=== PATIENT | female | born 1940 | race Caucasian/White ===

== ENCOUNTER → 2017-07-23 | Outpatient (CLI) | payer MEDICARE ==
[~2017-07-23] MED LIST: REGADENOSON 0.4 MG/5 ML SYRINGE IV ONE
--- NOTE | 2017-07-23 11:05 | ECHOF ---
Referral Reason:R94.35 EKG [id number] Chest [id number] Hypertension MEASUREMENTS -------- HEIGHT: 167.6 cm WEIGHT: 68.0 kg BP: IVSd: 1.0 cm (0.6 - 1.1) LVIDd: 2.6 cm (3.9 - 5.3) LVPWd: 1.3 cm (0.6 - 1.1) IVSs: 1.5 cm LVIDs: 1.3 cm LVPWs: 1.7 cm LAESV Index (A-L): 23.57 ml/m Ao Diam: 2.9 cm (2.0 - 3.7) AV Cusp: 1.6 cm (1.5 - 2.6) LA Diam: 2.5 cm (2.7 - 3.8) MV EXCURSION: 13.666 mm (> 18.000) MV EF SLOPE: 67 mm/s (70 - 150) EPSS: 0.3 cm MV E Patrick: 0.83 m/s MV DecT: 127 ms MV A Patrick: 1.06 m/s MV E/A Ratio: 0.78 RAP: 5.00 mmHg RVSP: 20.73 mmHg FINDINGS -------- Sinus rhythm. This was a technically good study. The left ventricular size is normal. There is borderline concentric left ventricular hypertrophy. Overall left ventricular systolic function is normal with, an EF between 55 - 60 %. The right ventricle is normal in size and function. The left atrium is normal in size. The right atrium is normal in size. Aortic valve is trileaflet and is mildly thickened. The mitral valve leaflets are mildly thickened. Mild mitral regurgitation is present. Mild tricuspid regurgitation present. The right ventricular systolic pressure, as measured by Doppl er, is 20.73mmHg. Pulmonic valve appears structurally normal. The aortic root, ascending aorta and aortic arch are normal. The pericardium is normal. CONCLUSIONS -------- 1. Sinus rhythm. 2. This was a technically good study. 3. The left ventricular size is normal. 4. There is borderline concentric left ventricular hypertrophy. 5. Overall left ventricular systolic function is normal with, an EF between 55 - 60 %. 6. The right ventricle is normal in size and function. 7. The left atrium is normal in size. 8. The right atrium is normal in size. 9. Aortic valve is trileaflet and is mildly thickened. 10. The mitral valve leaflets are mildly thickened. 11. Mild mitral regurgitation is present. 12. Mild tricuspid regurgitation present. 13. The right ventricular systolic pressure, as measured by Doppler, is 20.73mmHg. 14. Pulmonic valve appears structurally normal. 15. The aortic root, ascending aorta and aortic arch are normal. 16. The pericardium is normal. METAL ENGINEERING PROCESS WORKER: Vernell Lind RDCS
--- NOTE | 2017-07-23 12:08 | NM ---
EXAMINATION TYPE: NM stress lexiscan cardiolite DATE OF EXAM: 07/23/2017 COMPARISON: NONE HISTORY: Syncope fatigue weakness TECHNIQUE: After the intravenous administration of 9.5 mCi Tc 99m Sestamibi - Cardiolite resting SPE CT images acquired 45 minutes post injection. The patient received 0.4mg Lexiscan, 23.8 mCi Tc 99m Sestamibi - Stress images obtained [address] injection FINDINGS: No fixed or reversible perfusion defects are evident. Gated wall motion is unremarkable. Ej ection fraction 72% is normal. IMPRESSION: 1. No stress-induced ischemic changes
--- NOTE | 2017-07-23 12:14 | EST ---
EXERCISE STRESS DATE OF SERVICE: 07/23/2017 AGE: 77 SEX: Female HT: 5'6" WT: 150 pounds PROTOCOL: Lexiscan Cardiolite STAGE: DURATION OF EXERCISE: HEART RATE REST: 78 BLOOD PRESSURE REST: 138/88 MAXIMUM HEART RATE ACHIEVED: 103 MAXIMUM BLOOD PRESSURE: 141/83 85% MPHR: 123 100% MPHR: 145 METS: INDICATIONS: History of stroke. CLINICAL INFORMATION: This a Lexiscan Cardiolite stress test, the ECG portion report. Nuclear portion will be reported separately by Radiology. Baseline heart rate 78 beats per minute. Baseline blood pressure 138/88 mmHg. The patient received Lexiscan infusion per protocol. No chest pain noted. A 12-lead ECG at baseline was normal and there were no ST-segment abnormalities noted. Heart rate and blood pressure remained stable during the test. MMODL / IJN: [id number] /
== END | disposition home or self-care (01) ==
LOC: RADNMMAIN 07:52
PROVIDERS: ATTEND Family Medicine
DX: I08.3 Combined rheumatic disorders of mitral, aortic and tricuspid valves (principal); R55 Syncope and collapse; Z88.2 Allergy status to sulfonamides
CPT/HCPCS: 93017; 93306; 78452; A9500; J2785

== ENCOUNTER 2023-04-27 15:00 | Inpatient (IN) | payer MEDICARE ==
[2023-04-27] MEDS ORDERED: SODIUM CHLORIDE 0.9% 1,000 ML IV STA (15:23)
--- NOTE | 2023-04-27 15:25 | ED ---
General Adult HPI - General Chief complaint: Shortness of Breath Stated complaint: COVID+,Dehydration,General Weakness Time Seen by Provider: 04/27/23 15:03 Source: patient, EMS, RN notes reviewed Mode of arrival: EMS Limitations: no limitations - History of Present Illness Initial comments: Patient is a pleasant 82-year-old female sent to the emergency department with concerns for general weakness. Patient states she tested positive at home 1 week ago for covid 19 infection. Patient has been sick for a couple days prior to that. Patient has generalized weakness and fatigue. Patient does have cough. No significant dyspnea. Patient has decreased oral intake and decreased appetite. Patient has fatigue and general weakness. Patient does have history of lung cancer. Patient just finished a round of chemotherapy and is pending pet scan for further evaluation. - Related Data Home Medications Medication Instructions Recorded Confirmed ALPRAZolam [Xanax] 0.5 mg PO BID PRN 04/27/23 04/27/23 Acetaminophen Tab [Tylenol Tab] 750 mg PO Q4H PRN MDD 10 TABLETS 04/27/23 04/27/23 Albuterol Sulfate [Albuterol 1 puff PO RT-Q4H PRN 04/27/23 04/27/23 Sulfate Hfa] Ascorbic Acid [Vitamin C] 500 mg PO HS 04/27/23 04/27/23 Aspirin EC [Ecotrin Low Dose] 81 mg PO DAILY 04/27/23 04/27/23 Benzonatate [Tessalon Perle] 200 mg PO TID PRN 04/27/23 04/27/23 Calcium Carbonate [Calcium] 600 mg PO HS 04/27/23 04/27/23 Cholecalciferol [Vitamin D3 (25 25 mcg PO HS 04/27/23 04/27/23 Mcg = 1000 Iu)] Fluticasone Nasal [place] [Flonase 1 spray EA NOSTRIL HS 04/27/23 04/27/23 Nasal [place]] L.acidoph,Paracasei, B.lactis 2 cap PO DAILY 04/27/23 04/27/23 [Probiotic] Levothyroxine Sodium [Synthroid] 75 mcg PO SUMOWETHFR 04/27/23 04/27/23 Levothyroxine Sodium [Synthroid] 88 mcg PO TUSA 04/27/23 04/27/23 Loratadine [Claritin] 10 mg PO DAILY 04/27/23 04/27/23 Megestrol Acetate 625 mg PO DAILY 04/27/23 04/27/23 Omeprazole [PriLOSEC] 20 mg PO DAILY 04/27/23 04/27/23 Prochlorperazine [Compazine] 10 mg PO Q6H PRN 04/27/23 04/27/23 Rivaroxaban [Xarelto] 20 mg PO DAILY 04/27/23 04/27/23 Sertraline [Zoloft] 50 mg PO DAILY 04/27/23 04/27/23 Simvastatin [Zocor] 20 mg PO HS 04/27/23 04/27/23 traMADol HCl [Ultram] 50 - 100 mg PO Q6H PRN 04/27/23 04/27/23 Allergies Allergy/AdvReac Type Severity Reaction Status Date / Time sulfamethoxazole Allergy Rash/Hives Verified 04/27/23 17:56 [From Bactrim] trimethoprim [From Bactrim] Allergy Rash/Hives Verified 04/27/23 17:56 Review of Systems ROS Statement: Those systems with pertinent positive or pertinent negative responses have been documented in the HPI. ROS Other: All systems not noted in ROS Statement are negative. Constitutional: Denies: fever Eyes: Denies: eye pain ENT: Denies: ear pain Respiratory: Reports: as per HPI, cough Endocrine: Reports: fatigue Past Medical History Additional Past Medical History / Comment(s): Lung CA, History of Any Multi-Drug Resistant Organisms: None Reported Past Surgical History: No Surgical Hx Reported Past Psychological History: No Psychological Hx Reported Smoking Status: Former smoker Past Alcohol Use History: None Reported Past Drug Use History: None Reported General Exam Limitations: no limitations General appearance: alert, in no apparent distress Head exam: Present: normocephalic Eye exam: Present: normal appearance Neck exam: Present: normal inspection Respiratory exam: Present: normal lung sounds bilaterally Cardiovascular Exam: Present: regular rate, normal rhythm GI/Abdominal exam: Present: soft. Absent: tenderness Extremities exam: Present: normal inspection. Absent: pedal edema, calf tenderness Neurological exam: Present: alert. Absent: motor sensory deficit Psychiatric exam: Present: flat affect Skin exam: Present: normal color Course Vital Signs 04/27/23 04/27/23 04/27/23 15:05 15:10 15:22 Temperature 98.4 F Pulse Rate 98 Respiratory 18 22 Rate Blood Pressure 113/75 O2 Sat by Pulse 93 L 91 L Oximetry 04/27/23 04/27/23 04/27/23 16:38 18:04 21:00 Temperature 99.2 F Pulse Rate 112 H 106 H 105 H Respiratory 18 18 22 Rate Blood Pressure 126/80 110/73 128/78 O2 Sat by Pulse 96 96 96 Oximetry - Reevaluation(s) Reevaluation #1: 04/27/23 19:27 Chemistry still not resulted. We did call lab and they stated possibly another hour. EKG Findings - EKG Results: EKG: interpreted by ERMD, sinus rhythm, normal axis, normal QRS, normal ST/T EKG shows: tachycardia Medical Decision Making - Medical Decision Making Was pt. sent in by a medical professional or institution (, PA, VIRTUAL OFFICE ASSISTANT, urgent care, hospital, or long term...) When possible be specific @ -No Did you speak to anyone other than the patient for history (EMS, parent, family, police, friend...)? What history was obtained from this source @ -Family arrives and confirms history of lung cancer and pending peT scan tomorrow. Did you review nursing and triage notes (agree or disagree)? Why? @ -I reviewed and agree with nursing and triage notes Were old charts reviewed (outside hosp., previous admission, EMS record, old EKG, old radiological studies, urgent care reports/EKG's, long term records)? Report findings @ -No old charts were reviewed Differential Diagnosis (chest pain, altered mental status, abdominal pain women, abdominal pain men, vaginal bleeding, weakness, fever, dyspnea, syncope, headache, dizziness, GI bleed, back pain, seizure, CVA, palpatations, mental health, musculoskeletal)? @ -Differential Dyspnea: Coronary syndrome, arrhythmia, tamponade, asthma, COPD, pulmonary embolism, pneumonia, pneumothorax, pulmonary effusion, anaphylaxis, diabetic ketoacidosis, flailed chest, pulmonary contusion, diaphragmatic rupture, anemia, neuromuscu lar, this is not meant to be an all-inclusive list. EKG interpreted by me (3pts min.). @ -As above X-rays interpreted by me (1pt min.). @ -None done CT interpreted by me (1pt min.). @ -None done U/S interpreted by me (1pt. min.). @ -None done What testing was considered but not performed or refused? (CT, X-rays, U/S, labs)? Why? @ -None What meds were considered but not given or refused? Why? @ -None Did you discuss the management of the patient with other professionals (professionals i.e. , PA, VIRTUAL OFFICE ASSISTANT, lab, RT, psych nurse, geriatric social work professor, respiratory care assistant, teacher, disbursing officer, case work aide)? Give summary @ -Case was discussed with practitioner Peggy Olson who will admit covering hospital call Was smoking cessation discussed for >3mins.? @ -No Was critical care preformed (if so, how long)? @ -32 minutes critical care time Were there social determinants of health that impacted care today? How? (Homelessness, low income, unemployed, alcoholism, drug addiction, transportation, low edu. Level, literacy, decrease access to med. care, residential, rehab)? @ -No Was there de-escalation of care discussed even if they declined (Discuss DNR or withdrawal of care, Hospice)? DNR status @ -No What co-morbidities impacted this encounter? (DM, HTN, Smoking, COPD, CAD, C ancer, CVA, ARF, Chemo, Hep., AIDS, mental health diagnosis, sleep apnea, morbid obesity)? @ -None Was patient admitted / discharged? Hospital course, mention meds given and route, prescriptions, significant lab abnormalities, going to OR and other pertinent info. @ -Patient evaluated. Patient and family updated. Patient will be admitted with pulmonary and oncology consults . There is concern for pneumonia despite COVID-19 is patient does have elevated white blood cell count and Pro calcitonin. IV antibiotics have been ordered. Blood culture and lactic acid have been ordered previously. Undiagnosed new problem with uncertain prognosis? @ -No Drug Therapy requiring intensive monitoring for toxicity (Heparin, Nitro, Insulin, Cardizem)? @ -No Were any procedures done? @ -No Diagnosis/symptom? @ -Pneumonia, weakness, COVID-19, sepsis Acute, or Chronic, or Acute on Chronic? @ -Acute, acute, acute, acute Uncomplicated (without systemic symptoms) or Complicated (systemic symptoms)? @ -default Side effects of treatment? @ -No Exacerbation, Progression, or Severe Exacerbation? @ -No Poses a threat to life or bodily function? How? (Chest pain, USA, NC, pneumonia, PE, COPD, DKA, ARF, appy, cholecystitis, CVA, Diverticulitis, Homicidal, Suicidal, threat to staff... and all critical care pts) @ -No - Lab Data Result diagrams: 04/27/23 15:25 04/27/23 15:25 Lab Results 04/27/23 04/27/23 04/27/23 Range/Units 15:25 15:25 15:25 WBC 25.9 H (3.8-10.6) k/uL RBC 3.17 L (3.80-5.40) m/uL Hgb 10.8 L (11.4-16.0) gm/dL Hct 32.5 L (34.0-46.0) % MCV 102.5 H (80.0-100.0) fL MCH 34.1 (25.0-35.0) pg MCHC 33.3 (31.0-37.0) g/dL RDW 16.6 H (11.5-15.5) % Plt Count 452 H (150-450) k/uL MPV 7.3 Neutrophils % 89 % Lymphocytes % 7 % Monocytes % 3 % Eosinophils % 1 % Basophils % 0 % Neutrophils # 23.1 H (1.3-7.7) k/uL Lymphocytes # 1.7 (1.0-4.8) k/uL Monocytes # 0.7 (0-1.0) k/uL Eosinophils # 0.2 (0-0.7) k/uL Basophils # 0.1 (0-0.2) k/uL Anisocytosis Slight Macrocytosis Moderate PT 13.6 H (10.0-12.5) sec INR 1.3 H (<1.2) APTT 32.0 H (22.0-30.0) sec Sodium 131 L (135-145) mmol/L Potassium 4.1 (3.5-5.5) mmol/L Chloride 96 (96-109) mmol/L Carbon Dioxide 19.7 L (21.6-31.8) mmol/L Anion Gap 15.30 H (4.00-12.00) mmol/L BUN 14.7 (9.0-27.0) mg/dL Creatinine 0.6 (0.6-1.5) mg/dL Est GFR (CKD-EPI) 91 (>=60) Glucose 109 (70-110) mg/dL Plasma Lactic Acid Kevin (0.7-2.0) mmol/L Calcium 8.4 L (8.7-10.3) mg/dL Magnesium 1.8 (1.5-2.4) mg/dL Ferritin 771.0 H (10.0-291.0) ng/mL Total Bilirubin 0.3 (0.3-1.2) mg/dL AST 70 H (13-35) U/L ALT 165 H (8-44) U/L Alkaline Phosphatase 191 H (41-126) U/L Lactate Dehydrogenase 257 H (120-246) U/L C-Reactive Protein 21.60 H (0.00-0.80) mg/dL Total Protein 5.8 L (6.2-8.2) g/dL Albumin 3.2 L (3.8-4.9) g/dL Procalcitonin (0.02-0.09) ng/mL Urine Color Urine Appearance (Clear) Urine pH (5.0-8.0) Ur Specific [place] (1.001-1.035) Urine Protein (Negative) Urine Glucose (UA) (Negative) Urine Ketones (Negative) Urine Blood (Negative) Urine Nitrite (Negative) Urine Bilirubin (Negative) Urine Urobilinogen (<2.0) mg/dL Ur Leukocyte Esterase (Negative) Influenza Type A (PCR) (Not Detectd) Influenza Type B (PCR) (Not Detectd) RSV (PCR) (Not Detectd) SARS-CoV-2 (PCR) (Not Detectd) 04/27/23 04/27/23 04/27/23 Range/Units 15:25 15:25 15:25 WBC (3.8-10.6) k/uL RBC (3.80-5.40) m/uL Hgb (11.4-16.0) gm/dL Hct (34.0-46.0) % MCV (80.0-100.0) fL MCH (25.0-35.0) pg MCHC (31.0-37.0) g/dL RDW (11.5-15.5) % Plt Count (150-450) k/uL MPV Neutrophils % % Lymphocytes % % Monocytes % % Eosinophils % % Basophils % % Neutrophils # (1.3-7.7) k/uL Lymphocytes # (1.0-4.8) k/uL Monocytes # (0-1.0) k/uL Eosinophils # (0-0.7) k/uL Basophils # (0-0.2) k/uL Anisocytosis Macrocytosis PT (10.0-12.5) sec INR (<1.2) APTT (22.0-30.0) sec Sodium (135-145) mmol/L Potassium (3.5-5.5) mmol/L Chloride (96-109) mmol/L Carbon Dioxide (21.6-31.8) mmol/L Anion Gap (4.00-12.00) mmol/L BUN (9.0-27.0) mg/dL Creatinine (0.6-1.5) mg/dL Est GFR (CKD-EPI) (>=60) Glucose (70-110) mg/dL Plasma Lactic Acid Kevin 1.2 (0.7-2.0) mmol/L Calcium (8.7-10.3) mg/dL Magnesium (1.5-2.4) mg/dL Ferritin (10.0-291.0) ng/mL Total Bilirubin (0.3-1.2) mg/dL AST (13-35) U/L ALT (8-44) U/L Alkaline Phosphatase (41-126) U/L Lactate Dehydrogenase (120-246) U/L C-Reactive Protein (0.00-0.80) mg/dL Total Protein (6.2-8.2) g/dL Albumin (3.8-4.9) g/dL Procalcitonin 5.58 H (0.02-0.09) ng/mL Urine Color Urine Appearance (Clear) Urine pH (5.0-8.0) Ur Specific [place] (1.001-1.035) Urine Protein (Negative) Urine Glucose (UA) (Negative) Urine Ketones (Negative) Urine Blood (Negative) Urine Nitrite (Negative) Urine Bilirubin (Negative) Urine Urobilinogen (<2.0) mg/dL Ur Leukocyte Esterase (Negative) Influenza Type A (PCR) Not Detected (Not Detectd) Influenza Type B (PCR) Not Detected (Not Detectd) RSV (PCR) Not Detected (Not Detectd) SARS-CoV-2 (PCR) Detected A (Not Detectd) 04/27/23 Range/Units 15:25 WBC (3.8-10.6) k/uL RBC (3.80-5.40) m/uL Hgb (11.4-16.0) gm/dL Hct (34.0-46.0) % MCV (80.0-100.0) fL MCH (25.0-35.0) pg MCHC (31.0-37.0) g/dL RDW (11.5-15.5) % Plt Count (150-450) k/uL MPV Neutrophils % % Lymphocytes % % Monocytes % % Eosinophils % % Basophils % % Neutrophils # (1.3-7.7) k/uL Lymphocytes # (1.0-4.8) k/uL Monocytes # (0-1.0) k/uL Eosinophils # (0-0.7) k/uL Basophils # (0-0.2) k/uL Anisocytosis Macrocytosis PT (10.0-12.5) sec INR (<1.2) APTT (22.0-30.0) sec Sodium (135-145) mmol/L Potassium (3.5-5.5) mmol/L Chloride (96-109) mmol/L Carbon Dioxide (21.6-31.8) mmol/L Anion Gap (4.00-12.00) mmol/L BUN (9.0-27.0) mg/dL Creatinine (0.6-1.5) mg/dL Est GFR (CKD-EPI) (>=60) Glucose (70-110) mg/dL Plasma Lactic Acid Kevin (0.7-2.0) mmol/L Calcium (8.7-10.3) mg/dL Magnesium (1.5-2.4) mg/dL Ferritin (10.0-291.0) ng/mL Total Bilirubin (0.3-1.2) mg/dL AST (13-35) U/L ALT (8-44) U/L Alkaline Phosphatase (41-126) U/L Lactate Dehydrogenase (120-246) U/L C-Reactive Protein (0.00-0.80) mg/dL Total Protein (6.2-8.2) g/dL Albumin (3.8-4.9) g/dL Procalcitonin (0.02-0.09) ng/mL Urine Color Light Yellow Urine Appearance Clear (Clear) Urine pH 6.0 (5.0-8.0) Ur Specific [place] 1.021 (1.001-1.035) Urine Protein Trace H (Negative) Urine Glucose (UA) Negative (Negative) Urine Ketones Negative (Negative) Urine Blood Negative (Negative) Urine Nitrite Negative (Negative) Urine Bilirubin Negative (Negative) Urine Urobilinogen <2.0 (<2.0) mg/dL Ur Leukocyte Esterase Negative (Negative) Influenza Type A (PCR) (Not Detectd) Influenza Type B (PCR) (Not Detectd) RSV (PCR) (Not Detectd) SARS-CoV-2 (PCR) (Not Detectd) Critical Care Time Critical Care Time: Yes Total Critical Care Time: 32 Disposition Clinical Impression: Pneumonia, Sepsis, Lung cancer, COVID-19 Disposition: ADMITTED IP TO THIS HOSP Is patient prescribed a controlled substance at d/c from ED?: No Referrals: Sophia Law DO [Primary Care Provider] - 1-2 days Time of Disposition: 22:04
--- NOTE | 2023-04-27 15:45 | XR ---
EXAMINATION TYPE: XR chest 1V portable DATE OF EXAM: 04/27/2023 COMPARISON: None INDICATION: Covid TECHNIQUE: Single frontal view of the chest is obtained. FINDINGS: The heart size is normal. The pulmonary vasculature is normal. There is opacification through the lateral right lung. Correlate for a large pleural fluid collection . Consolidation appears to be at the right lower lobe. IMPRESSION: 1. Suggestion of a large pleural fluid collection with a right lower lobe consolidation. Follow-up re commended.
[2023-04-27 15:47] LABS: Anisocytosis Slight; Basophils # (A) 0.1 k/uL (0-0.2); Basophils % (A) 0 %; Eosinophils # (A) 0.2 k/uL (0-0.7); Eosinophils % (A) 1 %; HCT 32.5 % (34.0-46.0); HGB 10.8 gm/dL (11.4-16.0); Lymphocytes # (A) 1.7 k/uL (1.0-4.8); Lymphocytes % (A) 7 %; MCH 34.1 pg (25.0-35.0); MCHC 33.3 g/dL (31.0-37.0); MCV 102.5 fL (80.0-100.0); Macrocytosis Moderate; Mean Platelet Volume 7.3; Monocytes # (A) 0.7 k/uL (0-1.0); Monocytes % (A) 3 %; Neutrophils # (A) 23.1 k/uL (1.3-7.7); Neutrophils % (A) 89 %; Platelet Count 452 k/uL (150-450); RBC 3.17 m/uL (3.80-5.40); RDW 16.6 % (11.5-15.5); WBC 25.9 k/uL (3.8-10.6)
[2023-04-27 15:57] LABS: INR 1.3 (<1.2); Prothrombin Time 13.6 sec (10.0-12.5)
[2023-04-27 17:10] LABS: Appearance,Urine Clear (Clear); Bilirubin,Urine Negative (Negative); Blood,Urine Negative (Negative); Color,Urine Light Yellow; Glucose,Urine (UA) Negative (Negative); Ketones,Urine Negative (Negative); Leukocyte Esterase,Urine Negative (Negative); Nitrite,Urine Negative (Negative); Protein,Urine Trace (Negative); Specific Gravity,Urine 1.021 (1.001-1.035); Urobilinogen,Urine <2.0 mg/dL (<2.0)
[2023-04-27 20:34] LABS: ALT 165 U/L (8-44); AST 70 U/L (13-35); Albumin 3.2 g/dL (3.8-4.9); Alkaline Phosphatase 191 U/L (41-126); Blood Urea Nitrogen 14.7 mg/dL (9.0-27.0); Calcium 8.4 mg/dL (8.7-10.3); Carbon Dioxide 19.7 mmol/L (21.6-31.8); Chloride 96 mmol/L (96-109); Glucose 109 mg/dL (70-110); LDH 257 U/L (120-246); Magnesium 1.8 mg/dL (1.5-2.4); Potassium 4.1 mmol/L (3.5-5.5); Sodium 131 mmol/L (135-145); Total Bilirubin 0.3 mg/dL (0.3-1.2); Total Protein 5.8 g/dL (6.2-8.2)
[2023-04-27] MEDS: traMADol 50 MG TAB PO PRN (21:25)
[2023-04-27] MEDS ORDERED: PNEUMONIA PROTOCOL UTILIZED 1 EACH MISC PO PRN (22:04)
[2023-04-27] MEDS ORDERED: AZITHROMYCIN 500 MG in SODIUM CHLORIDE 0.9% 250 ML IVPB STA (22:04)
[2023-04-27] MEDS ORDERED: RX INFO: IV CONTRAST WAS GIVEN 1 EACH MISC MISCELLANE PRN (22:26)
[2023-04-27] MEDS: SODIUM CHLORIDE 0.9% 1,000 ML IV SCH (22:53)
--- NOTE | 2023-04-28 00:07 | CT ---
EXAM: CT Chest With Intravenous Contrast CLINICAL HISTORY: ITS.REASON CT Reason: history of lung cancer, pneumonia TECHNIQUE: Axial computed tomography images of the chest with intravenous contrast. CTDI is 5.3 mGy and DLP is 232.7 mGy-cm. This CT exam was performed using one or more of the following dose reduction techniques: automated exposure control, adjustment of the mA and/or kV according to patient size, and/or use of iterative reconstruction technique. COMPARISON: No relevant prior studies available. FINDINGS: Lungs: Consolidation and mucous plugging throughout the right upper and middle lobes. Mucous plugging and partial collapse of the right lower lobe. Only a small amount of the right lower lobe is aerated. Partial collapse of the left lower lobe. Pleural space: Small right pleural effusion. Heart: Unremarkable. Mediastinum: Hiatal hernia. Bones/joints: No acute findings. Soft tissues: Unremarkable. Vasculature: Unremarkable. Lymph nodes: Paratracheal and subcarinal adenopathy. IMPRESSION: 1. Consolidation and mucous plugging throughout the right upper and middle lobes. This could all represent malignancy, infection, or a combination of the two. 2. Mucous plugging and partial collapse of the right lower lobe. Only a small amount of the right lower lobe is aerated. 3. Small right pleural effusion. 4. Partial collapse of the left lower lobe. 5. Paratracheal and subcarinal adenopathy. 6. Hiatal hernia.
--- NOTE | 2023-04-28 06:55 | P.CNPUL ---
History of Present Illness Consult date: 04/28/23 Requesting physician: Mau Aguilar Reason for consult: pneumonia Chief complaint: Shortness of breath and cough History of present illness: I am seeing this patient in new consultation today 04/28/2023 after she presented yesterday to the emergency room with acute shortness of breath. She did test positive for COVID-19. Apparently, her had been positive for COVID-19 earlier in the week. Her PCP is Dr. Sophia Law out of [place], [place]. Patient is an 82-year-old female with past medical history significant for lung cancer, patient states she is undergoing systemic treatment with chemotherapy. She is unsure of who here oncologist is. She states her last round of chemotherapy was last week. She does not follow at this facility. She is a very poor historian, and there are no records to review. I'm uncertain if this is the patient's first COVID-19 infection or if she's been previously vaccinated. Patient is currently sitting up in bed, on 5 L/m nasal cannula. She does not normally use home O2. She is very fatigued. She is tachypneic breathing in the 30s to 40s. Patient reports ongoing shortness of breath for the last couple weeks. She's had an associated congested nonproductive cough. Admits to subjective fevers. Denies any hemoptysis. I did order a chest CT with contrast which showed volume loss of the right lung with collapse of right upper and middle lobes. This could be mucous plugging and consolidation as reported by radiologist or the patient's known pulmonary malignancy. There is also partial collapse of the left lower lobe. There is paratracheal and subcarinal adenopathy. CBC on arrival: WBC count 25.9, hemoglobin 10.8, hematocrit 32.5, platelets 452. BMP on arrival: Sodium 131, potassium 4.1, chloride 96, serum bicarb 19, BUN 14, creatinine 0.6, glucose 109. LFTs mildly elevated. UA not concerning for UTI. Procalcitonin elevated at 5.58. Obviously concern for superimposed bacterial infection. Patient is empirically covered on antib iotics. Currently is afebrile. Vitals are stable at this time. Review of Systems REVIEW OF SYSTEMS: CONSTITUTIONAL: Denies any recent significant weight loss or weight gain. Admits subjective fevers at home. EYES: Denies change in vision. EARS, NOSE, MOUTH, THROAT: Denies headaches, denies sore throat. CARDIOVASCULAR: Denies chest pain, palpitations or syncopal episodes. RESPIRATORY: See HPI. Also admits substernal chest pain only with coughing and deep breathing. GASTROINTESTINAL: Denies change in appetite, abdominal pain, nausea and vomitin g, or diarrhea GENITOURINARY: Denies hematuria, denies infections. MUSKULOSKELETAL: Denies pain, denies swelling. INTEGUMENTARY: Denies rash, denies eczema. NEUROLOGICAL: Denies recent memory loss, no recent seizure activity. PSYCHIATRIC: Denies anxiety, denies depression. HEMATOLOGIC/LYMPHATIC: Denies anemia, denies enlarged lymph node Past Medical History Past Medical History: CVA/TIA, GERD/Reflux, Pneumonia, Thyroid Disorder Additional Past Medical History / Comment(s): Lung CA, History of Any Multi-Drug Resistant Organisms: None Reported Past Surgical History: No Surgical Hx Reported Additional Past Surgical History / Comment(s): pt poor historian Past Psychological History: No Psychological Hx Reported Smoking Status: Former smoker Past Alcohol Use History: None Reported Past Drug Use History: None Reported Medications and Allergies Home Medications Medication Instructions Recorded Confirmed Type ALPRAZolam [Xanax] 0.5 mg PO BID PRN 04/27/23 04/27/23 History Acetaminophen Tab [Tylenol Tab] 750 mg PO Q4H PRN MDD 10 TABLETS 04/27/23 04/27/23 History Albuterol Sulfate [Albuterol 1 puff PO RT-Q4H PRN 04/27/23 04/27/23 History Sulfate Hfa] Ascorbic Acid [Vitamin C] 500 mg PO 04/27/23 04/27/23 History Aspirin EC [Ecotrin Low Dose] 81 mg PO DAILY 04/27/23 04/27/23 History Benzonatate [Tessalon Perle] 200 mg PO TID PRN 04/27/23 04/27/23 History Calcium Carbonate [Calcium] 600 mg PO 04/27/23 04/27/23 History Cholecalciferol [Vitamin D3 (25 25 mcg PO HS 04/27/23 04/27/23 History Mcg = 1000 Iu)] Fluticasone Nasal [place] [Flonase 1 spray EA NOSTRIL 04/27/23 04/27/23 History Nasal [place]] L.acidoph,Paracasei, B.lactis 2 cap PO DAILY 04/27/23 04/27/23 History [Probiotic] Levothyroxine Sodium [Synthroid] 75 mcg PO SUMOWETHFR 04/27/23 04/27/23 History Levothyroxine Sodium [Synthroid] 88 mcg PO TUSA 04/27/23 04/27/23 History Loratadine [Claritin] 10 mg PO DAILY 04/27/23 04/27/23 History Megestrol Acetate 625 mg PO DAILY 04/27/23 04/27/23 History Omeprazole [PriLOSEC] 20 mg PO DAILY 04/27/23 04/27/23 History Prochlorperazine [Compazine] 10 mg PO Q6H PRN 04/27/23 04/27/23 History Rivaroxaban [Xarelto] 20 mg PO DAILY 04/27/23 04/27/23 History Sertraline [Zoloft] 50 mg PO DAILY 04/27/23 04/27/23 History Simvastatin [Zocor] 20 mg PO HS 04/27/23 04/27/23 History traMADol HCl [Ultram] 50 - 100 mg PO Q6H PRN 04/27/23 04/27/23 History Allergies Allergy/AdvReac Type Severity Reaction Status Date / Time sulfamethoxazole Allergy Rash/Hives Verified 04/27/23 17:56 [From Bactrim] trimethoprim [From Bactrim] Allergy Rash/Hives Verified 04/27/23 17:56 Physical Exam Vitals: Vital Signs Temp Pulse Pulse Resp BP BP Pulse Ox 04/28/23 00:00 98.6 F 108 H 36 H 138/68 92 L 04/27/23 21:00 105 H 22 128/78 96 04/27/23 18:04 99.2 F 106 H 18 110/73 96 04/27/23 16:38 112 H 18 126/80 96 04/27/23 15:22 22 04/27/23 15:10 91 L 04/27/23 15:05 98.4 F 98 18 113/75 93 L Intake and Output 04/27/23 04/27/23 04/28/23 14:59 22:59 06:59 Other: Weight 61.235 kg 61.235 kg GENERAL EXAM: Alert, 82-year-old white female , very fatigued, and some mild respiratory distress.. HEAD: Normocephalic and atraumatic EYES: Normal reaction of pupils, equal size. NOSE: Clear with pink turbinates. THROAT: No erythema or exudates. NECK: No masses, no JVD. CHEST: No chest wall deformity. LUNGS: Equal air entry with diminished bibasilar lung sounds and scattered crackles. No wheezes or rhonchi. On 5 L/m nasal cannula. She is tachypneic. There is conversational dyspnea and the patient speaks in phrases. No accessory muscle use. CVS: S1 and S2 normal with no audible murmur, regular rhythm. No extra heart sounds ABDOMEN: No hepatosplenomegaly, active bowel sounds, no guarding or rigidity. SPINE: No scoliosis or deformity SKIN: No rashes CENTRAL NERVOUS SYSTEM: No focal deficits, tone is normal in all 4 extremities. EXTREMITIES: There is no peripheral edema, clubbing, or cyanosis. Peripheral pulses are intact. Results - Laboratory Findings CBC and BMP: 04/27/23 15:25 04/27/23 15:25 PT/INR, D-dimer PT 13.6 sec (10.0-12.5) H 04/27/23 15:25 INR 1.3 (<1.2) H 04/27/23 15:25 Abnormal lab findings: Abnormal Labs 04/27/23 04/27/23 04/27/23 15:25 15:25 15:25 WBC 25.9 H RBC 3.17 L Hgb 10.8 L Hct 32.5 L MCV 102.5 H RDW 16.6 H Plt Count 452 H Neutrophils # 23.1 H PT 13.6 H INR 1.3 H APTT 32.0 H Sodium 131 L Carbon Dioxide 19.7 L Anion Gap 15.30 H Calcium 8.4 L Ferritin 771.0 H AST 70 H ALT 165 H Alkaline Phosphatase 191 H Lactate Dehydrogenase 257 H C-Reactive Protein 21.60 H Total Protein 5.8 L Albumin 3.2 L Procalcitonin Urine Protein SARS-CoV-2 (PCR) 04/27/23 04/27/23 04/27/23 15:25 15:25 15:25 WBC RBC Hgb Hct MCV RDW Plt Count Neutrophils # PT INR APTT Sodium Carbon Dioxide Anion Gap Calcium Ferritin AST ALT Alkaline Phosphatase Lactate Dehydrogenase C-Reactive Protein Total Protein Albumin Procalcitonin 5.58 H Urine Protein Trace H SARS-CoV-2 (PCR) Detected A - Diagnostic Findings Chest x-ray: image reviewed CT scan - chest: image reviewed Assessment and Plan Assessment: Acute hypoxemic respiratory failure, currently on 5 L/m nasal cannula, likely multifactorial, secondary to acute COVID-19 infection/pneumonia, possible superimposed bacterial pneumonia, and primary lung cancer. Chest CT with contrast which showed volume loss of the right lung with collapse of right upper and middle lobes. There is minimal aeration of the right lower lobe. This could be mucous plugging and consolidation as reported by radiologist or the patient's known pulmonary malignancy. There is also partial collapse of the left lower lobe. There is paratracheal and subcarinal adenopathy. Leukocytosis, secondary to above Metabolic anion gap acidosis, likely related to COVID 19 pneumonia and sepsis Acute metabolic encephalopathy, secondary to above hypothyroidism History of hyperlipidemia Remote history of tobacco dependence Plan: Patient's medications, labs, imaging reviewed. Continue supplemental oxygen Continue bronchodilators Start the patient on IVP Decadron Continue empiric antibiotics. Procalcitonin level was elevated at 5.58. Blood cultures are pending. Medical oncology has been added to the case. Overall prognosis is guarded related to above-mentioned comorbidities We'll continue to follow and further recommendations are forthcoming. I have personally seen and examined the patient, performed the documentation and the assessment and plan as written. Number of minutes spent on the visit:20 Time with Patient: Greater than 30
--- NOTE | 2023-04-28 09:07 | XR ---
EXAMINATION TYPE: XR chest 1V portable DATE OF EXAM: 04/28/2023 COMPARISON: 04/27/2023 INDICATION: Pneumonia TECHNIQUE: Single frontal view of the chest is obtained. FINDINGS: The heart size is normal. The pulmonary vasculature is normal. Right lung is opacified. Some right lower lobe air bronchograms may be present. IMPRESSION: 1. Stable right lung opacification. Atelectasis, pneumonia, pleural effusions are within the differen tial. Follow-up is recommended.
[2023-04-28] MEDS: AZITHROMYCIN 500 MG TAB PO SCH (09:45)
[2023-04-28] MEDS: DEXAMETHASONE SOD PHOSPHATE 10 MG/ML 1 ML VIAL IVP SCH (09:45)
[2023-04-28] MEDS: SODIUM CHLORIDE 0.9% 1,000 ML IV SCH ×2 (09:46→20:16)
[2023-04-28] MEDS: ALBUTEROL HFA INHALER INHALATION PRN ×3 (09:50→17:22)
[2023-04-28] MEDS: traMADol 50 MG TAB PO PRN (09:58)
[2023-04-28 11:29] LABS: Anisocytosis Slight; Basophils % (A) 0 %; Eosinophils # (A) 0.1 k/uL (0-0.7); Eosinophils % (A) 1 %; HCT 30.7 % (34.0-46.0); HGB 9.9 gm/dL (11.4-16.0); Hypochromasia Slight; Lymphocytes # (A) 1.4 k/uL (1.0-4.8); Lymphocytes % (A) 6 %; MCH 33.9 pg (25.0-35.0); MCHC 32.2 g/dL (31.0-37.0); MCV 105.3 fL (80.0-100.0); Macrocytosis Moderate; Mean Platelet Volume 7.5; Monocytes # (A) 0.5 k/uL (0-1.0); Monocytes % (A) 2 %; Neutrophils % (A) 91 %; Platelet Count 456 k/uL (150-450); RBC 2.92 m/uL (3.80-5.40); RDW 16.6 % (11.5-15.5); WBC 22.1 k/uL (3.8-10.6)
[2023-04-28 11:45] LABS: African American GFR (CKD) >90 (>60 ml/min/1.73 sqM); Anion Gap 11 mmol/L; Blood Urea Nitrogen 11 mg/dL (7-17); Calcium 7.7 mg/dL (8.4-10.2); Carbon Dioxide 17 mmol/L (22-30); Chloride 102 mmol/L (98-107); Glucose 108 mg/dL (74-99); Non-African American GFR(CKD) >90 (>60 ml/min/1.73 sqM); Potassium 4.1 mmol/L (3.5-5.1); Sodium 130 mmol/L (137-145)
--- NOTE | 2023-04-28 14:23 | P.HPIM ---
History of Present Illness H&P Date: 04/28/23 History of present illness; patient is a 82-year-old lady with past medical sign ificant for lung cancer brought to the ER for generalized weakness. Patient stated that she has not been feeling herself in the last few days. Patient has been complaining of generalized weakness and fatigue. Patient did test positive for COVID-19 one week back. Patient has been complaining of cough and shortness of breath. Cough is productive. Denies any chest pain or palpitation. There is orthopnea or pnd. No complete of fever or chills at home. Patient has been complaining of decreased appetite. Because of the symptoms, patient came to the ER Initial lab work done in the ER showed WBC 25.9, hemoglobin 10.8, platelet count 452, sodium 131, potassium 4.1, BUN 14.7, creatinine 0.6, AST 70, ALT 165, CRP 21.6 UA negative for infection Influenza A not detected Influenza B not detected RSV not detected COVID-19 detected Chest x-ray done in the ER showed large pleural fluid election with right lower lobe consolidation CT chest done showed consolidation and mucous plugging throughout the right upper and middle lobes. Mucous plugging and collapse of the right lower lobe Patient admitted to internal medicine service REVIEW OF SYSTEMS: CONSTITUTIONAL: As mentioned above HEENT: No recent visual problems or hearing problems. Denied any sore throat. CARDIOVASCULAR: No chest pain, orthopnea, PND, no palpitations, no syncope. PULMONARY: As mentioned above GASTROINTESTINAL: No diarrhea, no nausea, no vomiting, no abdominal pain. NEUROLOGICAL: As mentioned above HEMATOLOGICAL: Denies any bleeding or petechiae. GENITOURINARY: Denies any burning micturition, frequency, or urgency. MUSCULOSKELETAL/RHEUMATOLOGICAL: Denies any joint pain, swelling, or any muscle pain. ENDOCRINE: Denies any polyuria or polydipsia. The rest of the 14-point review of systems is negative. PHYSICAL EXAMINATION: GENERAL: The patient is alert and oriented x3, chronically ill-looking HEENT: Pupils are round and equally reacting to light. EOMI. No scleral icterus. No conjunctival pallor. Normocephalic, atraumatic. No pharyngeal erythema. No thyromegaly. CARDIOVASCULAR: S1 and S2 present. No murmurs, rubs, or gallops. PULMONARY: Diminished breath sounds at the bases bilaterally., No crackles audible ABDOMEN: Soft, nontender, nondistended, normoactive bowel sounds. No palpable o rganomegaly. MUSCULOSKELETAL: No joint swelling or deformity. EXTREMITIES: No cyanosis, clubbing, or pedal edema. NEUROLOGICAL: Gross neurological examination did not reveal any focal deficits. SKIN: No rashes. Assessment and plan Acute hypoxemic respiratory failure COVID-19 pneumonia superimposed bacterial pneumonia History of lung cancer Leukocytosis Acute metabolic encephalopathy hypothyroidism History of hyperlipidemia Monitor vital signs Monitor CBC Monitor CMP Continue telemetry monitoring Follow-up on blood cultures Continue Rocephin and azithromycin Continue IV Solu-Medrol Pulmonology following ID consulted Labs and medication were reviewed.. Continue same treatment. Continue with symptomatic treatment. Resume home medication. Monitor labs and vitals. DVT and GI prophylaxis. Further recommendations as per clinical course of the patient Dictation was produced using [email or web address] dictation software. please excuse any grammatical, word or spelling errors. Past Medical History Past Medical History: CVA/TIA, GERD/Reflux, Pneumonia, Thyroid Disorder Additional Past Medical History / Comment(s): Lung CA, History of Any Multi-Drug Resistant Organisms: None Reported Past Surgical History: No Surgical Hx Reported Additional Past Surgical History / Comment(s): pt poor historian Past Psychological History: No Psychological Hx Reported Smoking Status: Former smoker Past Alcohol Use History: None Reported Past Drug Use History: None Reported Medications and Allergies Home Medications Medication Instructions Recorded Confirmed Type ALPRAZolam [Xanax] 0.5 mg PO BID PRN 04/27/23 04/27/23 History Acetaminophen Tab [Tylenol Tab] 750 mg PO Q4H PRN MDD 10 TABLETS 04/27/23 04/27/23 History Albuterol Sulfate [Albuterol 1 puff PO RT-Q4H PRN 04/27/23 04/27/23 History Sulfate Hfa] Ascorbic Acid [Vitamin C] 500 mg PO HS 04/27/23 04/27/23 History Aspirin EC [Ecotrin Low Dose] 81 mg PO DAILY 04/27/23 04/27/23 History Benzonatate [Tessalon Perle] 200 mg PO TID PRN 04/27/23 04/27/23 History Calcium Carbonate [Calcium] 600 mg PO HS 04/27/23 04/27/23 History Cholecalciferol [Vitamin D3 (25 25 mcg PO HS 04/27/23 04/27/23 History Mcg = 1000 Iu)] Fluticasone Nasal [place] [Flonase 1 spray EA NOSTRIL HS 04/27/23 04/27/23 History Nasal [place]] L.acidoph,Paracasei, B.lactis 2 cap PO DAILY 04/27/23 04/27/23 History [Probiotic] Levothyroxine Sodium [Synthroid] 75 mcg PO SUMOWETHFR 04/27/23 04/27/23 History Levothyroxine Sodium [Synthroid] 88 mcg PO TUSA 04/27/23 04/27/23 History Loratadine [Claritin] 10 mg PO DAILY 04/27/23 04/27/23 History Megestrol Acetate 625 mg PO DAILY 04/27/23 04/27/23 History Omeprazole [PriLOSEC] 20 mg PO DAILY 04/27/23 04/27/23 History Prochlorperazine [Compazine] 10 mg PO Q6H PRN 04/27/23 04/27/23 History Rivaroxaban [Xarelto] 20 mg PO DAILY 04/27/23 04/27/23 History Sertraline [Zoloft] 50 mg PO DAILY 04/27/23 04/27/23 History Simvastatin [Zocor] 20 mg PO HS 04/27/23 04/27/23 History traMADol HCl [Ultram] 50 - 100 mg PO Q6H PRN 04/27/23 04/27/23 History Allergies Allergy/AdvReac Type Severity Reaction Status Date / Time sulfamethoxazole Allergy Rash/Hives Verified 04/27/23 17:56 [From Bactrim] trimethoprim [From Bactrim] Allergy Rash/Hives Verified 04/27/23 17:56 Physical Exam Vitals: Vital Signs Temp Pulse Pulse Resp BP BP Pulse Ox 04/28/23 10:00 96 23 04/28/23 09:54 90 L 04/28/23 08:20 90 L 04/28/23 08:00 98.8 F 96 23 114/88 93 L 04/28/23 04:00 32 H 04/28/23 00:30 46 H 04/28/23 00:00 98.6 F 108 H 36 H 138/68 92 L 04/27/23 21:00 105 H 22 128/78 96 04/27/23 18:04 99.2 F 106 H 18 110/73 96 04/27/23 16:38 112 H 18 126/80 96 04/27/23 15:22 22 04/27/23 15:10 91 L 04/27/23 15:05 98.4 F 98 18 113/75 93 L Intake and Output 04/27/23 04/28/23 04/28/23 22:59 06:59 14:59 Other: Voiding Method External Catheter Weight 61.235 kg 61.235 kg Results CBC & Chem 7: 04/28/23 11:06 04/28/23 11:06 Labs: Abnormal Lab Results - Last 24 Hours (Table) 04/27/23 04/27/23 04/27/23 Range/Units 15:25 15:25 15:25 WBC 25.9 H (3.8-10.6) k/uL RBC 3.17 L (3.80-5.40) m/uL Hgb 10.8 L (11.4-16.0) gm/dL Hct 32.5 L (34.0-46.0) % MCV 102.5 H (80.0-100.0) fL RDW 16.6 H (11.5-15.5) % Plt Count 452 H (150-450) k/uL Neutrophils # 23.1 H (1.3-7.7) k/uL PT 13.6 H (10.0-12.5) sec INR 1.3 H (<1.2) APTT 32.0 H (22.0-30.0) sec Sodium 131 L (135-145) mmol/L Carbon Dioxide 19.7 L (21.6-31.8) mmol/L Anion Gap 15.30 H (4.00-12.00) mmol/L Calcium 8.4 L (8.7-10.3) mg/dL Ferritin 771.0 H (10.0-291.0) ng/mL AST 70 H (13-35) U/L ALT 165 H (8-44) U/L Alkaline Phosphatase 191 H (41-126) U/L Lactate Dehydrogenase 257 H (120-246) U/L C-Reactive Protein 21.60 H (0.00-0.80) mg/dL Total Protein 5.8 L (6.2-8.2) g/dL Albumin 3.2 L (3.8-4.9) g/dL Procalcitonin (0.02-0.09) ng/mL Urine Protein (Negative) SARS-CoV-2 (PCR) (Not Detectd) 04/27/23 04/27/23 04/27/23 Range/Units 15:25 15:25 15:25 WBC (3.8-10.6) k/uL RBC (3.80-5.40) m/uL Hgb (11.4-16.0) gm/dL Hct (34.0-46.0) % MCV (80.0-100.0) fL RDW (11.5-15.5) % Plt Count (150-450) k/uL Neutrophils # (1.3-7.7) k/uL PT (10.0-12.5) sec INR (<1.2) APTT (22.0-30.0) sec Sodium (135-145) mmol/L Carbon Dioxide (21.6-31.8) mmol/L Anion Gap (4.00-12.00) mmol/L Calcium (8.7-10.3) mg/dL Ferritin (10.0-291.0) ng/mL AST (13-35) U/L ALT (8-44) U/L Alkaline Phosphatase (41-126) U/L Lactate Dehydrogenase (120-246) U/L C-Reactive Protein (0.00-0.80) mg/dL Total Protein (6.2-8.2) g/dL Albumin (3.8-4.9) g/dL Procalcitonin 5.58 H (0.02-0.09) ng/mL Urine Protein Trace H (Negative) SARS-CoV-2 (PCR) Detected A (Not Detectd)
--- NOTE | 2023-04-28 15:15 | P.CONS ---
History of Present Illness - Reason for Consult Consult date: 04/28/23 oncological care Requesting physician: Mau Aguilar - Chief Complaint SOB - History of Present Illness Patient is an 82-year-old female with a significant history of CVA and lung cancer. Patient follows with Dr. Mckeon out of [place] for her oncological care. She reports she has completed 4 cycles of chemotherapy, receiving last cycle approximately 2 weeks ago. She is unaware of what regimen she is on. She was scheduled for PET/CT today outpatient but missed due to hospitalization. Patient presented to the emergency room with complaints of progressing shortness of breath. Chest x-ray revealed large pleural effusion collection with a right lower lobe consolidation. CT chest revealed consolidation and mucous plugging throughout the right upper and middle lobes. Mucous plugging and partial collapse of the right lower lobe. Small right pleural effusion. Partial collapse of the left lower lobe. Paratracheal and subcarinal adenopathy. Patient tested positive for COVID. Abx started. Pulmonology following with plan for possible bronch. CBC revealed, WBC 25.9, hemoglobin 10.8, platelets 452,000. Bilirubin 0.3, elevated LFTs. LDH elevated at 257. Pro-calcitonin 5.58. Patient afebrile, 93% SPO2 on 6 L nasal cannula Review of Systems 10 point ROS is negative except as stated in the HPI Past Medical History Past Medical History: CVA/TIA, GERD/Reflux, Pneumonia, Thyroid Disorder Additional Past Medical History / Comment(s): Lung CA, History of Any Multi-Drug Resistant Organisms: None Reported Past Surgical History: No Surgical Hx Reported Additional Past Surgical History / Comment(s): pt poor historian Past Psychological History: No Psychological Hx Reported Smoking Status: Former smoker Past Alcohol Use History: None Reported Past Drug Use History: None Reported Medications and Allergies Home Medications Medication Instructions Recorded Confirmed Type ALPRAZolam [Xanax] 0.5 mg PO BID PRN 04/27/23 04/27/23 History Acetaminophen Tab [Tylenol Tab] 750 mg PO Q4H PRN MDD 10 TABLETS 04/27/23 04/27/23 History Albuterol Sulfate [Albuterol 1 puff PO RT-Q4H PRN 04/27/23 04/27/23 History Sulfate Hfa] Ascorbic Acid [Vitamin C] 500 mg PO HS 04/27/23 04/27/23 History Aspirin EC [Ecotrin Low Dose] 81 mg PO DAILY 04/27/23 04/27/23 History Benzonatate [Tessalon Perle] 200 mg PO TID PRN 04/27/23 04/27/23 History Calcium Carbonate [Calcium] 600 mg PO HS 04/27/23 04/27/23 History Cholecalciferol [Vitamin D3 (25 25 mcg PO HS 04/27/23 04/27/23 History Mcg = 1000 Iu)] Fluticasone Nasal Fletcher [Flonase 1 spray EA NOSTRIL HS 04/27/23 04/27/23 History Nasal Fletcher] L.acidoph,Paracasei, B.lactis 2 cap PO DAILY 04/27/23 04/27/23 History [Probiotic] Levothyroxine Sodium [Synthroid] 75 mcg PO SUMOWETHFR 04/27/23 04/27/23 History Levothyroxine Sodium [Synthroid] 88 mcg PO TUSA 04/27/23 04/27/23 History Loratadine [Claritin] 10 mg PO DAILY 04/27/23 04/27/23 History Megestrol Acetate 625 mg PO DAILY 04/27/23 04/27/23 History Omeprazole [PriLOSEC] 20 mg PO DAILY 04/27/23 04/27/23 History Prochlorperazine [Compazine] 10 mg PO Q6H PRN 04/27/23 04/27/23 History Rivaroxaban [Xarelto] 20 mg PO DAILY 04/27/23 04/27/23 History Sertraline [Zoloft] 50 mg PO DAILY 04/27/23 04/27/23 History Simvastatin [Zocor] 20 mg PO 04/27/23 04/27/23 History traMADol HCl [Ultram] 50 - 100 mg PO Q6H PRN 04/27/23 04/27/23 History Allergies Allergy/AdvReac Type Severity Reaction Status Date / Time sulfamethoxazole Allergy Rash/Hives Verified 04/27/23 17:56 [From Bactrim] trimethoprim [From Bactrim] Allergy Rash/Hives Verified 04/27/23 17:56 Physical Exam Vitals: Vital Signs Temp Pulse Pulse Resp BP BP Pulse Ox 04/28/23 08:20 90 L 04/28/23 08:00 98.8 F 96 23 114/88 93 L 04/28/23 04:00 32 H 04/28/23 00:30 46 H 04/28/23 00:00 98.6 F 108 H 36 H 138/68 92 L 04/27/23 21:00 105 H 22 128/78 96 04/27/23 18:04 99.2 F 106 H 18 110/73 96 04/27/23 16:38 112 H 18 126/80 96 04/27/23 15:22 22 04/27/23 15:10 91 L 04/27/23 15:05 98.4 F 98 18 113/75 93 L Intake and Output 04/27/23 04/28/23 04/28/23 22:59 06:59 14:59 Other: Weight 61.235 kg 61.235 kg - Constitutional General appearance: average body habitus, no acute distress - EENT Eyes: anicteric sclerae, EOMI ENT: hearing grossly normal - Respiratory Respiratory: right: rales, rhonchi - Cardiovascular Rhythm: regular Heart sounds: normal: S1, S2 - Gastrointestinal General gastrointestinal: soft, no tenderness - Integumentary Integumentary: no cyanotic - Musculoskeletal palpable and tender mass noted on left lateral trunk along 6th-7th rib Musculoskeletal: generalized weakness - Psychiatric Psychiatric: A&O x's 3 Results CBC & Chem 7: 04/28/23 11:06 04/28/23 11:06 Labs: Abnormal Lab Results - Last 24 Hours (Table) 04/27/23 04/27/23 04/27/23 Range/Units 15:25 15:25 15:25 WBC 25.9 H (3.8-10.6) k/uL RBC 3.17 L (3.80-5.40) m/uL Hgb 10.8 L (11.4-16.0) gm/dL Hct 32.5 L (34.0-46.0) % MCV 102.5 H (80.0-100.0) fL RDW 16.6 H (11.5-15.5) % Plt Count 452 H (150-450) k/uL Neutrophils # 23.1 H (1.3-7.7) k/uL PT 13.6 H (10.0-12.5) sec INR 1.3 H (<1.2) APTT 32.0 H (22.0-30.0) sec Sodium 131 L (135-145) mmol/L Carbon Dioxide 19.7 L (21.6-31.8) mmol/L Anion Gap 15.30 H (4.00-12.00) mmol/L Calcium 8.4 L (8.7-10.3) mg/dL Ferritin 771.0 H (10.0-291.0) ng/mL AST 70 H (13-35) U/L ALT 165 H (8-44) U/L Alkaline Phosphatase 191 H (41-126) U/L Lactate Dehydrogenase 257 H (120-246) U/L C-Reactive Protein 21.60 H (0.00-0.80) mg/dL Total Protein 5.8 L (6.2-8.2) g/dL Albumin 3.2 L (3.8-4.9) g/dL Procalcitonin (0.02-0.09) ng/mL Urine Protein (Negative) SARS-CoV-2 (PCR) (Not Detectd) 04/27/23 04/27/23 04/27/23 Range/Units 15:25 15:25 15:25 WBC (3.8-10.6) k/uL RBC (3.80-5.40) m/uL Hgb (11.4-16.0) gm/dL Hct (34.0-46.0) % MCV (80.0-100.0) fL RDW (11.5-15.5) % Plt Count (150-450) k/uL Neutrophils # (1.3-7.7) k/uL PT (10.0-12.5) sec INR (<1.2) APTT (22.0-30.0) sec Sodium (135-145) mmol/L Carbon Dioxide (21.6-31.8) mmol/L Anion Gap (4.00-12.00) mmol/L Calcium (8.7-10.3) mg/dL Ferritin (10.0-291.0) ng/mL AST (13-35) U/L ALT (8-44) U/L Alkaline Phosphatase (41-126) U/L Lactate Dehydrogenase (120-246) U/L C-Reactive Protein (0.00-0.80) mg/dL Total Protein (6.2-8.2) g/dL Albumin (3.8-4.9) g/dL Procalcitonin 5.58 H (0.02-0.09) ng/mL Urine Protein Trace H (Negative) SARS-CoV-2 (PCR) Detected A (Not Detectd) Abdominal x-ray: report reviewed CT scan - chest: report reviewed Assessment and Plan (1) COVID-19 Current Visit: Yes Status: Acute Priority: High Code(s): U07.1 - COVID-19 SNOMED Code(s): 167851477 (2) Lung cancer Current Visit: Yes Status: Acute Priority: High Code(s): C34.90 - MALIGNANT NEOPLASM OF UNSP PART OF UNSP BRONCHUS OR LUNG SNOMED Code(s): 939435520 (3) Pneumonia Current Visit: Yes Status: Acute Priority: High Code(s): J18.9 - PNEUMONIA, UNSPECIFIED ORGANISM SNOMED Code(s): 214878117 Plan: COVID 19/Pneumonia: -Presented with progressing SOB. Tested positive for COVID -Chest x-ray revealed large pleural effusion collection with a right lower lobe consolidation. CT chest revealed consolidation and mucous plugging throughout the right upper and middle lobes. Mucous plugging and partial collapse of the right lower lobe. Small right pleural effusion. Partial collapse of the left lower lobe. Paratracheal and subcarinal adenopathy. Abx started for suspected pneumonia. -Pulmonology following. Agree with plan for possible bronch -Defer management to pulm and IM team Lung caner: -Significant history of lung cancer. Patient follows with Dr. Mckeon out of [place] for her oncological care. She reports she has completed 4 cycles of chemotherapy, receiving last cycle approximately 2 weeks ago. She is unaware of what regimen she is on. She was scheduled for PET/CT today outpatient but missed due to hospitalization. -Will request records from Dr. Mckeon's office -Continue to monitor CBC, as counts could drop due to recent chemo attests: I have seen and examined pt, performed H&P, developed impression and plan of care. Discussed with dictator. Agree with documentation, dictated as a scribe.
[2023-04-28] MEDS: LEVOTHYROXINE 75 MCG TAB PO SCH (16:31)
[2023-04-28] MEDS: ALPRAZolam 0.5 MG TAB PO PRN (17:17)
[2023-04-28] MEDS: guaiFENesin SYRUP 100MG/5ML 200 MG/10 ML CUP PO PRN (17:17)
[2023-04-28] MEDS: ATORVASTATIN 10 MG TAB PO SCH (20:11)
[2023-04-28] MEDS: ASCORBIC ACID 500 MG TAB PO SCH (20:11)
[2023-04-29] MEDS: ACETAMINOPHEN TAB 500 MG TAB PO PRN ×2 (03:35→19:53)
[2023-04-29] MEDS: ALPRAZolam 0.5 MG TAB PO PRN ×2 (05:10→14:48)
[2023-04-29] MEDS: SODIUM CHLORIDE 0.9% 1,000 ML IV SCH ×2 (05:32→15:43)
[2023-04-29] MEDS: LEVOTHYROXINE 75 MCG TAB PO SCH (05:33)
[2023-04-29] MEDS: ASPIRIN 81 MG PO SCH (09:00)
[2023-04-29] MEDS: LORATADINE 10 MG TAB PO SCH (09:00)
[2023-04-29] MEDS: SERTRALINE 50 MG TAB PO SCH (09:00)
[2023-04-29] MEDS: RIVAROXABAN 20 MG TAB PO SCH (09:01)
[2023-04-29] MEDS: MEGESTROL 400 MG/10 ML CUP PO SCH (09:01)
[2023-04-29] MEDS: AZITHROMYCIN 500 MG TAB PO SCH (09:01)
[2023-04-29] MEDS: DEXAMETHASONE SOD PHOSPHATE 10 MG/ML 1 ML VIAL IVP SCH (09:02)
[2023-04-29 10:28] LABS: Anisocytosis Slight; Basophils # (A) 0.1 k/uL (0-0.2); Basophils % (A) 0 %; Eosinophils # (A) 0.1 k/uL (0-0.7); Eosinophils % (A) 0 %; HCT 30.9 % (34.0-46.0); HGB 9.9 gm/dL (11.4-16.0); Hypochromasia Slight; Lymphocytes # (A) 2.5 k/uL (1.0-4.8); Lymphocytes % (A) 10 %; MCH 33.7 pg (25.0-35.0); MCHC 31.9 g/dL (31.0-37.0); MCV 105.4 fL (80.0-100.0); Macrocytosis Moderate; Mean Platelet Volume 7.7; Monocytes # (A) 0.8 k/uL (0-1.0); Monocytes % (A) 3 %; Neutrophils # (A) 22.5 k/uL (1.3-7.7); Neutrophils % (A) 86 %; Platelet Count 620 k/uL (150-450); RBC 2.93 m/uL (3.80-5.40); RDW 16.6 % (11.5-15.5); WBC 26.1 k/uL (3.8-10.6)
[2023-04-29 11:01] LABS: Potassium 3.9 mmol/L (3.5-5.1)
[2023-04-29 11:02] LABS: African American GFR (CKD) >90 (>60 ml/min/1.73 sqM); Anion Gap 10 mmol/L; Blood Urea Nitrogen 10 mg/dL (7-17); Calcium 7.6 mg/dL (8.4-10.2); Carbon Dioxide 18 mmol/L (22-30); Chloride 103 mmol/L (98-107); Glucose 138 mg/dL (74-99); Non-African American GFR(CKD) >90 (>60 ml/min/1.73 sqM); Sodium 131 mmol/L (137-145)
--- NOTE | 2023-04-29 14:12 | P.PN ---
Subjective Progress Note Date: 04/29/23 I am seeing this patient in new consultation today 04/28/2023 after she presented yesterday to the emergency room with acute shortness of breath. She did test positive for COVID-19. Apparently, her had been positive for COVID-19 earlier in the week. Her PCP is Dr. Sophia Law out of [place], [place]. Patient is an 82-year-old female with past medical history significant for lung cancer, patient states she is undergoing systemic treatment with chemotherapy. She is unsure of who here oncologist is. She states her last round of chemotherapy was last week. She does not follow at this facility. She is a very poor historian, and there are no records to review. I'm uncertain if this is the patient's first COVID-19 infection or if she's been previously vaccinated. Patient is currently sitting up in bed, on 5 L/m nasal cannula. She does not normally use home O2. She is very fatigued. She is tachypneic breathing in the 30s to 40s. Patient reports ongoing shortness of breath for the last couple weeks. She's had an associated congested nonproductive cough. Admits to subjective fevers. Denies any hemoptysis. I did order a chest CT with contrast which showed volume loss of the right lung with collapse of right upper and middle lobes. This could be mucous plugging and consolidation as reported by radiologist or the patient's known pulmonary malignancy. There is also partial collapse of the left lower lobe. There is paratracheal and subcarinal adenopathy. CBC on arrival: WBC count 25.9, hemoglobin 10.8, hematocrit 32.5, platelets 452. BMP on arrival: Sodium 131, potassium 4.1, chloride 96, serum bicarb 19, BUN 14, creatinine 0.6, glucose 109. LFTs mildly elevated. UA not concerning for UTI. Procalcitonin elevated at 5.58. Obviously concern for superimposed bacterial infection. Patient is empirically covered on antibiotics. Currently is afebrile. Vitals are stable at this time. The patient is seen today 04/29/2023 in follow-up on the regular medical floor. She is currently sitting up in a chair at the bedside. Awake and alert in no acute distress. She is breathing easier today compared to yesterday. She is still on 6 L high flow nasal cannula. She has normal saline at 100. Chest x- ray shows near complete opacification of the right lung. Her family is at the bedside. She did receive chemotherapy 4 treatments. She is scheduled for an outpatient PET scan. The plan is for initiation of immunotherapy. She had her biopsy and testing done at [facility]. She follows with Dr. Mckeon in [place] for her oncology needs. White count 26.1. Hemoglobin 9.9. Platelets 620. Sodium 131. Potassium 3.9. Bicarb 18. BUN 10. Creatinine 0.48. She remains on bronchodilators, Decadron. Antibiotics in form of ceftriaxone. Anticoagulated with Xarelto. Objective - Vital Signs Vital signs: Vital Signs Temp 99.1 F 04/29/23 07:19 Pulse 94 04/29/23 07:19 Resp 18 04/29/23 09:00 BP 109/70 04/29/23 07:19 Pulse Ox 94 L 04/29/23 07:19 FiO2 Intake & Output 04/28/23 04/29/23 04/29/23 18:59 06:59 18:59 Output Total 300 Balance -300 Output: Urine 300 Other: Voiding Method External Catheter External Catheter External Catheter # Voids 2 # Bowel Movements 1 - Exam GENERAL EXAM: Alert, 82-year-old female , currently up in a chair, on 6 L high flow nasal cannula, some mild respiratory distress. HEAD: Normocephalic and atraumatic EYES: Normal reaction of pupils, equal size. NOSE: Clear with pink turbinates. THROAT: No erythema or exudates. NECK: No masses, no JVD. CHEST: No chest wall deformity. LUNGS: Equal air entry with diminished bibasilar lung sounds and scattered crackles. No wheezes or rhonchi. No accessory muscle use. CVS: S1 and S2 normal with no audible murmur, regular rhythm. No extra heart sounds ABDOMEN: No hepatosplenomegaly, active bowel sounds, no guarding or rigidity. SPINE: No scoliosis or deformity SKIN: No rashes CENTRAL NERVOUS SYSTEM: No focal deficits, tone is normal in all 4 extremities. EXTREMITIES: There is no peripheral edema, clubbing, or cyanosis. Peripheral pulses are intact. - Labs CBC & Chem 7: 04/29/23 10:11 04/29/23 10:11 Labs: Abnormal Lab Results - Last 24 Hours (Table) 04/29/23 04/29/23 Range/Units 10:11 10:11 WBC 26.1 H (3.8-10.6) k/uL RBC 2.93 L (3.80-5.40) m/uL Hgb 9.9 L (11.4-16.0) gm/dL Hct 30.9 L (34.0-46.0) % MCV 105.4 H (80.0-100.0) fL RDW 16.6 H (11.5-15.5) % Plt Count 620 H (150-450) k/uL Neutrophils # 22.5 H (1.3-7.7) k/uL Sodium 131 L (137-145) mmol/L Carbon Dioxide 18 L (22-30) mmol/L Creatinine 0.48 L (0.52-1.04) mg/dL Glucose 138 H (74-99) mg/dL Calcium 7.6 L (8.4-10.2) mg/dL Microbiology - Last 24 Hours (Table) 04/27/23 20:53 Blood Culture - Preliminary Blood 04/27/23 20:47 Blood Culture - Preliminary Blood Assessment and Plan Assessment: Acute hypoxemic respiratory failure, currently on 5 L/m nasal cannula, likely multifactorial, secondary to acute COVID-19 infection/pneumonia, possible superimposed bacterial pneumonia, and primary lung cancer. Chest CT with contrast which showed volume loss of the right lung with collapse of right upper and middle lobes. There is minimal aeration of the right lower lobe. This could be mucous plugging and consolidation as reported by radiologist or the patient's known pulmonary malignancy. There is also partial collapse of the left lower lobe. There is paratracheal and subcarinal adenopathy. Leukocytosis, secondary to above History of lung cancer diagnosed at [facility], followed with Dr. Mckeon in [place], received chemotherapy, plan is for outpatient PET scan and possible immunotherapy Metabolic anion gap acidosis, likely related to COVID 19 pneumonia and sepsis Acute metabolic encephalopathy, secondary to above Hypothyroidism History of hyperlipidemia Remote history of tobacco dependence Plan: The patient was seen and evaluated Chest x-ray, labs and medications reviewed Currently on 6 L high flow nasal cannula Titrate down the FiO2 as tolerated Continue bronchodilators, Decadron May require home oxygen Plan is for subacute rehab possibly in [place] I have personally seen and examined the patient, performed the documentation and the assessment and plan as written. Number of minutes spent on the visit: 10.
--- NOTE | 2023-04-29 15:24 | P.PN ---
Subjective Progress Note Date: 04/29/23 Principal diagnosis: reason for follow-up is COVID-19 and pneumonia Patient is a 82-year-old female with a past medical history significant for lung cancer CVA TIA reflux pneumonia patient was brought into the hospital for evaluation generalized weakness apparently the patient did tested positive at home about a week ago for COVID-19 infection and the patient has been getting sick over the last few days, CT of the chest with consolidation and mucous plugging throughout the right upper and middle lobe concerning for possible pneumonia. On today's evaluation that is 04/29/2023 patient did have a low-grade fever of 99.1 degrees for hide this morning the patient is afebrile since then patient mention breathing more comfortably currently on 6 L nasal cannula oxygen denies any chest pain no worsening cough or sputum production no abdominal pain and no diarrhea. Patient did have white count of 26.1, creatinine 0.43, procalcitonin is 5.58 blood cultures so far negative sputum not collected Objective - Vital Signs Vital signs: Vital Signs Temp 97.8 F 04/29/23 13:57 Pulse 93 04/29/23 13:57 Resp 18 04/29/23 13:57 BP 101/66 04/29/23 13:57 Pulse Ox 96 04/29/23 13:57 FiO2 Intake & Output 04/28/23 04/29/23 04/29/23 18:59 06:59 18:59 Output Total 300 Balance -300 Output: Urine 300 Other: Voiding Method External Catheter External Catheter External Catheter # Voids 2 # Bowel Movements 1 - Exam GENERAL DESCRIPTION: An elderly female lying in bed in no distress RESPIRATORY SYSTEM: Unlabored breathing , decreased breath sounds at bases HEART: S1 S2 regular rate and rhythm , ABDOMEN: Soft , no tenderness EXTREMITIES: No edema feet - Labs CBC & Chem 7: 04/29/23 10:11 04/29/23 10:11 Labs: Abnormal Lab Results - Last 24 Hours (Table) 04/29/23 04/29/23 Range/Units 10:11 10:11 WBC 26.1 H (3.8-10.6) k/uL RBC 2.93 L (3.80-5.40) m/uL Hgb 9.9 L (11.4-16.0) gm/dL Hct 30.9 L (34.0-46.0) % MCV 105.4 H (80.0-100.0) fL RDW 16.6 H (11.5-15.5) % Plt Count 620 H (150-450) k/uL Neutrophils # 22.5 H (1.3-7.7) k/uL Sodium 131 L (137-145) mmol/L Carbon Dioxide 18 L (22-30) mmol/L Creatinine 0.48 L (0.52-1.04) mg/dL Glucose 138 H (74-99) mg/dL Calcium 7.6 L (8.4-10.2) mg/dL Microbiology - Last 24 Hours (Table) 04/27/23 20:53 Blood Culture - Preliminary Blood 04/27/23 20:47 Blood Culture - Preliminary Blood Assessment and Plan (1) Allergy to sulfa drugs Current Visit: Yes Status: Acute Code(s): Z88.2 - ALLERGY STATUS TO SULFONAMIDES SNOMED Code(s): 65644340 (2) COVID-19 Current Visit: Yes Status: Acute Priority: High Code(s): U07.1 - COVID-19 SNOMED Code(s): 118825046 (3) Pneumonia Current Visit: Yes Status: Acute Priority: High Code(s): J18.9 - PNEUMONIA, UNSPECIFIED ORGANISM SNOMED Code(s): 011719068 Plan: 1patient presented to the hospital with increasing weakness and this patient tested positive for COVID-19 about a week ago now presenting to the hospital with increasing weakness cough patient did have elevated white count and CT of the chest that shows consolidation and mucous plugging throughout the right upper and lower lobe concerning for secondary bacterial pneumonia 2patient did have elevated CRP and a procalcitonin, sputum pending collection 3patient to continue the patient on Rocephin and Zithromax while waiting for the culture to finalize Dictation was produced using [employer] dictation software. please excuse any grammatical, word or spelling errors. Time with Patient: Less than 30
--- NOTE | 2023-04-29 15:25 | P.CONS ---
History of Present Illness - Reason for Consult Consult date: 04/28/23 COVID, pneumonia, elevated WBC Requesting physician: Peggy Arshad - Chief Complaint Generalized weakness x few days - History of Present Illness Patient is a 82-year-old female with a past medical history significant for lung cancer CVA TIA reflux pneumonia patient was brought into the hospital for evaluation generalized weakness apparently the patient did t ested positive at home about a week ago for COVID-19 infection and the patient has been getting sick over the last few days patient has been complaining of mostly generalized weakness and fatigue no energy patient did have a cough which is mild in intensity with occasional clear sputum no hemoptysis no pleuritic chest pain no significant shortness of breath did have decreased oral intake and decreased appetite patient denies having any nausea or vomiting no abdominal pain or any diarrhea with the symptoms the patient was evaluated on presentation to the hospital the patient was afebrile and no fever has been recorded subsequently patient was noted to be hypoxic with O2 sats of 93% on room air patient did have a white count of 25.9 creatinine 0.6 enzymes are elevated she did have a CRP of 21.6 a procalcitonin of 5.58 urine was negative tested positive for COVID patient did have a chest x-ray large pleural effusion collection with right lower lobe consolidation CT of the chest consolidation and mucous plugging throughout the right upper and middle lobes this could represent malignancy infection or both patient was started on Rocephin and Zithromax in addition to the dexamethasone infectious disease was consulted for further management of antibiotic therapy Review of Systems Positive point and negatives has been mentioned in the HPI, complete review of systems was performed and all other systems are negative Past Medical History Past Medical History: CVA/TIA, GERD/Reflux, Pneumonia, Thyroid Disorder Additional Past Medical History / Comment(s): Lung CA, History of Any Multi-Drug Resistant Organisms: None Reported Past Surgical History: No Surgical Hx Reported Additional Past Surgical History / Comment(s): pt poor historian Past Psychological History: No Psychological Hx Reported Smoking Status: Former smoker Past Alcohol Use History: None Reported Past Drug Use History: None Reported Medications and Allergies Home Medications Medication Instructions Recorded Confirmed Type Acetaminophen Tab [Tylenol] 750 mg PO Q4H PRN MDD 10 TABLETS 04/27/23 04/27/23 History Albuterol Sulfate [Albuterol 1 puff PO RT-Q4H PRN 04/27/23 04/27/23 History Sulfate Hfa] Ascorbic Acid [Vitamin C] 500 mg PO HS 04/27/23 04/27/23 History Aspirin EC [Ecotrin Low Dose] 81 mg PO DAILY 04/27/23 04/27/23 History Benzonatate [Tessalon Perle] 200 mg PO TID PRN 04/27/23 04/27/23 History Calcium Carbonate [Calcium] 600 mg PO HS 04/27/23 04/27/23 History Cholecalciferol [Vitamin D3 (25 25 mcg PO HS 04/27/23 04/27/23 History Mcg = 1000 Iu)] Fluticasone Nasal Usk [Flonase 1 spray EA NOSTRIL HS 04/27/23 04/27/23 History Nasal Usk] L.acidoph,Paracasei, B.lactis 2 cap PO DAILY 04/27/23 04/27/23 History [Probiotic] Levothyroxine Sodium [Synthroid] 75 mcg PO SUMOWETHFR 04/27/23 04/27/23 History Levothyroxine Sodium [Synthroid] 88 mcg PO TUSA 04/27/23 04/27/23 History Loratadine [Claritin] 10 mg PO DAILY 04/27/23 04/27/23 History Megestrol Acetate 625 mg PO DAILY 04/27/23 04/27/23 History Omeprazole [PriLOSEC] 20 mg PO DAILY 04/27/23 04/27/23 History Prochlorperazine [Compazine] 10 mg PO Q6H PRN 04/27/23 04/27/23 History Rivaroxaban [Xarelto] 20 mg PO DAILY 04/27/23 04/27/23 History Sertraline [Zoloft] 50 mg PO DAILY 04/27/23 04/27/23 History Simvastatin [Zocor] 20 mg PO HS 04/27/23 04/27/23 History ALPRAZolam [Xanax] 0.5 mg PO BID PRN 3 Days #6 tab 05/06/23 Rx Amoxic-Pot Clav 875-125Mg 1 each PO Q12HR 7 Days #14 tab 05/06/23 Rx [Augmentin 875-125] guaiFENesin SYRUP 100MG/5ML 200 mg PO Q6HR PRN 5 Days #200 ml 05/06/23 Rx [Robitussin] traMADol HCl [Ultram] 50 mg PO Q6H PRN 3 Days #12 tab 05/06/23 Rx Allergies Allergy/AdvReac Type Severity Reaction Status Date / Time sulfamethoxazole Allergy Rash/Hives Verified 04/27/23 17:56 [From Bactrim] trimethoprim [From Bactrim] Allergy Rash/Hives Verified 04/27/23 17:56 Physical Exam Vitals: Vital Signs Temp Pulse Pulse Resp BP BP Pulse Ox 04/28/23 10:00 96 23 04/28/23 09:54 90 L 04/28/23 08:20 90 L 04/28/23 08:00 98.8 F 96 23 114/88 93 L 04/28/23 04:00 32 H 04/28/23 00:30 46 H 04/28/23 00:00 98.6 F 108 H 36 H 138/68 92 L 04/27/23 21:00 105 H 22 128/78 96 04/27/23 18:04 99.2 F 106 H 18 110/73 96 04/27/23 16:38 112 H 18 126/80 96 04/27/23 15:22 22 04/27/23 15:10 91 L 04/27/23 15:05 98.4 F 98 18 113/75 93 L Intake and Output 04/27/23 04/28/23 04/28/23 22:59 06:59 14:59 Other: Voiding Method External Catheter Weight 61.235 kg 61.235 kg GENERAL DESCRIPTION: Elderly female lying in bed, no distress. No tachypnea or accessory muscle of respiration use. HEENT: Shows Pallor , no scleral icterus. Oral mucous membrane is dry. NECK: Trachea central, no thyromegaly. LUNGS: Unlabored breathing. C coarse breath sounds bilaterally no wheeze or crackle. HEART: S1, S2, regular rate and rhythm. No loud murmur ABDOMEN: Soft, no tenderness , guarding or rigidity, no organomegaly EXTREMITIES: No edema of feet. SKIN: No rash, no masses palpable. NEUROLOGICAL: The patient is awake, alert, oriented x3, mood and affect normal. Results CBC & Chem 7: 05/05/23 04:23 05/05/23 04:23 Labs: Abnormal Lab Results - Last 24 Hours (Table) 04/27/23 04/27/23 04/27/23 Range/Units 15:25 15:25 15:25 WBC 25.9 H (3.8-10.6) k/uL RBC 3.17 L (3.80-5.40) m/uL Hgb 10.8 L (11.4-16.0) gm/dL Hct 32.5 L (34.0-46.0) % MCV 102.5 H (80.0-100.0) fL RDW 16.6 H (11.5-15.5) % Plt Count 452 H (150-450) k/uL Neutrophils # 23.1 H (1.3-7.7) k/uL PT 13.6 H (10.0-12.5) sec INR 1.3 H (<1.2) APTT 32.0 H (22.0-30.0) sec Sodium 131 L (135-145) mmol/L Carbon Dioxide 19.7 L (21.6-31.8) mmol/L Anion Gap 15.30 H (4.00-12.00) mmol/L Calcium 8.4 L (8.7-10.3) mg/dL Ferritin 771.0 H (10.0-291.0) ng/mL AST 70 H (13-35) U/L ALT 165 H (8-44) U/L Alkaline Phosphatase 191 H (41-126) U/L Lactate Dehydrogenase 257 H (120-246) U/L C-Reactive Protein 21.60 H (0.00-0.80) mg/dL Total Protein 5.8 L (6.2-8.2) g/dL Albumin 3.2 L (3.8-4.9) g/dL Procalcitonin (0.02-0.09) ng/mL Urine Protein (Negative) SARS-CoV-2 (PCR) (Not Detectd) 04/27/23 04/27/23 04/27/23 Range/Units 15:25 15:25 15:25 WBC (3.8-10.6) k/uL RBC (3.80-5.40) m/uL Hgb (11.4-16.0) gm/dL Hct (34.0-46.0) % MCV (80.0-100.0) fL RDW (11.5-15.5) % Plt Count (150-450) k/uL Neutrophils # (1.3-7.7) k/uL PT (10.0-12.5) sec INR (<1.2) APTT (22.0-30.0) sec Sodium (135-145) mmol/L Carbon Dioxide (21.6-31.8) mmol/L Anion Gap (4.00-12.00) mmol/L Calcium (8.7-10.3) mg/dL Ferritin (10.0-291.0) ng/mL AST (13-35) U/L ALT (8-44) U/L Alkaline Phosphatase (41-126) U/L Lactate Dehydrogenase (120-246) U/L C-Reactive Protein (0.00-0.80) mg/dL Total Protein (6.2-8.2) g/dL Albumin (3.8-4.9) g/dL Procalcitonin 5.58 H (0.02-0.09) ng/mL Urine Protein Trace H (Negative) SARS-CoV-2 (PCR) Detected A (Not Detectd) Assessment and Plan (1) Leukocytosis Status: Acute Code(s): D72.829 - ELEVATED WHITE BLOOD CELL COUNT, UNSPECIFIED SNOMED Code(s): 609458475 (2) Allergy to sulfa drugs Status: Acute Code(s): Z88.2 - ALLERGY STATUS TO SULFONAMIDES SNOMED Code(s): 25625449 (3) COVID-19 Status: Acute Priority: High Code(s): U07.1 - COVID-19 SNOMED Code(s): 863839748 (4) Pneumonia Status: Acute Priority: High Code(s): J18.9 - PNEUMONIA, UNSPECIFIED ORGANISM SNOMED Code(s): 348185919 Plan: 1patient presented to the hospital with increasing weakness and this patient tested positive for COVID-19 about a week ago now presenting to the hospital with increasing weakness cough patient did have elevated white count and CT of the chest that shows consolidation and mucous plugging throughout the right upper and lower lobe concerning for secondary bacterial pneumonia 2we will try to obtain sputum for Gram stain and culture check a CRP and a procalcitonin 3continue the patient on Rocephin and Zithromax We will follow on clinical condition and cultures to further adjust medication if needed Thank you for this consultation we will follow the patient along with you Time with Patient: Greater than 30
[2023-04-29] MEDS: traMADol 50 MG TAB PO PRN (15:37)
[2023-04-29] MEDS: ALBUTEROL HFA INHALER INHALATION PRN ×2 (16:28→19:40)
[2023-04-29] MEDS: ASCORBIC ACID 500 MG TAB PO SCH (19:53)
[2023-04-29] MEDS: ATORVASTATIN 10 MG TAB PO SCH (19:54)
[2023-04-30] MEDS: SODIUM CHLORIDE 0.9% 1,000 ML IV SCH ×2 (00:55→18:27)
[2023-04-30] MEDS: guaiFENesin SYRUP 100MG/5ML 200 MG/10 ML CUP PO PRN (01:00)
[2023-04-30] MEDS: ALPRAZolam 0.5 MG TAB PO PRN ×2 (01:02→08:20)
--- NOTE | 2023-04-30 05:26 | P.PN ---
Subjective Progress Note Date: 04/29/23 History of present illness; patient is a 82-year-old lady with past medical significant for lung cancer brought to the ER for generalized weakness. Patient stated that she has not been feeling herself in the last few days. Patient has been complaining of generalized weakness and fatigue. Patient did test positive for COVID-19 one week back. Patient has been complaining of cough and shortness of breath. Cough is productive. Denies any chest pain or palpitation. There is orthopnea or pnd. No complete of fever or chills at home. Patient has been complaining of decreased appetite. Because of the symptoms, patient came to the ER Initial lab work done in the ER showed WBC 25.9, hemoglobin 10.8, platelet count 452, sodium 131, potassium 4.1, BUN 14.7, creatinine 0.6, AST 70, ALT 165, CRP 21.6 UA negative for infection Influenza A not detected Influenza B not detected RSV not detected COVID-19 detected Chest x-ray done in the ER showed large pleural fluid election with right lower lobe consolidation CT chest done showed consolidation and mucous plugging throughout the right upper and middle lobes. Mucous plugging and collapse of the right lower lobe Patient admitted to internal medicine service 04/29/2023 Patient is seen in follow up today being followed by pulmonary and infectious disease. Patient with recent covid 19 and concerns for pneumonia and with significant hx of lung Ca. Patient is afebrile and continued on 6L and recommend weaning FI02 as tolerated. Patient with overall weakness and being evaluated by PT/OT with possible ecf being planned. Patient needs encouragement with meals and increased activity as tolerated. IV abx in the form of ceftriaxone and zithromax to continue. Review of systems: Constitutional: No reports of fatigue, fever, or chills Cardiovascular: No reports of chest pain or palpitations Respiratory: No reports of worsening shortness of breath , reports cough GI: No reports of nausea, vomiting, or diarrhea : No reports of dysuria or retention Neurovascular: reports of generalaized weakness All medications have been reviewed PHYSICAL EXAMINATION: GENERAL: The patient is alert and oriented x3, chronically ill-looking, thin bu ilt HEENT: Pupils are round and equally reacting to light. EOMI. No scleral icterus. No conjunctival pallor. Normocephalic, atraumatic. No pharyngeal erythema. No thyromegaly. CARDIOVASCULAR: S1 and S2 present. No murmurs, rubs, or gallops. PULMONARY: Diminished breath sounds at the bases bilaterally., No crackles audible ABDOMEN: Soft, nontender, nondistended, normoactive bowel sounds. No palpable organomegaly. MUSCULOSKELETAL: No joint swelling or deformity. EXTREMITIES: No cyanosis, clubbing, or pedal edema. NEUROLOGICAL: Gross neurological examination did not reveal any focal deficits. diffusely weak SKIN: No rashes. Assessment: Acute hypoxemic respiratory failure, multifactorial due to covid 19, bacterial pneumonia, as well as Lung Ca COVID-19 pneumonia superimposed bacterial pneumonia History of lung cancer Leukocytosis Acute metabolic encephalopathy hypothyroidism History of hyperlipidemia moderate protein calorie malnutrition with a bmi of 19.4 Plan: Continue IV abx with ID and pulmonary following. Patient is also continued on dexamethasone wean FI02 as tolerated, currently on 6L via NC Encourage oral intake and increased activity as tolerated PT to evaluate and will likely need ecf as patient is significantly weak Oncology consulted as patient was scheduled for outpatient PET and immunotherapy Overall prognosis is guarded The impression and plan of care has been dictated by Peggy Arshad, Nurse Practitioner as directed. MD Kaylee I have performed a history and examination and MDM of this patient, discussed the same with the dictator, and agree with the dictator's assessment and plan as written ,documented as a scribe. Based on total visit time, I have performed more than 50% of the visit. Objective - Vital Signs Vital signs: Vital Signs Temp 99.1 F 04/29/23 07:19 Pulse 94 04/29/23 07:19 Resp 18 04/29/23 07:19 BP 109/70 04/29/23 07:19 Pulse Ox 94 L 04/29/23 07:19 FiO2 Intake & Output 04/28/23 04/29/23 04/29/23 18:59 06:59 18:59 Output Total 300 Balance -300 Output: Urine 300 Other: Voiding Method External Catheter External Catheter # Voids 2 # Bowel Movements 1 - Labs CBC & Chem 7: 04/29/23 10:11 04/29/23 10:11 Labs: Abnormal Lab Results - Last 24 Hours (Table) 04/28/23 04/28/23 Range/Units 11:06 11:06 WBC 22.1 H (3.8-10.6) k/uL RBC 2.92 L (3.80-5.40) m/uL Hgb 9.9 L (11.4-16.0) gm/dL Hct 30.7 L (34.0-46.0) % MCV 105.3 H (80.0-100.0) fL RDW 16.6 H (11.5-15.5) % Plt Count 456 H (150-450) k/uL Neutrophils # 20.0 H (1.3-7.7) k/uL Sodium 130 L (137-145) mmol/L Carbon Dioxide 17 L (22-30) mmol/L Creatinine 0.43 L (0.52-1.04) mg/dL Glucose 108 H (74-99) mg/dL Calcium 7.7 L (8.4-10.2) mg/dL Microbiology - Last 24 Hours (Table) 04/27/23 20:53 Blood Culture - Preliminary Blood 04/27/23 20:47 Blood Culture - Preliminary Blood
[2023-04-30] MEDS: LEVOTHYROXINE 75 MCG TAB PO SCH (06:02)
[2023-04-30] MEDS: MEGESTROL 400 MG/10 ML CUP PO SCH (08:20)
[2023-04-30] MEDS: RIVAROXABAN 20 MG TAB PO SCH (08:21)
[2023-04-30] MEDS: LORATADINE 10 MG TAB PO SCH (08:21)
[2023-04-30] MEDS: DEXAMETHASONE SOD PHOSPHATE 10 MG/ML 1 ML VIAL IVP SCH (08:21)
[2023-04-30] MEDS: SERTRALINE 50 MG TAB PO SCH (08:21)
[2023-04-30] MEDS: ASPIRIN 81 MG PO SCH (08:21)
[2023-04-30] MEDS: polyethylene glycoL 3350 17 GM POWD.PACK PO SCH (08:26)
[2023-04-30] MEDS: ALBUTEROL HFA INHALER INHALATION PRN ×3 (09:24→16:45)
[2023-04-30 11:09] LABS: HCT 28.8 % (37.2-46.3); HGB 9.2 g/dL (12.0-15.0); MCH 33.1 pg (27.0-32.0); MCHC 31.9 g/dL (32.0-37.0); MCV 103.6 FL (80.0-97.0); Mean Platelet Volume 9.2 FL (9.5-12.2); NRBC Per 100 WBC 0 X 10*3/uL (0.00-0.01); Platelet Count 584 X 10*3/uL (140-440); RBC 2.78 X 10*6/uL (4.10-5.20); WBC 26.71 X 10*3/uL (4.50-10.00)
[2023-04-30 11:53] LABS: Basophils # (A) 0.09 X 10*3/uL (0.00-0.10); Basophils % (A) 0.3 %; Eosinophils # (A) 0.04 X 10*3/uL (0.04-0.35); Eosinophils % (A) 0.1 %; Lymphocytes # (A) 4.02 X 10*3/uL (0.90-5.00); Lymphocytes % (A) 15.1 %; Monocytes # (A) 1.02 X 10*3/uL (0.20-1.00); Monocytes % (A) 3.8 %; Neutrophils # (A) 20.67 X 10*3/uL (1.80-7.70); Neutrophils % (A) 77.4 %; RBC Morphology Normal (Normal)
[2023-04-30 12:52] LABS: Blood Urea Nitrogen 9.7 mg/dL (9.0-27.0); Calcium 7.8 mg/dL (8.7-10.3); Carbon Dioxide 15.8 mmol/L (21.6-31.8); Chloride 102 mmol/L (96-109); Glucose 100 mg/dL (70-110); Potassium 4.7 mmol/L (3.5-5.5); Sodium 131 mmol/L (135-145)
--- NOTE | 2023-04-30 13:45 | P.PN ---
Subjective Progress Note Date: 04/30/23 I am seeing this patient in new consultation today 04/28/2023 after she presented yesterday to the emergency room with acute shortness of breath. She did test positive for COVID-19. Apparently, her had been positive for COVID-19 earlier in the week. Her PCP is Dr. Sophia Law out of [place], [place]. Patient is an 82-year-old female with past medical history significant for lung cancer, patient states she is undergoing systemic treatment with chemotherapy. She is unsure of who here oncologist is. She states her last round of chemotherapy was last week. She does not follow at this facility. She is a very poor historian, and there are no records to review. I'm uncertain if this is the patient's first COVID-19 infection or if she's been previously vaccinated. Patient is currently sitting up in bed, on 5 L/m nasal cannula. She does not normally use home O2. She is very fatigued. She is tachypneic breathing in the 30s to 40s. Patient reports ongoing shortness of breath for the last couple weeks. She's had an associated congested nonproductive cough. Admits to subjective fevers. Denies any hemoptysis. I did order a chest CT with contrast which showed volume loss of the right lung with collapse of right upper and middle lobes. This could be mucous plugging and consolidation as reported by radiologist or the patient's known pulmonary malignancy. There is also partial collapse of the left lower lobe. There is paratracheal and subcarinal adenopathy. CBC on arrival: WBC count 25.9, hemoglobin 10.8, hematocrit 32.5, platelets 452. BMP on arrival: Sodium 131, potassium 4.1, chloride 96, serum bicarb 19, BUN 14, creatinine 0.6, glucose 109. LFTs mildly elevated. UA not concerning for UTI. Procalcitonin elevated at 5.58. Obviously concern for superimposed bacterial infection. Patient is empirically covered on antibiotics. Currently is afebrile. Vitals are stable at this time. The patient is seen today 04/29/2023 in follow-up on the regular medical floor. She is currently sitting up in a chair at the bedside. Awake and alert in no acute distress. She is breathing easier today compared to yesterday. She is still on 6 L high flow nasal cannula. She has normal saline at 100. Chest x- ray shows near complete opacification of the right lung. Her family is at the bedside. She did receive chemotherapy 4 treatments. She is scheduled for an outpatient PET scan. The plan is for initiation of immunotherapy. She had her biopsy and testing done at [facility]. She follows with Dr. Mckeon in [place] for her oncology needs. White count 26.1. Hemoglobin 9.9. Platelets 620. Sodium 131. Potassium 3.9. Bicarb 18. BUN 10. Creatinine 0.48. She remains on bronchodilators, Decadron. Antibiotics in form of ceftriaxone. Anticoagulated with Xarelto. The patient is seen today 04/30/2023 in follow-up on the regular medical floor. She is currently sitting up in a chair. Awake and alert in no acute distress. She is requiring 6 L high flow nasal cannula to maintain O2 saturations in the 90s. She has normal saline at 100 ML's per hour. She is continued on ceftriaxone. Her pro-calcitonin was 5.58. Blood culture reveals no growth. White count 26.7. Hemogram 9.2. Platelets 584. Sodium 131. Potassium 4.7. Bicarb 16. BUN 10. Creatinine 0.5. Glucose 100. She remains on vitamin supplements and Decadron. Anticoagulated with Xarelto. Objective - Vital Signs Vital signs: Vital Signs Temp 97.9 F 04/30/23 07:13 Pulse 94 04/30/23 07:13 Resp 19 04/30/23 07:13 BP 150/97 04/30/23 07:13 Pulse Ox 96 04/30/23 07:13 FiO2 Intake & Output 04/29/23 04/30/23 04/30/23 18:59 06:59 18:59 Output Total 1200 Balance -1200 Output: Urine 1200 Other: Voiding Method External Catheter External Catheter External Catheter - Exam GENERAL EXAM: Alert, pleasant 82-year-old female, up in a chair, on 6 L nasal cannula, no acute respiratory distress. HEAD: Normocephalic and atraumatic EYES: Normal reaction of pupils, equal size. NOSE: Clear with pink turbinates. THROAT: No erythema or exudates. NECK: No masses, no JVD. CHEST: No chest wall deformity. LUNGS: Equal air entry with diminished bibasilar lung sounds and scattered crackles. No wheezes or rhonchi. No accessory muscle use. CVS: S1 and S2 normal with no audible murmur, regular rhythm. No extra heart sounds ABDOMEN: No hepatosplenomegaly, active bowel sounds, no guarding or rigidity. SPINE: No scoliosis or deformity SKIN: No rashes CENTRAL NERVOUS SYSTEM: No focal deficits, tone is normal in all 4 extremities. EXTREMITIES: There is no peripheral edema, clubbing, or cyanosis. Peripheral pulses are intact. - Labs CBC & Chem 7: 04/30/23 06:28 04/30/23 06:28 Labs: Abnormal Lab Results - Last 24 Hours (Table) 04/30/23 04/30/23 Range/Units 06:28 06:28 WBC 26.71 H (4.50-10.00) X 10*3/uL RBC 2.78 L (4.10-5.20) X 10*6/uL Hgb 9.2 L (12.0-15.0) g/dL Hct 28.8 L (37.2-46.3) % MCV 103.6 H (80.0-97.0) FL MCH 33.1 H (27.0-32.0) pg MCHC 31.9 L (32.0-37.0) g/dL RDW 17.0 H (11.5-14.5) % Plt Count 584 H (140-440) X 10*3/uL MPV 9.2 L (9.5-12.2) FL Immature Gran # 0.87 H (0.00-0.04) X 10*3/uL Neutrophils # 20.67 H (1.80-7.70) X 10*3/uL Monocytes # 1.02 H (0.20-1.00) X 10*3/uL Sodium 131 L (135-145) mmol/L Carbon Dioxide 15.8 L (21.6-31.8) mmol/L Anion Gap 13.20 H (4.00-12.00) mmol/L Creatinine 0.5 L (0.6-1.5) mg/dL Calcium 7.8 L (8.7-10.3) mg/dL Microbiology - Last 24 Hours (Table) 04/27/23 20:53 Blood Culture - Preliminary Blood 04/27/23 20:47 Blood Culture - Preliminary Blood Assessment and Plan Assessment: Acute hypoxemic respiratory failure, currently on 6 L/m nasal cannula, likely multifactorial, secondary to acute COVID-19 infection/pneumonia, possible superimposed bacterial pneumonia, and primary lung cancer. Chest CT with contrast which showed volume loss of the right lung with collapse of right upper and middle lobes. There is minimal aeration of the right lower lobe. This could be mucous plugging and consolidation as reported by radiologist or the patient's known pulmonary malignancy. There is also partial collapse of the left lower lobe. There is paratracheal and subcarinal adenopathy. Leukocytosis, secondary to above History of lung cancer diagnosed at [facility] [place], followed with Dr. Mckeon in [place], received chemotherapy, plan is for outpatient PET scan and possible immunotherapy COVID 19 infection and possible pneumonia Acute metabolic encephalopathy, secondary to above Hypothyroidism History of hyperlipidemia Remote history of tobacco dependence Plan: The patient was seen and evaluated Labs and medications reviewed Currently on 6 L nasal cannula Titrate down the FiO2 as tolerated Continue bronchodilators, Decadron Xarelto for anticoagulation Vitamin supplements May require home oxygen Plan is for subacute rehab post discharge I have personally seen and examined the patient, performed the documentation and the assessment and plan as written. Number of minutes spent on the visit: 10.
--- NOTE | 2023-04-30 15:06 | P.PN ---
Subjective Progress Note Date: 04/30/23 Principal diagnosis: reason for follow-up is COVID-19 and pneumonia Patient is a 82-year-old female with a past medical history significant for lung cancer CVA TIA reflux pneumonia patient was brought into the hospital for evaluation generalized weakness apparently the patient did tested positive at home about a week ago for COVID-19 infection and the patient has been getting sick over the last few days, CT of the chest with consolidation and mucous plugging throughout the right upper and middle lobe concerning for possible pneumonia. On today's evaluation that is 04/30/2023 patient is afebrile this morning, the patient breathing more comfortably currently on 6 L nasal cannula oxygen, the patient denies any chest pain no worsening cough or sputum production no abdominal pain and no diarrhea. Patient did have white count of 26.71, creatinine is 0.5, procalcitonin is 5.58 blood cultures so far negative sputum not collected Objective - Vital Signs Vital signs: Vital Signs Temp 97.9 F 04/30/23 07:13 Pulse 94 04/30/23 07:13 Resp 19 04/30/23 07:13 BP 150/97 04/30/23 07:13 Pulse Ox 96 04/30/23 07:13 FiO2 Intake & Output 04/29/23 04/30/23 04/30/23 18:59 06:59 18:59 Output Total 1200 Balance -1200 Output: Urine 1200 Other: Voiding Method External Catheter External Catheter External Catheter - Exam GENERAL DESCRIPTION: An elderly female lying in bed in no distress RESPIRATORY SYSTEM: Unlabored breathing , decreased breath sounds at bases HEART: S1 S2 regular rate and rhythm , ABDOMEN: Soft , no tenderness EXTREMITIES: No edema feet - Labs CBC & Chem 7: 04/30/23 06:28 04/30/23 06:28 Labs: Abnormal Lab Results - Last 24 Hours (Table) 04/30/23 04/30/23 Range/Units 06:28 06:28 WBC 26.71 H (4.50-10.00) X 10*3/uL RBC 2.78 L (4.10-5.20) X 10*6/uL Hgb 9.2 L (12.0-15.0) g/dL Hct 28.8 L (37.2-46.3) % MCV 103.6 H (80.0-97.0) FL MCH 33.1 H (27.0-32.0) pg MCHC 31.9 L (32.0-37.0) g/dL RDW 17.0 H (11.5-14.5) % Plt Count 584 H (140-440) X 10*3/uL MPV 9.2 L (9.5-12.2) FL Immature Gran # 0.87 H (0.00-0.04) X 10*3/uL Neutrophils # 20.67 H (1.80-7.70) X 10*3/uL Monocytes # 1.02 H (0.20-1.00) X 10*3/uL Sodium 131 L (135-145) mmol/L Carbon Dioxide 15.8 L (21.6-31.8) mmol/L Anion Gap 13.20 H (4.00-12.00) mmol/L Creatinine 0.5 L (0.6-1.5) mg/dL Calcium 7.8 L (8.7-10.3) mg/dL Microbiology - Last 24 Hours (Table) 04/27/23 20:53 Blood Culture - Preliminary Blood 04/27/23 20:47 Blood Culture - Preliminary Blood Assessment and Plan (1) Leukocytosis Current Visit: Yes Status: Acute Code(s): D72.829 - ELEVATED WHITE BLOOD CELL COUNT, UNSPECIFIED SNOMED Code(s): 945850009 (2) Allergy to sulfa drugs Current Visit: Yes Status: Acute Code(s): Z88.2 - ALLERGY STATUS TO SULFONAMIDES SNOMED Code(s): 73829060 (3) COVID-19 Current Visit: Yes Status: Acute Priority: High Code(s): U07.1 - COVID-19 SNOMED Code(s): 182060177 (4) Pneumonia Current Visit: Yes Status: Acute Priority: High Code(s): J18.9 - PNEUMONIA, UNSPECIFIED ORGANISM SNOMED Code(s): 361056623 Plan: 1patient presented to the hospital with increasing weakness and this patient tested positive for COVID-19 about a week ago now presenting to the hospital with increasing weakness cough patient did have elevated white count and CT of the chest that shows consolidation and mucous plugging throughout the right upper and lower lobe concerning for secondary bacterial pneumonia 2patient did have elevated CRP and a procalcitonin, nursing staff has been advised to obtain a sputum for culture 3white count still elevated possible steroid related we will continue with Rocephin and Zithromax and adjust antibiotic further on the basis of clinical response and culture Thank you for this consultation we will follow the patient along with you Time with Patient: Less than 30
[2023-04-30] MEDS: ASCORBIC ACID 500 MG TAB PO SCH (19:44)
[2023-04-30] MEDS: ATORVASTATIN 10 MG TAB PO SCH (19:44)
[2023-04-30] MEDS: ACETAMINOPHEN TAB 500 MG TAB PO PRN (22:55)
[2023-05-01] MEDS: LEVOTHYROXINE 75 MCG TAB PO SCH (06:37)
[2023-05-01] MEDS: guaiFENesin SYRUP 100MG/5ML 200 MG/10 ML CUP PO PRN ×2 (06:37→18:00)
[2023-05-01] MEDS: ACETAMINOPHEN TAB 500 MG TAB PO PRN ×3 (06:41→18:28)
[2023-05-01] MEDS: LEVOTHYROXINE 88 MCG TAB PO SCH (06:47)
--- NOTE | 2023-05-01 06:51 | P.PN ---
Subjective Progress Note Date: 04/30/23 History of present illness; patient is a 82-year-old lady with past medical significant for lung cancer brought to the ER for generalized weakness. Patient stated that she has not been feeling herself in the last few days. Patient has been complaining of generalized weakness and fatigue. Patient did test positive for COVID-19 one week back. Patient has been complaining of cough and shortness of breath. Cough is productive. Denies any chest pain or palpitation. There is orthopnea or pnd. No complete of fever or chills at home. Patient has been complaining of decreased appetite. Because of the symptoms, patient came to the ER Initial lab work done in the ER showed WBC 25.9, hemoglobin 10.8, platelet count 452, sodium 131, potassium 4.1, BUN 14.7, creatinine 0.6, AST 70, ALT 165, CRP 21.6 UA negative for infection Influenza A not detected Influenza B not detected RSV not detected COVID-19 detected Chest x-ray done in the ER showed large pleural fluid election with right lower lobe consolidation CT chest done showed consolidation and mucous plugging throughout the right upper and middle lobes. Mucous plugging and collapse of the right lower lobe Patient admitted to internal medicine service 04/29/2023 Patient is seen in follow up today being followed by pulmonary and infectious disease. Patient with recent covid 19 and concerns for pneumonia and with significant hx of lung Ca. Patient is afebrile and continued on 6L and recommend weaning FI02 as tolerated. Patient with overall weakness and being evaluated by PT/OT with possible ecf being planned. Patient needs encouragement with meals and increased activity as tolerated. IV abx in the form of ceftriaxone and zithromax to continue. 04/30/2023 Patient is seen in follow-up this morning continues to be extremely weak maintained on 6 L reporting shortness of breath. Patient is extremely frail and thin built and appears elderly and ill-appearing. Patient is somewhat eating and needs encouragement. Patient also continued on IV antibiotics with infectious disease following as well as pulmonary. Patient is currently afebrile with no reported chest pain or palpitations. Review of systems: Constitutional: No reports of fatigue, fever, or chills Cardiovascular: No reports of chest pain or palpitations Respiratory: No reports of worsening shortness of breath , reports cough GI: No reports of nausea, vomiting, or diarrhea : No reports of dysuria or retention Neurovascular: reports of generalaized weakness All medications have been reviewed PHYSICAL EXAMINATION: GENERAL: The patient is alert and oriented x3, chronically ill-looking, thin built HEENT: Pupils are round and equally reacting to light. EOMI. No scleral icterus. No conjunctival pallor. Normocephalic, atraumatic. No pharyngeal erythema. No thyromegaly. CARDIOVASCULAR: S1 and S2 present. No murmurs, rubs, or gallops. PULMONARY: Diminished breath sounds at the bases bilaterally., No crackles audible ABDOMEN: Soft, nontender, nondistended, normoactive bowel sounds. No palpable organomegaly. MUSCULOSKELETAL: No joint swelling or deformity. EXTREMITIES: No cyanosis, clubbing, or pedal edema. NEUROLOGICAL: Gross neurological examination did not reveal any focal deficits. diffusely weak SKIN: No rashes. Assessment: Acute hypoxemic respiratory failure, multifactorial due to covid 19, bacterial pneumonia, possibly gram-negative, as well as Lung Ca COVID-19 pneumonia superimposed bacterial pneumonia, likely gram-negative History of lung cancer Leukocytosis Acute metabolic encephalopathy hypothyroidism History of hyperlipidemia moderate protein calorie malnutrition with a bmi of 19.4 GI prophylaxis DVT prophylaxis Plan: Continue IV abx with ID and pulmonary following. Patient is also continued on dexamethasone wean FI02 as tolerated, currently on 6L via NC Encourage oral intake and increased activity as tolerated PT to evaluate and will likely need ecf as patient is significantly weak, possible [place] with case management following Oncology consulted as patient was scheduled for outpatient PET and immunotherapy Overall prognosis is guarded The impression and plan of care has been dictated by Peggy Arshad, Nurse Practitioner as directed. MD Kaylee I have performed a history and examination and MDM of this patient, discussed the same with the dictator, and agree with the dictator's assessment and plan as written ,documented as a scribe. Based on total visit time, I have performed more than 50% of the visit. Objective - Vital Signs Vital signs: Vital Signs Temp 97.9 F 04/30/23 07:13 Pulse 94 04/30/23 07:13 Resp 19 04/30/23 07:13 BP 150/97 04/30/23 07:13 Pulse Ox 96 04/30/23 07:13 FiO2 Intake & Output 01/03/1204/30/23 04/30/23 18:59 06:59 18:59 Output Total 1200 Balance -1200 Output: Urine 1200 Other: Voiding Method External Catheter External Catheter External Catheter - Labs CBC & Chem 7: 04/30/23 06:28 04/30/23 06:28 Labs: Abnormal Lab Results - Last 24 Hours (Table) 04/30/23 Range/Units 06:28 WBC 26.71 H (4.50-10.00) X 10*3/uL RBC 2.78 L (4.10-5.20) X 10*6/uL Hgb 9.2 L (12.0-15.0) g/dL Hct 28.8 L (37.2-46.3) % MCV 103.6 H (80.0-97.0) FL MCH 33.1 H (27.0-32.0) pg MCHC 31.9 L (32.0-37.0) g/dL RDW 17.0 H (11.5-14.5) % Plt Count 584 H (140-440) X 10*3/uL MPV 9.2 L (9.5-12.2) FL Immature Gran # 0.87 H (0.00-0.04) X 10*3/uL Neutrophils # 20.67 H (1.80-7.70) X 10*3/uL Monocytes # 1.02 H (0.20-1.00) X 10*3/uL Microbiology - Last 24 Hours (Table) 04/27/23 20:53 Blood Culture - Preliminary Blood 04/27/23 20:47 Blood Culture - Preliminary Blood
[2023-05-01] MEDS: SODIUM CHLORIDE 0.9% 1,000 ML IV SCH (08:11)
[2023-05-01] MEDS: polyethylene glycoL 3350 17 GM POWD.PACK PO SCH (08:13)
[2023-05-01] MEDS: DEXAMETHASONE SOD PHOSPHATE 10 MG/ML 1 ML VIAL IVP SCH (08:13)
[2023-05-01] MEDS: SERTRALINE 50 MG TAB PO SCH (08:14)
[2023-05-01] MEDS: LORATADINE 10 MG TAB PO SCH (08:14)
[2023-05-01] MEDS: ASPIRIN 81 MG PO SCH (08:14)
[2023-05-01] MEDS: RIVAROXABAN 20 MG TAB PO SCH (08:16)
[2023-05-01] MEDS: MEGESTROL 400 MG/10 ML CUP PO SCH (08:16)
[2023-05-01 10:13] LABS: Basophils # (A) 0.04 X 10*3/uL (0.00-0.10); Basophils % (A) 0.2 %; Eosinophils # (A) 0.04 X 10*3/uL (0.04-0.35); Eosinophils % (A) 0.2 %; HCT 26.9 % (37.2-46.3); HGB 8.6 g/dL (12.0-15.0); Lymphocytes # (A) 3.56 X 10*3/uL (0.90-5.00); Lymphocytes % (A) 18.7 %; MCH 33.1 pg (27.0-32.0); MCV 103.5 FL (80.0-97.0); Mean Platelet Volume 9.3 FL (9.5-12.2); Monocytes # (A) 0.98 X 10*3/uL (0.20-1.00); Monocytes % (A) 5.1 %; NRBC Per 100 WBC 0 X 10*3/uL (0.00-0.01); Neutrophils # (A) 13.93 X 10*3/uL (1.80-7.70); Neutrophils % (A) 73.2 %; Platelet Count 605 X 10*3/uL (140-440); RDW 17.1 % (11.5-14.5); WBC 19.05 X 10*3/uL (4.50-10.00)
[2023-05-01 10:23] LABS: Blood Urea Nitrogen 7.7 mg/dL (9.0-27.0); Calcium 7.6 mg/dL (8.7-10.3); Carbon Dioxide 19.9 mmol/L (21.6-31.8); Chloride 101 mmol/L (96-109); Glucose 87 mg/dL (70-110); Potassium 4.1 mmol/L (3.5-5.5); Sodium 131 mmol/L (135-145)
--- NOTE | 2023-05-01 11:59 | P.PN ---
Subjective Progress Note Date: 05/01/23 I am seeing this patient in new consultation today 04/28/2023 after she presented yesterday to the emergency room with acute shortness of breath. She did test positive for COVID-19. Apparently, her had been positive for COVID-19 earlier in the week. Her PCP is Dr. Sophia Law out of [place], [place]. Patient is an 82-year-old female with past medical history significant for lung cancer, patient states she is undergoing systemic treatment with chemotherapy. She is unsure of who here oncologist is. She states her last round of chemotherapy was last week. She does not follow at this facility. She is a very poor historian, and there are no records to review. I'm uncertain if this is the patient's first COVID-19 infection or if she's been previously vaccinated. Patient is currently sitting up in bed, on 5 L/m nasal cannula. She does not normally use home O2. She is very fatigued. She is tachypneic breathing in the 30s to 40s. Patient reports ongoing shortness of breath for the last couple weeks. She's had an associated congested nonproductive cough. Admits to subjective fevers. Denies any hemoptysis. I did order a chest CT with contrast which showed volume loss of the right lung with collapse of right upper and middle lobes. This could be mucous plugging and consolidation as reported by radiologist or the patient's known pulmonary malignancy. There is also partial collapse of the left lower lobe. There is paratracheal and subcarinal adenopathy. CBC on arrival: WBC count 25.9, hemoglobin 10.8, hematocrit 32.5, platelets 452. BMP on arrival: Sodium 131, potassium 4.1, chloride 96, serum bicarb 19, BUN 14, creatinine 0.6, glucose 109. LFTs mildly elevated. UA not concerning for UTI. Procalcitonin elevated at 5.58. Obviously concern for superimposed bacterial infection. Patient is empirically covered on antibiotics. Currently is afebrile. Vitals are stable at this time. The patient is seen today 04/29/2023 in follow-up on the regular medical floor. She is currently sitting up in a chair at the bedside. Awake and alert in no acute distress. She is breathing easier today compared to yesterday. She is still on 6 L high flow nasal cannula. She has normal saline at 100. Chest x- ray shows near complete opacification of the right lung. Her family is at the bedside. She did receive chemotherapy 4 treatments. She is scheduled for an outpatient PET scan. The plan is for initiation of immunotherapy. She had her biopsy and testing done at [facility]. She follows with Dr. Mckeon in [place] for her oncology needs. White count 26.1. Hemoglobin 9.9. Platelets 620. Sodium 131. Potassium 3.9. Bicarb 18. BUN 10. Creatinine 0.48. She remains on bronchodilators, Decadron. Antibiotics in form of ceftriaxone. Anticoagulated with Xarelto. The patient is seen today 04/30/2023 in follow-up on the regular medical floor. She is currently sitting up in a chair. Awake and alert in no acute distress. She is requiring 6 L high flow nasal cannula to maintain O2 saturations in the 90s. She has normal saline at 100 ML's per hour. She is continued on ceftriaxone. Her pro-calcitonin was 5.58. Blood culture reveals no growth. White count 26.7. Hemogram 9.2. Platelets 584. Sodium 131. Potassium 4.7. Bicarb 16. BUN 10. Creatinine 0.5. Glucose 100. She remains on vitamin supplements and Decadron. Anticoagulated with Xarelto. The patient is seen today 05/01/2023 in follow-up on the regular medical floor. She is awake and alert in no acute distress. Sitting up in a chair at the bedside. Still requiring 6 L high flow nasal cannula to maintain O2 saturations in the 90s. She is continued on vitamin supplements, Decadron, antibiotics in the form of ceftriaxone. She remains anticoagulated with Xarelto. White count 19.0. Hemoglobin 8.6. Sodium 131. Potassium 4.1. BUN 7.7. Creatinine 0.5. Glucose 87. Objective - Vital Signs Vital signs: Vital Signs Temp 98.7 F 05/01/23 07:27 Pulse 94 05/01/23 07:27 Resp 17 05/01/23 07:27 BP 160/80 05/01/23 07:28 Pulse Ox 96 05/01/23 07:27 FiO2 Intake & Output 04/30/23 05/01/23 05/01/23 18:59 06:59 18:59 Output Total 1700 750 Balance -1700 -750 Output: Urine 1700 750 Other: Voiding Method External Catheter External Catheter Diaper External Catheter # Voids 1 # Bowel Movements 1 - Exam GENERAL EXAM: Alert, 82-year-old female, up in a chair, on 6 L nasal cannula, no acute distress. HEAD: Normocephalic and atraumatic EYES: Normal reaction of pupils, equal size. NOSE: Clear with pink turbinates. THROAT: No erythema or exudates. NECK: No masses, no JVD. CHEST: No chest wall deformity. LUNGS: Equal air entry with diminished bibasilar lung sounds and scattered crackles. No wheezes or rhonchi. CVS: S1 and S2 normal with no audible murmur, regular rhythm. No extra heart sounds ABDOMEN: No hepatosplenomegaly, active bowel sounds, no guarding or rigidity. SPINE: No scoliosis or deformity SKIN: No rashes CENTRAL NERVOUS SYSTEM: No focal deficits, tone is normal in all 4 extremities. EXTREMITIES: There is no peripheral edema, clubbing, or cyanosis. Peripheral pulses are intact. - Labs CBC & Chem 7: 05/01/23 06:15 05/01/23 06:15 Labs: Abnormal Lab Results - Last 24 Hours (Table) 04/30/23 04/30/23 05/01/23 Range/Units 06:28 06:28 06:15 WBC 19.05 H (4.50-10.00) X 10*3/uL RBC 2.60 L (4.10-5.20) X 10*6/uL Hgb 8.6 L (12.0-15.0) g/dL Hct 26.9 L (37.2-46.3) % MCV 103.5 H (80.0-97.0) FL MCH 33.1 H (27.0-32.0) pg RDW 17.1 H (11.5-14.5) % Plt Count 605 H (140-440) X 10*3/uL MPV 9.3 L (9.5-12.2) FL Immature Gran # 0.87 H 0.50 H (0.00-0.04) X 10*3/uL Neutrophils # 20.67 H 13.93 H (1.80-7.70) X 10*3/uL Monocytes # 1.02 H (0.20-1.00) X 10*3/uL Sodium 131 L (135-145) mmol/L Carbon Dioxide 15.8 L (21.6-31.8) mmol/L Anion Gap 13.20 H (4.00-12.00) mmol/L BUN (9.0-27.0) mg/dL Creatinine 0.5 L (0.6-1.5) mg/dL Calcium 7.8 L (8.7-10.3) mg/dL 05/01/23 Range/Units 06:15 WBC (4.50-10.00) X 10*3/uL RBC (4.10-5.20) X 10*6/uL Hgb (12.0-15.0) g/dL Hct (37.2-46.3) % MCV (80.0-97.0) FL MCH (27.0-32.0) pg RDW (11.5-14.5) % Plt Count (140-440) X 10*3/uL MPV (9.5-12.2) FL Immature Gran # (0.00-0.04) X 10*3/uL Neutrophils # (1.80-7.70) X 10*3/uL Monocytes # (0.20-1.00) X 10*3/uL Sodium 131 L (135-145) mmol/L Carbon Dioxide 19.9 L (21.6-31.8) mmol/L Anion Gap (4.00-12.00) mmol/L BUN 7.7 L (9.0-27.0) mg/dL Creatinine 0.5 L (0.6-1.5) mg/dL Calcium 7.6 L (8.7-10.3) mg/dL Microbiology - Last 24 Hours (Table) 04/27/23 20:53 Blood Culture - Preliminary Blood 04/27/23 20:47 Blood Culture - Preliminary Blood Assessment and Plan Assessment: Acute hypoxemic respiratory failure, currently on 6 L/m nasal cannula, likely multifactorial, secondary to acute COVID-19 infection/pneumonia, possible sup erimposed bacterial pneumonia, and primary lung cancer. Chest CT with contrast which showed volume loss of the right lung with collapse of right upper and middle lobes. There is minimal aeration of the right lower lobe. This could be mucous plugging and consolidation as reported by radiologist or the patient's known pulmonary malignancy. There is also partial collapse of the left lower lobe. There is paratracheal and subcarinal adenopathy. Leukocytosis, secondary to above management trending down. Remains on ceftriaxone History of lung cancer diagnosed at [facility], followed with Dr. Mckeon in [place], received chemotherapy, plan is for outpatient PET scan and possible immunotherapy COVID 19 infection and possible pneumonia Acute metabolic encephalopathy, secondary to above Hypothyroidism History of hyperlipidemia Remote history of tobacco dependence Plan: The patient was seen and evaluated Labs and medications reviewed Titrate down the FiO2 as tolerated Continue the current treatment plan May require home oxygen Plan is for subacute rehab post discharge This patient was seen independently by the pulmonary nurse practitioner addressing pulmonary issues I have personally seen and examined the patient, performed the documentation and the assessment and plan as written. Number of minutes spent on the visit: 24.
--- NOTE | 2023-05-01 12:16 | P.PN ---
Subjective Progress Note Date: 05/01/23 Principal diagnosis: reason for follow-up is COVID-19 and pneumonia Patient is a 82-year-old female with a past medical history significant for lung cancer CVA TIA reflux pneumonia patient was brought into the hospital for evaluation generalized weakness apparently the patient did tested positive at home about a week ago for COVID-19 infection and the patient has been getting sick over the last few days, CT of the chest with consolidation and mucous plugging throughout the right upper and middle lobe concerning for possible pneumonia. On today's evaluation that is 05/01/2023 patient remains to be afebrile, the patient breathing comfortably currently on 6 L nasal cannula oxygen, the patient denies any chest pain, the patient cough slightly decreased in intensity with occasional sputum production no hemoptysis denies any nausea vomiting abdominal pain or diarrhea Patient did have white count is down to 19.05, creatinine is 0.5, procalcitonin is 5.58 blood cultures so far negative sputum not collected Objective - Vital Signs Vital signs: Vital Signs Temp 98.7 F 05/01/23 07:27 Pulse 94 05/01/23 07:27 Resp 17 05/01/23 07:27 BP 160/80 05/01/23 07:28 Pulse Ox 96 05/01/23 07:27 FiO2 Intake & Output 04/30/23 05/01/23 05/01/23 18:59 06:59 18:59 Output Total 1700 750 Balance -1700 -750 Output: Urine 1700 750 Other: Voiding Method External Catheter External Catheter Diaper External Catheter # Voids 1 # Bowel Movements 1 - Exam GENERAL DESCRIPTION: An elderly female lying in bed in no distress RESPIRATORY SYSTEM: Unlabored breathing , decreased breath sounds at bases HEART: S1 S2 regular rate and rhythm , ABDOMEN: Soft , no tenderness EXTREMITIES: No edema feet - Labs CBC & Chem 7: 05/01/23 06:15 05/01/23 06:15 Labs: Abnormal Lab Results - Last 24 Hours (Table) 04/30/23 05/01/23 05/01/23 Range/Units 06:28 06:15 06:15 WBC 19.05 H (4.50-10.00) X 10*3/uL RBC 2.60 L (4.10-5.20) X 10*6/uL Hgb 8.6 L (12.0-15.0) g/dL Hct 26.9 L (37.2-46.3) % MCV 103.5 H (80.0-97.0) FL MCH 33.1 H (27.0-32.0) pg RDW 17.1 H (11.5-14.5) % Plt Count 605 H (140-440) X 10*3/uL MPV 9.3 L (9.5-12.2) FL Immature Gran # 0.50 H (0.00-0.04) X 10*3/uL Neutrophils # 13.93 H (1.80-7.70) X 10*3/uL Sodium 131 L 131 L (135-145) mmol/L Carbon Dioxide 15.8 L 19.9 L (21.6-31.8) mmol/L Anion Gap 13.20 H (4.00-12.00) mmol/L BUN 7.7 L (9.0-27.0) mg/dL Creatinine 0.5 L 0.5 L (0.6-1.5) mg/dL Calcium 7.8 L 7.6 L (8.7-10.3) mg/dL Microbiology - Last 24 Hours (Table) 04/27/23 20:53 Blood Culture - Preliminary Blood 04/27/23 20:47 Blood Culture - Preliminary Blood Assessment and Plan (1) Leukocytosis Current Visit: Yes Status: Acute Code(s): D72.829 - ELEVATED WHITE BLOOD CELL COUNT, UNSPECIFIED SNOMED Code(s): 064134063 (2) Allergy to sulfa drugs Current Visit: Yes Status: Acute Code(s): Z88.2 - ALLERGY STATUS TO SULFONAMIDES SNOMED Code(s): 16938659 (3) COVID-19 Current Visit: Yes Status: Acute Priority: High Code(s): U07.1 - COVID-19 SNOMED Code(s): 649859330 (4) Pneumonia Current Visit: Yes Status: Acute Priority: High Code(s): J18.9 - PNEUMONIA, UNSPECIFIED ORGANISM SNOMED Code(s): 989242321 Plan: 1patient presented to the hospital with increasing weakness and this patient tested positive for COVID-19 about a week ago now presenting to the hospital wit h increasing weakness cough patient did have elevated white count and CT of the chest that shows consolidation and mucous plugging throughout the right upper and lower lobe concerning for secondary bacterial pneumonia 2patient did have elevated CRP and a procalcitonin, nursing staff has been advised to obtain a sputum for culture again 3patient did have some clinical improvement in the patient white count is trending down. 4patient to continue Rocephin and Zithromax and monitor clinical course closely Thank you for this consultation we will follow the patient along with you Time with Patient: Less than 30
[2023-05-01] MEDS: ALBUTEROL HFA INHALER INHALATION PRN ×2 (14:57→21:22)
[2023-05-01] MEDS: PANTOPRAZOLE 40 MG TABLET PO SCH (15:01)
[2023-05-01] MEDS: ALPRAZolam 0.5 MG TAB PO PRN (15:06)
--- NOTE | 2023-05-01 15:28 | P.PN ---
Subjective Progress Note Date: 05/01/23 82-year-old lady with past medical significant for lung cancer brought to the ER for generalized weakness. Patient stated that she has not been feeling herself in the last few days. Patient has been complaining of generalized weakness and fatigue. Patient did test positive for COVID-19 one week back. Patient has been complaining of cough and shortness of breath. Cough is productive. Denies any chest pain or palpitation. There is orthopnea or pnd. No complete of fever or chills at home. Patient has been complaining of decreased appetite. Because of the symptoms, patient came to the ER Initial lab work done in the ER showed WBC 25.9, hemoglobin 10.8, platelet count 452, sodium 131, potassium 4.1, BUN 14.7, creatinine 0.6, AST 70, ALT 165, CRP 21.6 UA negative for infection Influenza A not detected Influenza B not detected RSV not detected COVID-19 detected Chest x-ray done in the ER showed large pleural fluid election with right lower lobe consolidation CT chest done showed consolidation and mucous plugging throughout the right upper and middle lobes. Mucous plugging and collapse of the right lower lobe Patient admitted to internal medicine service 04/29/2023 Patient is seen in follow up today being followed by pulmonary and infectious disease. Patient with recent covid 19 and concerns for pneumonia and with significant hx of lung Ca. Patient is afebrile and continued on 6L and recommend weaning FI02 as tolerated. Patient with overall weakness and being evaluated by PT/OT with possible ecf being planned. Patient needs encouragement with meals and increased activity as tolerated. IV abx in the form of ceftriaxone and zithromax to continue. 04/30/2023 Patient is seen in follow-up this morning continues to be extremely weak maintained on 6 L reporting shortness of breath. Patient is extremely frail and thin built and appears elderly and ill-appearing. Patient is somewhat eating and needs encouragement. Patient also continued on IV antibiotics with infectious disease following as well as pulmonary. Patient is currently afebrile with no reported chest pain or palpitations. 05/01/2023: Patient seen and evaluated bedside, patient been treated for Covid, patient on 6 L of oxygen, son at bedside as well. Patient states breathing has improved denies fever, chills, chest pain, hemoptysis PHYSICAL EXAMINATION: GENERAL: The patient is alert and oriented x3, ill appearance, nasal cannula in place, thin built HEENT: Pupils are round and equally reacting to light. EOMI. No scleral icterus. No conjunctival pallor. Normocephalic, atraumatic. No pharyngeal erythema. No thyromegaly. CARDIOVASCULAR: S1 and S2 present. No murmurs, rubs, or gallops. PULMONARY: Decreased breath sounds bilaterally no crackles audible ABDOMEN: Soft, nontender, nondistended, normoactive bowel sounds. No palpable organomegaly. MUSCULOSKELETAL: No joint swelling or deformity. EXTREMITIES: No cyanosis, clubbing, or pedal edema. NEUROLOGICAL: Gross neurological examination did not reveal any focal deficits. Objective - Vital Signs Vital signs: Vital Signs Temp 97.9 F 05/01/23 15:04 Pulse 98 05/01/23 15:04 Resp 19 05/01/23 15:04 BP 129/81 05/01/23 15:04 Pulse Ox 95 05/01/23 15:04 FiO2 Intake & Output 04/30/23 05/01/23 05/01/23 18:59 06:59 18:59 Output Total 1700 1300 Balance -1700 -1300 Output: Urine 1700 1300 Other: Voiding Method External Catheter External Catheter Diaper External Catheter # Voids 1 # Bowel Movements 1 - Labs CBC & Chem 7: 05/01/23 06:15 05/01/23 06:15 Labs: Abnormal Lab Results - Last 24 Hours (Table) 05/01/23 05/01/23 Range/Units 06:15 06:15 WBC 19.05 H (4.50-10.00) X 10*3/uL RBC 2.60 L (4.10-5.20) X 10*6/uL Hgb 8.6 L (12.0-15.0) g/dL Hct 26.9 L (37.2-46.3) % MCV 103.5 H (80.0-97.0) FL MCH 33.1 H (27.0-32.0) pg RDW 17.1 H (11.5-14.5) % Plt Count 605 H (140-440) X 10*3/uL MPV 9.3 L (9.5-12.2) FL Immature Gran # 0.50 H (0.00-0.04) X 10*3/uL Neutrophils # 13.93 H (1.80-7.70) X 10*3/uL Sodium 131 L (135-145) mmol/L Carbon Dioxide 19.9 L (21.6-31.8) mmol/L BUN 7.7 L (9.0-27.0) mg/dL Creatinine 0.5 L (0.6-1.5) mg/dL Calcium 7.6 L (8.7-10.3) mg/dL Microbiology - Last 24 Hours (Table) 04/27/23 20:53 Blood Culture - Preliminary Blood 04/27/23 20:47 Blood Culture - Preliminary Blood Assessment and Plan Assessment: Assessment and plan * Acute hypoxic respiratory failure multifactorial secondary to Covid 19, underlying lung cancer and superimposed bacterial pneumonia * Acute metabolic encephalopathy improved * Protein calorie malnutrition moderate * Hypothyroidism * Sepsis secondary to pneumonia and Covid * In regards to respiratory failure continue patient on oxygen supplementation him a continue IV antibiotics including Rocephin, continue breathing treatments * In regards to Covid 19 continue supplementation with cirrhosis even dexamethasone, Tessalon Perles, albuterol. Anticoagulated which are all 2 * In regards to hypothyroid continue Synthyroid * In regards to sepsis secondary to underlying pneumonia and Covid blood cultures collected remain negative continue IV Rocephin
[2023-05-01] MEDS: MAG HYDROX/AL HYDROX/SIMETH 30 ML CUP PO PRN (16:38)
[2023-05-01] MEDS: CALCIUM CARBONATE 500 MG CHEWABLE PO SCH (18:31)
[2023-05-01] MEDS: ASCORBIC ACID 500 MG TAB PO SCH (20:18)
[2023-05-01] MEDS: CHOLECALCIFEROL 25 MCG (1000 IU) TABLET PO SCH (20:18)
[2023-05-01] MEDS: ATORVASTATIN 10 MG TAB PO SCH (20:19)
[2023-05-01] MEDS: FLUTICASONE 50MCG/SPRAY NASAL 16GM EA NOSTRIL SCH (21:58)
[2023-05-02] MEDS: ACETAMINOPHEN TAB 500 MG TAB PO PRN ×4 (00:40→18:49)
[2023-05-02] MEDS: ALPRAZolam 0.5 MG TAB PO PRN ×2 (04:33→17:02)
[2023-05-02] MEDS: PANTOPRAZOLE 40 MG TABLET PO SCH (06:37)
[2023-05-02] MEDS ORDERED: PANTOPRAZOLE 40 MG TABLET PO SCH (07:30)
[2023-05-02] MEDS: ASPIRIN 81 MG PO SCH (07:40)
[2023-05-02] MEDS: SERTRALINE 50 MG TAB PO SCH (07:40)
[2023-05-02] MEDS: LORATADINE 10 MG TAB PO SCH (07:40)
[2023-05-02] MEDS: DEXAMETHASONE SOD PHOSPHATE 10 MG/ML 1 ML VIAL IVP SCH (07:41)
[2023-05-02] MEDS: polyethylene glycoL 3350 17 GM POWD.PACK PO SCH (07:41)
[2023-05-02] MEDS: MEGESTROL 400 MG/10 ML CUP PO SCH (07:41)
[2023-05-02] MEDS: SODIUM CHLORIDE 0.9% 1,000 ML IV SCH (07:42)
[2023-05-02] MEDS: RIVAROXABAN 20 MG TAB PO SCH (07:42)
--- NOTE | 2023-05-02 07:51 | XR ---
EXAMINATION TYPE: XR chest 1V portable DATE OF EXAM: 05/02/2023 COMPARISON: 04/28/2023 INDICATION: Respiratory failure TECHNIQUE: Single frontal view of the chest is obtained. FINDINGS: The heart size is normal. The pulmonary vasculature is normal. Is opacification to the right apex. Pneumonia and atelectasis could be considered. Right lower lobe has cleared. IMPRESSION: 1. Improved right lower lobe aeration. Persistent opacity at the right apex. Correlate for atelectasi s and pneumonia. Continued follow-up is recommended
[2023-05-02] MEDS: ALBUTEROL HFA INHALER INHALATION PRN ×3 (09:53→18:28)
[2023-05-02 10:02] LABS: HCT 25.7 % (37.2-46.3); HGB 8.4 g/dL (12.0-15.0); MCH 33.3 pg (27.0-32.0); MCHC 32.7 g/dL (32.0-37.0); Mean Platelet Volume 9.2 FL (9.5-12.2); NRBC Per 100 WBC 0 X 10*3/uL (0.00-0.01); Platelet Count 647 X 10*3/uL (140-440); RBC 2.52 X 10*6/uL (4.10-5.20); RDW 17.2 % (11.5-14.5); WBC 18.63 X 10*3/uL (4.50-10.00)
[2023-05-02 10:16] LABS: BUN/Creat Ratio 21.17 Ratio (12.00-20.00); Blood Urea Nitrogen 12.7 mg/dL (9.0-27.0); Calcium 8.2 mg/dL (8.7-10.3); Chloride 98 mmol/L (96-109); Glucose 94 mg/dL (70-110); Sodium 130 mmol/L (135-145)
[2023-05-02] MEDS: CARBAMIDE PEROXIDE 6.5% DROPS 15 ML BTL RIGHT EAR SCH ×2 (10:56→20:02)
--- NOTE | 2023-05-02 11:29 | P.PN ---
Subjective Progress Note Date: 05/02/23 I am seeing this patient in new consultation today 04/28/2023 after she presented yesterday to the emergency room with acute shortness of breath. She did test positive for COVID-19. Apparently, her had been positive for COVID-19 earlier in the week. Her PCP is Dr. Sophia Law out of [place], [place]. Patient is an 82-year-old female with past medical history significant for lung cancer, patient states she is undergoing systemic treatment with chemotherapy. She is unsure of who here oncologist is. She states her last round of chemotherapy was last week. She does not follow at this facility. She is a very poor historian, and there are no records to review. I'm uncertain if this is the patient's first COVID-19 infection or if she's been previously vaccinated. Patient is currently sitting up in bed, on 5 L/m nasal cannula. She does not normally use home O2. She is very fatigued. She is tachypneic breathing in the 30s to 40s. Patient reports ongoing shortness of breath for the last couple weeks. She's had an associated congested nonproductive cough. Admits to subjective fevers. Denies any hemoptysis. I did order a chest CT with contrast which showed volume loss of the right lung with collapse of right upper and middle lobes. This could be mucous plugging and consolidation as reported by radiologist or the patient's known pulmonary malignancy. There is also partial collapse of the left lower lobe. There is paratracheal and subcarinal adenopathy. CBC on arrival: WBC count 25.9, hemoglobin 10.8, hematocrit 32.5, platelets 452. BMP on arrival: Sodium 131, potassium 4.1, chloride 96, serum bicarb 19, BUN 14, creatinine 0.6, glucose 109. LFTs mildly elevated. UA not concerning for UTI. Procalcitonin elevated at 5.58. Obviously concern for superimposed bacterial infection. Patient is empirically covered on antibiotics. Currently is afebrile. Vitals are stable at this time. The patient is seen today 04/29/2023 in follow-up on the regular medical floor. She is currently sitting up in a chair at the bedside. Awake and alert in no acute distress. She is breathing easier today compared to yesterday. She is still on 6 L high flow nasal cannula. She has normal saline at 100. Chest x- ray shows near complete opacification of the right lung. Her family is at the bedside. She did receive chemotherapy 4 treatments. She is scheduled for an outpatient PET scan. The plan is for initiation of immunotherapy. She had her biopsy and testing done at [facility]. She follows with Dr. Mckeon in [place] for her oncology needs. White count 26.1. Hemoglobin 9.9. Platelets 620. Sodium 131. Potassium 3.9. Bicarb 18. BUN 10. Creatinine 0.48. She remains on bronchodilators, Decadron. Antibiotics in form of ceftriaxone. Anticoagulated with Xarelto. The patient is seen today 04/30/2023 in follow-up on the regular medical floor. She is currently sitting up in a chair. Awake and alert in no acute distress. She is requiring 6 L high flow nasal cannula to maintain O2 saturations in the 90s. She has normal saline at 100 ML's per hour. She is continued on ceftriaxone. Her pro-calcitonin was 5.58. Blood culture reveals no growth. White count 26.7. Hemogram 9.2. Platelets 584. Sodium 131. Potassium 4.7. Bicarb 16. BUN 10. Creatinine 0.5. Glucose 100. She remains on vitamin supplements and Decadron. Anticoagulated with Xarelto. The patient is seen today 05/01/2023 in follow-up on the regular medical floor. She is awake and alert in no acute distress. Sitting up in a chair at the bedside. Still requiring 6 L high flow nasal cannula to maintain O2 saturations in the 90s. She is continued on vitamin supplements, Decadron, antibiotics in the form of ceftriaxone. She remains anticoagulated with Xarelto. White count 19.0. Hemoglobin 8.6. Sodium 131. Potassium 4.1. BUN 7.7. Creatinine 0.5. Glucose 87. The patient is seen today 05/02/2023 in follow-up on the regular medical floor. She is currently resting in bed. Awake and alert in no acute distress. She is maintaining O2 saturations in the 90s on 3 L/m per nasal cannula. Normal saline at 20 ML's per hour. Follow-up chest x-ray shows improved aeration of the right lower lobe. There is a persistent opacity in the right apex. Suspect atelec tasis versus infiltrate. Sputum culture revealed no growth to date. Blood culture revealed no growth. White count 18.6. Hemoglobin 8.4. Platelets 647. Sodium 1:30. Potassium 4.0. Bicarb 20. BUN 13. Creatinine 0.6. C-reactive protein 1.70. She is continued on Decadron, albuterol, ceftriaxone. Anticoagulated with Xarelto. Objective - Vital Signs Vital signs: Vital Signs Temp 98.3 F 05/02/23 07:16 Pulse 96 05/02/23 07:16 Resp 16 05/02/23 07:16 BP 123/78 05/02/23 07:16 Pulse Ox 94 L 05/02/23 10:03 FiO2 Intake & Output 05/01/23 05/02/23 05/02/23 18:59 06:59 18:59 Output Total 1300 1200 Balance -1300 -1200 Output: Urine 1300 1200 Other: Voiding Method Diaper Diaper Diaper External Catheter External Catheter External Catheter # Voids 2 # Bowel Movements 1 - Exam GENERAL EXAM: Alert, pleasant 82-year-old female, resting in bed, on 3 L nasal cannula, no acute distress. HEAD: Normocephalic and atraumatic EYES: Normal reaction of pupils, equal size. NOSE: Clear with pink turbinates. THROAT: No erythema or exudates. NECK: No masses, no JVD. CHEST: No chest wall deformity. LUNGS: Equal air entry with diminished bibasilar lung sounds few crackles right lung base. No wheezes or rhonchi. CVS: S1 and S2 normal with no audible murmur, regular rhythm. No extra heart sounds ABDOMEN: No hepatosplenomegaly, active bowel sounds, no guarding or rigidity. SPINE: No scoliosis or deformity SKIN: No rashes CENTRAL NERVOUS SYSTEM: No focal deficits, tone is normal in all 4 extremities. EXTREMITIES: There is no peripheral edema, clubbing, or cyanosis. Peripheral pulses are intact. - Labs CBC & Chem 7: 05/02/23 04:52 05/02/23 04:52 Labs: Abnormal Lab Results - Last 24 Hours (Table) 05/02/23 05/02/23 Range/Units 04:52 04:52 WBC 18.63 H (4.50-10.00) X 10*3/uL RBC 2.52 L (4.10-5.20) X 10*6/uL Hgb 8.4 L (12.0-15.0) g/dL Hct 25.7 L (37.2-46.3) % MCV 102.0 H (80.0-97.0) FL MCH 33.3 H (27.0-32.0) pg RDW 17.2 H (11.5-14.5) % Plt Count 647 H (140-440) X 10*3/uL MPV 9.2 L (9.5-12.2) FL Sodium 130 L (135-145) mmol/L Carbon Dioxide 20.0 L (21.6-31.8) mmol/L BUN/Creatinine Ratio 21.17 H (12.00-20.00) Ratio Calcium 8.2 L (8.7-10.3) mg/dL C-Reactive Protein 1.70 H (0.00-0.80) mg/dL Microbiology - Last 24 Hours (Table) 05/01/23 06:40 Gram Stain - Preliminary Sputum 04/27/23 20:53 Blood Culture - Preliminary Blood Assessment and Plan Assessment: Acute hypoxemic respiratory failure, currently on 6 L/m nasal cannula, likely multifactorial, secondary to acute COVID-19 infection/pneumonia, possible superimposed bacterial pneumonia, and primary lung cancer. Chest CT with contrast which showed volume loss of the right lung with collapse of right upper and middle lobes. There is minimal aeration of the right lower lobe. This could be mucous plugging and consolidation as reported by radiologist or the patient's known pulmonary malignancy. There is also partial collapse of the left lower lobe. There is paratracheal and subcarinal adenopathy. Follow-up chest x-ray today 05/02/2023 reveals improved aeration of the right lung base Leukocytosis, secondary to above management trending down. Remains on ceftriaxone History of lung cancer diagnosed at [facility], followed with Dr. Mckeon in [place], received chemotherapy, plan is for outpatient PET scan and possible immunotherapy COVID 19 infection and possible pneumonia Acute metabolic encephalopathy, secondary to above Hypothyroidism History of hyperlipidemia Remote history of tobacco dependence Plan: The patient was seen and evaluated Labs and medications reviewed Titrate down the FiO2 as tolerated Remains on bronchodilators, steroids Continued on ceftriaxone May require home oxygen Plan is for subacute rehab post discharge This patient was seen independently by the pulmonary nurse practitioner addressing pulmonary issues I have personally seen and examined the patient, performed the documentation and the assessment and plan as written. Number of minutes spent on the visit: 23.
[2023-05-02] MEDS: ZINC OXIDE PASTE (Z-GUARD) 1 APPLIC TOPICAL PRN (13:32)
--- NOTE | 2023-05-02 14:27 | P.PN ---
Subjective Progress Note Date: 05/02/23 82-year-old lady with past medical significant for lung cancer brought to the ER for generalized weakness. Patient stated that she has not been feeling herself in the last few days. Patient has been complaining of generalized weakness and fatigue. Patient did test positive for COVID-19 one week back. Patient has been complaining of cough and shortness of breath. Cough is productive. Denies any chest pain or palpitation. There is orthopnea or pnd. No complete of fever or chills at home. Patient has been complaining of decreased appetite. Because of the symptoms, patient came to the ER Initial lab work done in the ER showed WBC 25.9, hemoglobin 10.8, platelet count 452, sodium 131, potassium 4.1, BUN 14.7, creatinine 0.6, AST 70, ALT 165, CRP 21.6 UA negative for infection Influenza A not detected Influenza B not detected RSV not detected COVID-19 detected Chest x-ray done in the ER showed large pleural fluid election with right lower lobe consolidation CT chest done showed consolidation and mucous plugging throughout the right upper and middle lobes. Mucous plugging and collapse of the right lower lobe Patient admitted to internal medicine service 04/29/2023 Patient is seen in follow up today being followed by pulmonary and infectious disease. Patient with recent covid 19 and concerns for pneumonia and with significant hx of lung Ca. Patient is afebrile and continued on 6L and recommend weaning FI02 as tolerated. Patient with overall weakness and being evaluated by PT/OT with possible ecf being planned. Patient needs encouragement with meals and increased activity as tolerated. IV abx in the form of ceftriaxone and zithromax to continue. 04/30/2023 Patient is seen in follow-up this morning continues to be extremely weak maintained on 6 L reporting shortness of breath. Patient is extremely frail and thin built and appears elderly and ill-appearing. Patient is somewhat eating and needs encouragement. Patient also continued on IV antibiotics with infectious disease following as well as pulmonary. Patient is currently afebrile with no reported chest pain or palpitations. 05/01/2023: Patient seen and evaluated bedside, patient been treated for Covid, patient on 6 L of oxygen, son at bedside as well. Patient states breathing has improved denies fever, chills, chest pain, hemoptysis 05/02/2023: Patient seen and evaluated bedside, family at bedside as well, significant improvement noted patient's her breathing better chest x-ray has improved as well right ear discomfort has improved continue to use eardrops continue with current medical management PHYSICAL EXAMINATION: GENERAL: The patient is alert and oriented x3, ill appearance, nasal cannula in place, thin built HEENT: Pupils are round and equally reacting to light. EOMI. No scleral icterus. No conjunctival pallor. Normocephalic, atraumatic. No pharyngeal erythema. No thyromegaly. CARDIOVASCULAR: S1 and S2 present. No murmurs, rubs, or gallops. PULMONARY: Decreased breath sounds bilaterally no crackles audible ABDOMEN: Soft, nontender, nondistended, normoactive bowel sounds. No palpable organomegaly. MUSCULOSKELETAL: No joint swelling or deformity. EXTREMITIES: No cyanosis, clubbing, or pedal edema. NEUROLOGICAL: Gross neurological examination did not reveal any focal deficits. Objective - Vital Signs Vital signs: Vital Signs Temp 98.3 F 05/02/23 07:16 Pulse 96 05/02/23 07:16 Resp 16 05/02/23 07:16 BP 123/78 05/02/23 07:16 Pulse Ox 94 L 05/02/23 10:03 FiO2 Intake & Output 05/01/23 05/02/23 05/02/23 18:59 06:59 18:59 Output Total 1300 1200 Balance -1300 -1200 Output: Urine 1300 1200 Other: Voiding Method Diaper Diaper Diaper External Catheter External Catheter External Catheter # Voids 2 # Bowel Movements 1 - Labs CBC & Chem 7: 05/02/23 04:52 05/02/23 04:52 Labs: Abnormal Lab Results - Last 24 Hours (Table) 05/02/23 05/02/23 Range/Units 04:52 04:52 WBC 18.63 H (4.50-10.00) X 10*3/uL RBC 2.52 L (4.10-5.20) X 10*6/uL Hgb 8.4 L (12.0-15.0) g/dL Hct 25.7 L (37.2-46.3) % MCV 102.0 H (80.0-97.0) FL MCH 33.3 H (27.0-32.0) pg RDW 17.2 H (11.5-14.5) % Plt Count 647 H (140-440) X 10*3/uL MPV 9.2 L (9.5-12.2) FL Sodium 130 L (135-145) mmol/L Carbon Dioxide 20.0 L (21.6-31.8) mmol/L BUN/Creatinine Ratio 21.17 H (12.00-20.00) Ratio Calcium 8.2 L (8.7-10.3) mg/dL C-Reactive Protein 1.70 H (0.00-0.80) mg/dL Microbiology - Last 24 Hours (Table) 05/01/23 06:40 Gram Stain - Preliminary Sputum 04/27/23 20:53 Blood Culture - Preliminary Blood Assessment and Plan Assessment: Assessment and plan * Acute hypoxic respiratory failure multifactorial secondary to Covid 19, underlying lung cancer and superimposed bacterial pneumonia * Acute metabolic encephalopathy improved * Protein calorie malnutrition moderate * Hypothyroidism * Sepsis secondary to pneumonia and Covid * In regards to respiratory failure continue patient on oxygen supplementation him a continue IV antibiotics including Rocephin, continue breathing treatments * In regards to Covid 19 continue supplementation with cirrhosis even dexamethasone, Tessalon Perles, albuterol. Anticoagulated on Zoloft all home medication * In regards to hypothyroid continue Synthyroid * In regards to sepsis secondary to underlying pneumonia and Covid blood culture s collected remain negative continue IV Rocephin day 5
[2023-05-02] MEDS: guaiFENesin SYRUP 100MG/5ML 200 MG/10 ML CUP PO PRN (17:04)
--- NOTE | 2023-05-02 17:09 | P.PN ---
Subjective Progress Note Date: 05/02/23 Principal diagnosis: reason for follow-up is COVID-19 and pneumonia Patient is a 82-year-old female with a past medical history significant for lung cancer CVA TIA reflux pneumonia patient was brought into the hospital for evaluation generalized weakness apparently the patient did tested positive at home about a week ago for COVID-19 infection and the patient has been getting sick over the last few days, CT of the chest with consolidation and mucous plugging throughout the right upper and middle lobe concerning for possible pneumonia. On today's evaluation that is 05/02/2023, the patient remains to be afebrile, the patient is breathing comfortably and is down to 3 L nasal cannula oxygen and the patient denies any shortness of breath, the patient denies chest pain or any worsening cough or sputum production, patient denies any nausea/vomiting abdominal pain or diarrhea Patient did have white count is down to 18.63, creatinine is 0.6, procalcitonin is 5.58 blood cultures so far negative, sputum cultures pending Objective - Vital Signs Vital signs: Vital Signs Temp 97.6 F 05/02/23 13:44 Pulse 106 H 05/02/23 13:44 Resp 19 05/02/23 13:44 BP 103/69 05/02/23 13:44 Pulse Ox 95 05/02/23 13:44 FiO2 Intake & Output 05/01/23 05/02/23 05/02/23 18:59 06:59 18:59 Output Total 1300 1200 950 Balance -1300 -1200 -950 Output: Urine 1300 1200 950 Stool 0 Other: Voiding Method Diaper Diaper Diaper External Catheter External Catheter External Catheter # Voids 2 # Bowel Movements 1 - Exam GENERAL DESCRIPTION: An elderly female lying in bed in no distress RESPIRATORY SYSTEM: Unlabored breathing , decreased breath sounds at bases HEART: S1 S2 regular rate and rhythm , ABDOMEN: Soft , no tenderness EXTREMITIES: No edema feet - Labs CBC & Chem 7: 05/02/23 04:52 05/02/23 04:52 Labs: Abnormal Lab Results - Last 24 Hours (Table) 05/02/23 05/02/23 Range/Units 04:52 04:52 WBC 18.63 H (4.50-10.00) X 10*3/uL RBC 2.52 L (4.10-5.20) X 10*6/uL Hgb 8.4 L (12.0-15.0) g/dL Hct 25.7 L (37.2-46.3) % MCV 102.0 H (80.0-97.0) FL MCH 33.3 H (27.0-32.0) pg RDW 17.2 H (11.5-14.5) % Plt Count 647 H (140-440) X 10*3/uL MPV 9.2 L (9.5-12.2) FL Sodium 130 L (135-145) mmol/L Carbon Dioxide 20.0 L (21.6-31.8) mmol/L BUN/Creatinine Ratio 21.17 H (12.00-20.00) Ratio Calcium 8.2 L (8.7-10.3) mg/dL C-Reactive Protein 1.70 H (0.00-0.80) mg/dL Microbiology - Last 24 Hours (Table) 05/01/23 06:40 Gram Stain - Preliminary Sputum Sputum Culture - Preliminary 04/27/23 20:53 Blood Culture - Preliminary Blood Assessment and Plan (1) Leukocytosis Current Visit: Yes Status: Acute Code(s): D72.829 - ELEVATED WHITE BLOOD CELL COUNT, UNSPECIFIED SNOMED Code(s): 824253445 (2) Allergy to sulfa drugs Current Visit: Yes Status: Acute Code(s): Z88.2 - ALLERGY STATUS TO SULFONAMIDES SNOMED Code(s): 99316253 (3) COVID-19 Current Visit: Yes Status: Acute Priority: High Code(s): U07.1 - COVID-19 SNOMED Code(s): 961395692 (4) Pneumonia Current Visit: Yes Status: Acute Priority: High Code(s): J18.9 - PNEUMONIA, UNSPECIFIED ORGANISM SNOMED Code(s): 295198248 Plan: 1patient presented to the hospital with increasing weakness and this patient tested positive for COVID-19 about a week ago now presenting to the hospital with increasing weakness cough patient did have elevated white count and CT of the chest that shows consolidation and mucous plugging throughout the right upper and lower lobe concerning for secondary bacterial pneumonia 2patient did have elevated CRP and a procalcitonin, sputum culture obtained currently pending blood culture so far negative 3patient did have some clinical improvement in the patient white count is trending down. 4patient to continue Rocephin and Zithromax and continue with supportive care Thank you for this consultation we will follow the patient along with you Time with Patient: Less than 30
[2023-05-02] MEDS: ASCORBIC ACID 500 MG TAB PO SCH (20:02)
[2023-05-02] MEDS: ATORVASTATIN 10 MG TAB PO SCH (20:02)
[2023-05-02] MEDS: CALCIUM CARBONATE 500 MG CHEWABLE PO SCH (20:02)
[2023-05-02] MEDS: FLUTICASONE 50MCG/SPRAY NASAL 16GM EA NOSTRIL SCH (20:02)
[2023-05-02] MEDS: CHOLECALCIFEROL 25 MCG (1000 IU) TABLET PO SCH (20:02)
[2023-05-03] MEDS: ACETAMINOPHEN TAB 500 MG TAB PO PRN ×2 (03:11→15:54)
[2023-05-03] MEDS: ZINC OXIDE PASTE (Z-GUARD) 1 APPLIC TOPICAL PRN (03:11)
[2023-05-03] MEDS: PANTOPRAZOLE 40 MG TABLET PO SCH (07:02)
[2023-05-03] MEDS: LEVOTHYROXINE 75 MCG TAB PO SCH (07:02)
[2023-05-03] MEDS: RIVAROXABAN 20 MG TAB PO SCH (08:43)
[2023-05-03] MEDS: ASPIRIN 81 MG PO SCH (08:43)
[2023-05-03] MEDS: LORATADINE 10 MG TAB PO SCH (08:44)
[2023-05-03] MEDS: SERTRALINE 50 MG TAB PO SCH (08:44)
[2023-05-03] MEDS: MEGESTROL 400 MG/10 ML CUP PO SCH (08:44)
[2023-05-03] MEDS: CARBAMIDE PEROXIDE 6.5% DROPS 15 ML BTL RIGHT EAR SCH ×2 (08:45→20:49)
[2023-05-03] MEDS: DEXAMETHASONE SOD PHOSPHATE 10 MG/ML 1 ML VIAL IVP SCH (08:45)
[2023-05-03] MEDS: polyethylene glycoL 3350 17 GM POWD.PACK PO SCH (08:46)
[2023-05-03 08:51] LABS: Blood Urea Nitrogen 15.3 mg/dL (9.0-27.0); Calcium 8.3 mg/dL (8.7-10.3); Carbon Dioxide 21.1 mmol/L (21.6-31.8); Chloride 98 mmol/L (96-109); Glucose 98 mg/dL (70-110); Potassium 4.1 mmol/L (3.5-5.5); Sodium 130 mmol/L (135-145)
[2023-05-03 09:22] LABS: HCT 27.1 % (37.2-46.3); HGB 8.8 g/dL (12.0-15.0); MCH 33.7 pg (27.0-32.0); MCHC 32.5 g/dL (32.0-37.0); MCV 103.8 FL (80.0-97.0); Mean Platelet Volume 9.1 FL (9.5-12.2); NRBC Per 100 WBC 0 X 10*3/uL (0.00-0.01); Platelet Count 706 X 10*3/uL (140-440); RBC 2.61 X 10*6/uL (4.10-5.20); RDW 17.3 % (11.5-14.5); WBC 18.23 X 10*3/uL (4.50-10.00)
--- NOTE | 2023-05-03 12:11 | P.PN ---
Subjective Progress Note Date: 05/03/23 05/03/2023, I am seeing the patient in follow-up regarding acute hypoxic respiratory failure. The patient's respiratory failure was secondary to COVID- 19 infection/pneumonia and suspected superimposed bacterial pneumonia in addition to underlying primary lung cancer. The patient has been in the hospital for at least a week and a CAT scan of the chest was done showed volume loss on the right with collapse of the right upper lobe and the middle lobes and minimal aeration in the right lower lobe. There is also some consolidation versus malignancy and a partial collapse of the left lower lobe and evidence of paratracheal and subcarinal lymphadenopathy. Patient has been diagnosed having lung cancer in [place] in [place] under the care of Dr. Mckeon. The patienthan is on Decadron. The patient is on IV Rocephin. Sitting up in a chair. Note that the patient tested positive for COVID-19 prior to her hospital admission and she has been taking systemic chemotherapy regarding her lung cancer. In regards to COVID-19, this is her initial infection and the patient not sure if she has taken any vaccination. Procalcitonin obtained with machine was at 5.58 which raised concern for superinfection. White cell count was also elevated at 25.8. There is no subsequent drop in the white cell count. CRP level is at 1.7. Legionella urine antigen is negative. Electrolytes are stable. Renal function is stable. Blood work from today shows edematous count of 18.2 which is essentially compared to yesterday, with a hemoglobin of 8.8 and a platelet count of 706. Sodium is at 1:30, bicarb is at 21, BUN is a 50 with a creatinine of 0.6. CRP level is down to 1.1. The patient remains on 3 L of oxygen by nasal cannula. The patient is on IV Rocephin still, Decadron 6 in the grams IV every 24 hours and she is also on long-term anticoagulation with Xarelto. Rest of the medication were also reviewed. Objective - Vital Signs Vital signs: Vital Signs Temp 97.9 F 05/03/23 08:09 Pulse 94 05/03/23 08:09 Resp 19 05/03/23 08:09 BP 119/72 05/03/23 08:09 Pulse Ox 95 05/03/23 08:09 FiO2 Intake & Output 05/02/23 05/03/23 05/03/23 18:59 06:59 18:59 Output Total 950 500 Balance -950 -500 Output: Urine 950 500 Stool 0 Other: Voiding Method Diaper External Catheter External Catheter External Catheter # Voids 2 - Exam GENERAL EXAM: Alert, pleasant 82-year-old female, resting in bed, on 3 L nasal cannula, no acute distress. HEAD: Normocephalic and atraumatic EYES: Normal reaction of pupils, equal size. NOSE: Clear with pink turbinates. THROAT: No erythema or exudates. NECK: No masses, no JVD. CHEST: No chest wall deformity. LUNGS: Equal air entry with diminished bibasilar lung sounds few crackles right lung base. No wheezes or rhonchi. CVS: S1 and S2 normal with no audible murmur, regular rhythm. No extra heart sounds ABDOMEN: No hepatosplenomegaly, active bowel sounds, no guarding or rigidity. SPINE: No scoliosis or deformity SKIN: No rashes CENTRAL NERVOUS SYSTEM: No focal deficits, tone is normal in all 4 extremities. EXTREMITIES: There is no peripheral edema, clubbing, or cyanosis. Peripheral pulses are intact. - Labs CBC & Chem 7: 05/03/23 04:16 05/03/23 04:16 Labs: Abnormal Lab Results - Last 24 Hours (Table) 05/03/23 05/03/23 Range/Units 04:16 04:16 WBC 18.23 H (4.50-10.00) X 10*3/uL RBC 2.61 L (4.10-5.20) X 10*6/uL Hgb 8.8 L (12.0-15.0) g/dL Hct 27.1 L (37.2-46.3) % MCV 103.8 H (80.0-97.0) FL MCH 33.7 H (27.0-32.0) pg RDW 17.3 H (11.5-14.5) % Plt Count 706 H (140-440) X 10*3/uL MPV 9.1 L (9.5-12.2) FL Sodium 130 L (135-145) mmol/L Carbon Dioxide 21.1 L (21.6-31.8) mmol/L BUN/Creatinine Ratio 25.50 H (12.00-20.00) Ratio Calcium 8.3 L (8.7-10.3) mg/dL C-Reactive Protein 1.10 H (0.00-0.80) mg/dL Microbiology - Last 24 Hours (Table) 05/01/23 06:40 Gram Stain - Final Sputum Sputum Culture - Final 04/27/23 20:53 Blood Culture - Final Blood 04/27/23 20:47 Blood Culture - Final Blood Assessment and Plan Plan: Acute hypoxic respiratory failure, multifactorial. Patient is lung cancer receiving systemic chemotherapy. The patient also has COVID-19 infection. Procalcitonin level is elevated raising the concern for superinfection with bacteria. The patient is on IV Rocephin. The patient is also on steroids, clinically she is feeling better. She is having issues with cough. No significant shortness of breath Lung cancer diagnosed in outside facility and a CAT scan of the chest that showed volume loss in the right lung involving the right upper lobe and the right middle lobe in addition to partial collapse of the left lower lobe paratracheal and subcarinal lymphadenopathy.There is no obvious occlusion of the right mainstem bronchus based on the CAT scan findings causing significant atelectasis and there is lymphadenopathy within the mediastinum as mentioned. Persistent cough secondary to above Hyperlipidemia Hypothyroidism Remote history of smoking Acute leukocytosis secondary to above Day of CVA and the patient will maintain on anticoagulation with Xarelto. Plan Clinically improving and the patient is currently on 3 L which was further weaned down to room air oxygen. The white cell count remains elevated at 18 Continue IV Rocephin Continue Decadron continue anticoagulation with Xarelto Continue Decadron
[2023-05-03] MEDS: ALBUTEROL HFA INHALER INHALATION PRN ×2 (12:21→16:41)
--- NOTE | 2023-05-03 13:03 | P.PN ---
Subjective Progress Note Date: 05/03/23 82-year-old lady with past medical significant for lung cancer brought to the ER for generalized weakness. Patient stated that she has not been feeling herself in the last few days. Patient has been complaining of generalized weakness and fatigue. Patient did test positive for COVID-19 one week back. Patient has been complaining of cough and shortness of breath. Cough is productive. Denies any chest pain or palpitation. There is orthopnea or pnd. No complete of fever or chills at home. Patient has been complaining of decreased appetite. Because of the symptoms, patient came to the ER Initial lab work done in the ER showed WBC 25.9, hemoglobin 10.8, platelet count 452, sodium 131, potassium 4.1, BUN 14.7, creatinine 0.6, AST 70, ALT 165, CRP 21.6 UA negative for infection Influenza A not detected Influenza B not detected RSV not detected COVID-19 detected Chest x-ray done in the ER showed large pleural fluid election with right lower lobe consolidation CT chest done showed consolidation and mucous plugging throughout the right upper and middle lobes. Mucous plugging and collapse of the right lower lobe Patient admitted to internal medicine service 04/29/2023 Patient is seen in follow up today being followed by pulmonary and infectious disease. Patient with recent covid 19 and concerns for pneumonia and with significant hx of lung Ca. Patient is afebrile and continued on 6L and recommend weaning FI02 as tolerated. Patient with overall weakness and being evaluated by PT/OT with possible ecf being planned. Patient needs encouragement with meals and increased activity as tolerated. IV abx in the form of ceftriaxone and zithromax to continue. 04/30/2023 Patient is seen in follow-up this morning continues to be extremely weak maintained on 6 L reporting shortness of breath. Patient is extremely frail and thin built and appears elderly and ill-appearing. Patient is somewhat eating and needs encouragement. Patient also continued on IV antibiotics with infectious disease following as well as pulmonary. Patient is currently afebrile with no reported chest pain or palpitations. 05/01/2023: Patient seen and evaluated bedside, patient been treated for Covid, patient on 6 L of oxygen, son at bedside as well. Patient states breathing has improved denies fever, chills, chest pain, hemoptysis 05/02/2023: Patient seen and evaluated bedside, family at bedside as well, significant improvement noted patient's her breathing better chest x-ray has improved as well right ear discomfort has improved continue to use eardrops continue with current medical management 05/03/2023: Patient seen and evaluated bedside, patient breathing has improved, white cell count remains elevated likely from steroid. Continue current management including steroids, oxygen supplementation, breathing treatments right ear discomfort has resolved. Grandson at bedside explained K plan. Patient does complain of generalized weakness PHYSICAL EXAMINATION: GENERAL: The patient is alert and oriented x3, ill appearance, nasal cannula in place, thin built HEENT: Pupils are round and equally reacting to light. EOMI. No scleral icterus. No conjunctival pallor. Normocephalic, atraumatic. No pharyngeal erythema. No thyromegaly. CARDIOVASCULAR: S1 and S2 present. No murmurs, rubs, or gallops. PULMONARY: Decreased breath sounds bilaterally no crackles audible ABDOMEN: Soft, nontender, nondistended, normoactive bowel sounds. No palpable organomegaly. MUSCULOSKELETAL: No joint swelling or deformity. EXTREMITIES: No cyanosis, clubbing, or pedal edema. NEUROLOGICAL: Gross neurological examination did not reveal any focal deficits. Objective - Vital Signs Vital signs: Vital Signs Temp 97.9 F 05/03/23 08:09 Pulse 94 05/03/23 08:09 Resp 19 05/03/23 08:09 BP 119/72 05/03/23 08:09 Pulse Ox 95 05/03/23 08:09 FiO2 Intake & Output 05/02/23 05/03/23 05/03/23 18:59 06:59 18:59 Output Total 950 500 Balance -950 -500 Output: Urine 950 500 Stool 0 Other: Voiding Method Diaper External Catheter External Catheter External Catheter # Voids 2 - Labs CBC & Chem 7: 05/03/23 04:16 05/03/23 04:16 Labs: Abnormal Lab Results - Last 24 Hours (Table) 05/03/23 05/03/23 Range/Units 04:16 04:16 WBC 18.23 H (4.50-10.00) X 10*3/uL RBC 2.61 L (4.10-5.20) X 10*6/uL Hgb 8.8 L (12.0-15.0) g/dL Hct 27.1 L (37.2-46.3) % MCV 103.8 H (80.0-97.0) FL MCH 33.7 H (27.0-32.0) pg RDW 17.3 H (11.5-14.5) % Plt Count 706 H (140-440) X 10*3/uL MPV 9.1 L (9.5-12.2) FL Sodium 130 L (135-145) mmol/L Carbon Dioxide 21.1 L (21.6-31.8) mmol/L BUN/Creatinine Ratio 25.50 H (12.00-20.00) Ratio Calcium 8.3 L (8.7-10.3) mg/dL C-Reactive Protein 1.10 H (0.00-0.80) mg/dL Microbiology - Last 24 Hours (Table) 05/01/23 06:40 Gram Stain - Final Sputum Sputum Culture - Final 04/27/23 20:53 Blood Culture - Final Blood 04/27/23 20:47 Blood Culture - Final Blood Assessment and Plan Assessment: Assessment and plan * Acute hypoxic respiratory failure multifactorial secondary to Covid 19, underlying lung cancer and superimposed bacterial pneumonia * Acute metabolic encephalopathy improved * Protein calorie malnutrition moderate * Hypothyroidism * Sepsis secondary to pneumonia and Covid * In regards to respiratory failure continue patient on oxygen supplementation him a continue IV antibiotics including Rocephin to complete 5 day course, continue breathing treatments * In regards to Covid 19 continue supplementation with cirrhosis even dexamethasone, Tessalon Perles, albuterol. Anticoagulated on XARELTO * In regards to hypothyroid continue Synthyroid * In regards to sepsis secondary to underlying pneumonia and Covid blood cultures collected remain negative continue IV Rocephin day 6 Time with Patient: Greater than 30
[2023-05-03] MEDS: ALPRAZolam 0.5 MG TAB PO PRN (14:27)
[2023-05-03] MEDS: guaiFENesin SYRUP 100MG/5ML 200 MG/10 ML CUP PO PRN ×2 (14:27→20:49)
[2023-05-03] MEDS: SODIUM CHLORIDE 0.9% 1,000 ML IV SCH (16:17)
[2023-05-03] MEDS: ATORVASTATIN 10 MG TAB PO SCH (20:48)
[2023-05-03] MEDS: CHOLECALCIFEROL 25 MCG (1000 IU) TABLET PO SCH (20:48)
[2023-05-03] MEDS: ASCORBIC ACID 500 MG TAB PO SCH (20:48)
[2023-05-03] MEDS: CALCIUM CARBONATE 500 MG CHEWABLE PO SCH (20:49)
[2023-05-03] MEDS: FLUTICASONE 50MCG/SPRAY NASAL 16GM EA NOSTRIL SCH (20:49)
[2023-05-04] MEDS: BENZONATATE 100 MG CAP PO PRN ×2 (06:01→20:14)
[2023-05-04] MEDS: traMADol 50 MG TAB PO PRN ×2 (06:01→23:35)
[2023-05-04] MEDS: PANTOPRAZOLE 40 MG TABLET PO SCH (06:01)
[2023-05-04] MEDS: LEVOTHYROXINE 88 MCG TAB PO SCH (06:44)
[2023-05-04] MEDS: ALPRAZolam 0.5 MG TAB PO PRN ×2 (06:44→20:14)
[2023-05-04] MEDS: polyethylene glycoL 3350 17 GM POWD.PACK PO SCH (08:00)
[2023-05-04] MEDS: MEGESTROL 400 MG/10 ML CUP PO SCH (08:00)
[2023-05-04] MEDS: SERTRALINE 50 MG TAB PO SCH (08:00)
[2023-05-04] MEDS: ASPIRIN 81 MG PO SCH (08:00)
[2023-05-04] MEDS: LORATADINE 10 MG TAB PO SCH (08:00)
[2023-05-04] MEDS: DEXAMETHASONE SOD PHOSPHATE 10 MG/ML 1 ML VIAL IVP SCH (08:01)
[2023-05-04] MEDS: RIVAROXABAN 20 MG TAB PO SCH (08:02)
[2023-05-04] MEDS: CARBAMIDE PEROXIDE 6.5% DROPS 15 ML BTL RIGHT EAR SCH ×2 (08:02→20:15)
[2023-05-04] MEDS: guaiFENesin SYRUP 100MG/5ML 200 MG/10 ML CUP PO PRN (08:09)
--- NOTE | 2023-05-04 08:20 | XR ---
EXAMINATION TYPE: XR chest 1V DATE OF EXAM: 05/04/2023 6:57 AM CLINICAL INDICATION:Female, 82 years old with history of Lung cancer; [facility] COMPARISON: Chest radiograph from two days prior. TECHNIQUE: XR chest 1V Frontal view of the chest. FINDINGS: Rotated exam Lungs/Pleura: similar large right pleural effusion with associated atelectasis. Left lung is relative ly clear. No evidence for pneumothorax. Pulmonary vascularity: Unremarkable. Heart/mediastinum: Cardiomediastinal silhouette is partially obscured due to overlying and adjacent o pacities. Musculoskeletal: No acute osseous pathology. Other findings: None IMPRESSION: Similar large right pleural effusion with associated atelectasis. There is elevated right diaphragm.
[2023-05-04] MEDS: ACETAMINOPHEN TAB 500 MG TAB PO PRN ×2 (10:25→18:38)
[2023-05-04 10:45] LABS: HCT 27.4 % (37.2-46.3); HGB 8.7 g/dL (12.0-15.0); MCH 32.8 pg (27.0-32.0); MCHC 31.8 g/dL (32.0-37.0); MCV 103.4 FL (80.0-97.0); Mean Platelet Volume 8.9 FL (9.5-12.2); NRBC Per 100 WBC 0 X 10*3/uL (0.00-0.01); Platelet Count 710 X 10*3/uL (140-440); RBC 2.65 X 10*6/uL (4.10-5.20); RDW 17.5 % (11.5-14.5); WBC 17.12 X 10*3/uL (4.50-10.00)
[2023-05-04] MEDS: SODIUM CHLORIDE 0.9% 1,000 ML IV SCH (11:12)
[2023-05-04 11:16] LABS: BUN/Creat Ratio 20.33 Ratio (12.00-20.00); Blood Urea Nitrogen 12.2 mg/dL (9.0-27.0); Calcium 8.4 mg/dL (8.7-10.3); Carbon Dioxide 21.3 mmol/L (21.6-31.8); Chloride 99 mmol/L (96-109); Glucose 85 mg/dL (70-110); Potassium 4.2 mmol/L (3.5-5.5); Sodium 132 mmol/L (135-145)
[2023-05-04] MEDS: ALBUTEROL HFA INHALER INHALATION PRN (12:48)
--- NOTE | 2023-05-04 13:00 | P.PN ---
Subjective Progress Note Date: 05/03/23 Principal diagnosis: reason for follow-up is COVID-19 and pneumonia Patient is a 82-year-old female with a past medical history significant for lung cancer CVA TIA reflux pneumonia patient was brought into the hospital for evaluation generalized weakness apparently the patient did tested positive at home about a week ago for COVID-19 infection and the patient has been getting sick over the last few days, CT of the chest with consolidation and mucous plugging throughout the right upper and middle lobe concerning for possible pneumonia. On today's evaluation that is 05/03/2023, the patient continues to be afebrile patient is breathing comfortably on 3 L nasal cannula supplemental oxygen the patient denies chest pain did have occasional cough no sputum production patient denies abdominal pain no nausea no vomiting and no diarrhea has been reported Patient did have white count is down to 18.23, creatinine is 0.6, procalcitonin is 5.58 blood cultures so far negative, sputum cultures pending Objective - Vital Signs Vital signs: Vital Signs Temp 97.9 F 05/03/23 08:09 Pulse 94 05/03/23 08:09 Resp 19 05/03/23 08:09 BP 119/72 05/03/23 08:09 Pulse Ox 95 05/03/23 08:09 FiO2 Intake & Output 05/02/23 05/03/23 05/03/23 18:59 06:59 18:59 Output Total 950 500 Balance -950 -500 Output: Urine 950 500 Stool 0 Other: Voiding Method Diaper External Catheter External Catheter External Catheter # Voids 2 - Exam GENERAL DESCRIPTION: An elderly female lying in bed in no distress RESPIRATORY SYSTEM: Unlabored breathing , decreased breath sounds at bases HEART: S1 S2 regular rate and rhythm , ABDOMEN: Soft , no tenderness EXTREMITIES: No edema feet - Labs CBC & Chem 7: 05/04/23 06:10 05/04/23 06:10 Labs: Abnormal Lab Results - Last 24 Hours (Table) 05/03/23 05/03/23 Range/Units 04:16 04:16 WBC 18.23 H (4.50-10.00) X 10*3/uL RBC 2.61 L (4.10-5.20) X 10*6/uL Hgb 8.8 L (12.0-15.0) g/dL Hct 27.1 L (37.2-46.3) % MCV 103.8 H (80.0-97.0) FL MCH 33.7 H (27.0-32.0) pg RDW 17.3 H (11.5-14.5) % Plt Count 706 H (140-440) X 10*3/uL MPV 9.1 L (9.5-12.2) FL Sodium 130 L (135-145) mmol/L Carbon Dioxide 21.1 L (21.6-31.8) mmol/L BUN/Creatinine Ratio 25.50 H (12.00-20.00) Ratio Calcium 8.3 L (8.7-10.3) mg/dL C-Reactive Protein 1.10 H (0.00-0.80) mg/dL Microbiology - Last 24 Hours (Table) 05/01/23 06:40 Gram Stain - Final Sputum Sputum Culture - Final 04/27/23 20:53 Blood Culture - Final Blood 04/27/23 20:47 Blood Culture - Final Blood Assessment and Plan (1) Leukocytosis Current Visit: Yes Status: Acute Code(s): D72.829 - ELEVATED WHITE BLOOD CELL COUNT, UNSPECIFIED SNOMED Code(s): 964591279 (2) Allergy to sulfa drugs Current Visit: Yes Status: Acute Code(s): Z88.2 - ALLERGY STATUS TO SULFONAMIDES SNOMED Code(s): 68933603 (3) COVID-19 Current Visit: Yes Status: Acute Priority: High Code(s): U07.1 - COVID-19 SNOMED Code(s): 808405260 (4) Pneumonia Current Visit: Yes Status: Acute Priority: High Code(s): J18.9 - PNEUMONIA, UNSPECIFIED ORGANISM SNOMED Code(s): 456045008 Plan: 1patient presented to the hospital with increasing weakness and this patient tested positive for COVID-19 about a week ago now presenting to the hospital with increasing weakness cough patient did have elevated white count and CT of the chest that shows consolidation and mucous plugging throughout the right upper and lower lobe concerning for secondary bacterial pneumonia 2patient did have elevated CRP and a procalcitonin, sputum culture obtained currently pending blood culture so far negative 3patient is slowly clinical improving patient white count is trending down. 4patient to continue Rocephin and monitor clinical course closely Thank you for this consultation we will follow the patient along with you
--- NOTE | 2023-05-04 13:01 | P.PN ---
Subjective Progress Note Date: 05/04/23 Principal diagnosis: reason for follow-up is COVID-19 and pneumonia Patient is a 82-year-old female with a past medical history significant for lung cancer CVA TIA reflux pneumonia patient was brought into the hospital for evaluation generalized weakness apparently the patient did tested positive at home about a week ago for COVID-19 infection and the patient has been getting sick over the last few days, CT of the chest with consolidation and mucous plugging throughout the right upper and middle lobe concerning for possible pneumonia. On today's evaluation that is 05/04/2023, the patient remains to be afebrile patient is breathing comfortably on 3 L nasal cannula oxygen, the patient denies chest pain, the patient cough has decreased in intensity with occasional sputum production patient denies abdominal pain no nausea no vomiting and no diarrhea has been reported Patient did have white count is down to 17.12, creatinine is 0.6, procalcitonin is 5.58 blood cultures so far negative, sputum cultures negative Objective - Vital Signs Vital signs: Vital Signs Temp 97.5 F L 05/04/23 07:53 Pulse 95 05/04/23 07:53 Resp 20 05/04/23 09:10 BP 105/71 05/04/23 07:53 Pulse Ox 93 L 05/04/23 07:53 FiO2 Intake & Output 05/03/23 05/04/23 05/04/23 18:59 06:59 18:59 Intake Total 180 Balance 180 Intake: Oral 180 Other: Voiding Method External Catheter External Catheter External Catheter # Voids 3 # Bowel Movements 3 - Exam GENERAL DESCRIPTION: An elderly female lying in bed in no distress RESPIRATORY SYSTEM: Unlabored breathing , decreased breath sounds at bases HEART: S1 S2 regular rate and rhythm , ABDOMEN: Soft , no tenderness EXTREMITIES: No edema feet - Labs CBC & Chem 7: 05/04/23 06:10 05/04/23 06:10 Labs: Abnormal Lab Results - Last 24 Hours (Table) 05/04/23 05/04/23 Range/Units 06:10 06:10 WBC 17.12 H (4.50-10.00) X 10*3/uL RBC 2.65 L (4.10-5.20) X 10*6/uL Hgb 8.7 L (12.0-15.0) g/dL Hct 27.4 L (37.2-46.3) % MCV 103.4 H (80.0-97.0) FL MCH 32.8 H (27.0-32.0) pg MCHC 31.8 L (32.0-37.0) g/dL RDW 17.5 H (11.5-14.5) % Plt Count 710 H (140-440) X 10*3/uL MPV 8.9 L (9.5-12.2) FL Sodium 132 L (135-145) mmol/L Carbon Dioxide 21.3 L (21.6-31.8) mmol/L BUN/Creatinine Ratio 20.33 H (12.00-20.00) Ratio Calcium 8.4 L (8.7-10.3) mg/dL Microbiology - Last 24 Hours (Table) 05/01/23 06:40 Gram Stain - Final Sputum Sputum Culture - Final 04/27/23 20:53 Blood Culture - Final Blood Assessment and Plan (1) Leukocytosis Current Visit: Yes Status: Acute Code(s): D72.829 - ELEVATED WHITE BLOOD CELL COUNT, UNSPECIFIED SNOMED Code(s): 572367406 (2) Allergy to sulfa drugs Current Visit: Yes Status: Acute Code(s): Z88.2 - ALLERGY STATUS TO SULFO NAMIDES SNOMED Code(s): 14811711 (3) COVID-19 Current Visit: Yes Status: Acute Priority: High Code(s): U07.1 - COVID-19 SNOMED Code(s): 138255215 (4) Pneumonia Current Visit: Yes Status: Acute Priority: High Code(s): J18.9 - PNEUMONIA, UNSPECIFIED ORGANISM SNOMED Code(s): 287200530 Plan: 1patient presented to the hospital with increasing weakness and this patient tested positive for COVID-19 about a week ago now presenting to the hospital with increasing weakness cough patient did have elevated white count and CT of the chest that shows consolidation and mucous plugging throughout the right upper and lower lobe concerning for secondary bacterial pneumonia 2patient did have elevated CRP and a procalcitonin, sputum culture obtained currently pending blood culture so far negative 3patient has shown clinical improvement patient white count is trending down. Patient covered with a Rocephin transitioned over antibiotics on discharge Son at the bedside questions were answered Thank you for this consultation we will follow the patient along with you Time with Patient: Less than 30
--- NOTE | 2023-05-04 13:04 | P.PN ---
Subjective Progress Note Date: 05/04/23 82-year-old lady with past medical significant for lung cancer brought to the ER for generalized weakness. Patient stated that she has not been feeling herself in the last few days. Patient has been complaining of generalized weakness and fatigue. Patient did test positive for COVID-19 one week back. Patient has been complaining of cough and shortness of breath. Cough is productive. Denies any chest pain or palpitation. There is orthopnea or pnd. No complete of fever or chills at home. Patient has been complaining of decreased appetite. Because of the symptoms, patient came to the ER Initial lab work done in the ER showed WBC 25.9, hemoglobin 10.8, platelet count 452, sodium 131, potassium 4.1, BUN 14.7, creatinine 0.6, AST 70, ALT 165, CRP 21.6 UA negative for infection Influenza A not detected Influenza B not detected RSV not detected COVID-19 detected Chest x-ray done in the ER showed large pleural fluid election with right lower lobe consolidation CT chest done showed consolidation and mucous plugging throughout the right upper and middle lobes. Mucous plugging and collapse of the right lower lobe Patient admitted to internal medicine service 04/29/2023 Patient is seen in follow up today being followed by pulmonary and infectious disease. Patient with recent covid 19 and concerns for pneumonia and with significant hx of lung Ca. Patient is afebrile and continued on 6L and recommend weaning FI02 as tolerated. Patient with overall weakness and being evaluated by PT/OT with possible ecf being planned. Patient needs encouragement with meals and increased activity as tolerated. IV abx in the form of ceftriaxone and zithromax to continue. 04/30/2023 Patient is seen in follow-up this morning continues to be extremely weak maintained on 6 L reporting shortness of breath. Patient is extremely frail and thin built and appears elderly and ill-appearing. Patient is somewhat eating and needs encouragement. Patient also continued on IV antibiotics with infectious disease following as well as pulmonary. Patient is currently afebrile with no reported chest pain or palpitations. 05/01/2023: Patient seen and evaluated bedside, patient been treated for Covid, patient on 6 L of oxygen, son at bedside as well. Patient states breathing has improved denies fever, chills, chest pain, hemoptysis 05/02/2023: Patient seen and evaluated bedside, family at bedside as well, significant improvement noted patient's her breathing better chest x-ray has improved as well right ear discomfort has improved continue to use eardrops continue with current medical management 05/03/2023: Patient seen and evaluated bedside, patient breathing has improved, white cell count remains elevated likely from steroid. Continue current management including steroids, oxygen supplementation, breathing treatments right ear discomfort has resolved. Grandson at bedside explained K plan. Patient does complain of generalized weakness 05/04/2023: Patient seen and evaluated bedside. During assessment patient is alert and oriented 3, nasal cannula in place, son at bedside. Leukocytosis WBC count 17.2 hemoglobin 8.7 platelet 710. CRP yesterday was 1.1 continued to have ill appearance will need discharge to subacute rehab PHYSICAL EXAMINATION: GENERAL: The patient is alert and oriented x3, ill appearance, nasal cannula in place, thin built HEENT: Pupils are round and equally reacting to light. EOMI. No scleral icterus. No conjunctival pallor. Normocephalic, atraumatic. No pharyngeal erythema. No thyromegaly. CARDIOVASCULAR: S1 and S2 present. No murmurs, rubs, or gallops. PULMONARY: Decreased breath sounds bilaterally no crackles audible ABDOMEN: Soft, nontender, nondistended, normoactive bowel sounds. No palpable organomegaly. MUSCULOSKELETAL: No joint swelling or deformity. EXTREMITIES: No cyanosis, clubbing, or pedal edema. NEUROLOGICAL: Gross neurological examination did not reveal any focal deficits. Objective - Vital Signs Vital signs: Vital Signs Temp 97.5 F L 05/04/23 07:53 Pulse 95 05/04/23 07:53 Resp 20 05/04/23 09:10 BP 105/71 05/04/23 07:53 Pulse Ox 93 L 05/04/23 07:53 FiO2 Intake & Output 05/03/23 05/04/23 05/04/23 18:59 06:59 18:59 Intake Total 180 Balance 180 Intake: Oral 180 Other: Voiding Method External Catheter External Catheter External Catheter # Voids 3 # Bowel Movements 3 - Labs CBC & Chem 7: 05/04/23 06:10 05/04/23 06:10 Labs: Abnormal Lab Results - Last 24 Hours (Table) 05/04/23 05/04/23 Range/Units 06:10 06:10 WBC 17.12 H (4.50-10.00) X 10*3/uL RBC 2.65 L (4.10-5.20) X 10*6/uL Hgb 8.7 L (12.0-15.0) g/dL Hct 27.4 L (37.2-46.3) % MCV 103.4 H (80.0-97.0) FL MCH 32.8 H (27.0-32.0) pg MCHC 31.8 L (32.0-37.0) g/dL RDW 17.5 H (11.5-14.5) % Plt Count 710 H (140-440) X 10*3/uL MPV 8.9 L (9.5-12.2) FL Sodium 132 L (135-145) mmol/L Carbon Dioxide 21.3 L (21.6-31.8) mmol/L BUN/Creatinine Ratio 20.33 H (12.00-20.00) Ratio Calcium 8.4 L (8.7-10.3) mg/dL Microbiology - Last 24 Hours (Table) 05/01/23 06:40 Gram Stain - Final Sputum Sputum Culture - Final 04/27/23 20:53 Blood Culture - Final Blood Assessment and Plan Assessment: Assessment and plan * Acute hypoxic respiratory failure multifactorial secondary to Covid 19, underlying lung cancer and superimposed bacterial pneumonia * Acute metabolic encephalopathy improved * Protein calorie malnutrition moderate * Hypothyroidism * Sepsis secondary to pneumonia and Covid * In regards to respiratory failure continue patient on oxygen supplementation him a continue IV antibiotics including Rocephin , continue breathing treatments * In regards to Covid 19 continue supplementation with cirrhosis even dexamethasone, Tessalon Perles, albuterol. Anticoagulated on XARELTO * In regards to hypothyroid continue Synthyroid * In regards to sepsis secondary to underlying pneumonia and Covid blood cultures collected remain negative continue IV Rocephin day 7 * Patient will need discharge to subacute rehab
--- NOTE | 2023-05-04 13:34 | P.PN ---
Subjective Progress Note Date: 05/04/23 05/03/2023, I am seeing the patient in follow-up regarding acute hypoxic respiratory failure. The patient's respiratory failure was secondary to COVID- 19 infection/pneumonia and suspected superimposed bacterial pneumonia in addition to underlying primary lung cancer. The patient has been in the hospital for at least a week and a CAT scan of the chest was done showed volume loss on the right with collapse of the right upper lobe and the middle lobes and minimal aeration in the right lower lobe. There is also some consolidation versus malignancy and a partial collapse of the left lower lobe and evidence of paratracheal and subcarinal lymphadenopathy. Patient has been diagnosed having lung cancer in [place] in [place] under the care of Dr. Mckeon. The patienthan is on Decadron. The patient is on IV Rocephin. Sitting up in a chair. Note that the patient tested positive for COVID-19 prior to her hospital admission and she has been taking systemic chemotherapy regarding her lung cancer. In regards to COVID-19, this is her initial infection and the patient not sure if she has taken any vaccination. Procalcitonin obtained with machine was at 5.58 which raised concern for superinfection. White cell count was also elevated at 25.8. There is no subsequent drop in the white cell count. CRP level is at 1.7. Legionella urine antigen is negative. Electrolytes are stable. Renal function is stable. Blood work from today shows edematous count of 18.2 which is essentially compared to yesterday, with a hemoglobin of 8.8 and a platelet count of 706. Sodium is at 1:30, bicarb is at 21, BUN is a 50 with a creatinine of 0.6. CRP level is down to 1.1. The patient remains on 3 L of oxygen by nasal cannula. The patient is on IV Rocephin still, Decadron 6 in the grams IV every 24 hours and she is also on long-term anticoagulation with Xarelto. Rest of the medication were also reviewed. On today's evaluation of 05/04/2023, seeing the patient for a follow-up. Patient is quite debilitated. Denies having any major improvement since yesterday. She is on oxygen at 4 L. She has metastatic lung cancer as discussed earlier and the patient was given systemic chemotherapy to be followed up by immunotherapy. She got infected with Covid 19 and the patient remains on steroids and the patient is currently on Decadron 6 mg IV every 24 hours. Her appetite is poor. She is weak. She sounds quite debilitated. She is afebrile. She remains on oxygen at 3 L. The echoes at 17, hemoglobin of 8.7, and the patient is a BUN of 12 with a creatinine of 0.6 and the sodium levels of 132. Potassium levels at 4.2. No new complaints. Very much debilitated at this point in time. Objective - Vital Signs Vital signs: Vital Signs Temp 97.5 F L 05/04/23 07:53 Pulse 95 05/04/23 07:53 Resp 20 05/04/23 09:10 BP 105/71 05/04/23 07:53 Pulse Ox 93 L 05/04/23 07:53 FiO2 Intake & Output 05/03/23 05/04/23 05/04/23 18:59 06:59 18:59 Other: Voiding Method External Catheter External Catheter External Catheter # Voids 3 # Bowel Movements 3 - Exam GENERAL EXAM: Alert, pleasant 82-year-old female, resting in bed, on 3 L nasal cannula, no acute distress. HEAD: Normocephalic and atraumatic EYES: Normal reaction of pupils, equal size. NOSE: Clear with pink turbinates. THROAT: No erythema or exudates. NECK: No masses, no JVD. CHEST: No chest wall deformity. LUNGS: Equal air entry with diminished bibasilar lung sounds few crackles right lung base. No wheezes or rhonchi. CVS: S1 and S2 normal with no audible murmur, regular rhythm. No extra heart sounds ABDOMEN: No hepatosplenomegaly, active bowel sounds, no guarding or rigidity. SPINE: No scoliosis or deformity SKIN: No rashes CENTRAL NERVOUS SYSTEM: No focal deficits, tone is normal in all 4 extremities. EXTREMITIES: There is no peripheral edema, clubbing, or cyanosis. Peripheral pulses are intact. - Labs CBC & Chem 7: 05/04/23 06:10 05/04/23 06:10 Labs: Abnormal Lab Results - Last 24 Hours (Table) 05/04/23 05/04/23 Range/Units 06:10 06:10 WBC 17.12 H (4.50-10.00) X 10*3/uL RBC 2.65 L (4.10-5.20) X 10*6/uL Hgb 8.7 L (12.0-15.0) g/dL Hct 27.4 L (37.2-46.3) % MCV 103.4 H (80.0-97.0) FL MCH 32.8 H (27.0-32.0) pg MCHC 31.8 L (32.0-37.0) g/dL RDW 17.5 H (11.5-14.5) % Plt Count 710 H (140-440) X 10*3/uL MPV 8.9 L (9.5-12.2) FL Sodium 132 L (135-145) mmol/L Carbon Dioxide 21.3 L (21.6-31.8) mmol/L BUN/Creatinine Ratio 20.33 H (12.00-20.00) Ratio Calcium 8.4 L (8.7-10.3) mg/dL Microbiology - Last 24 Hours (Table) 05/01/23 06:40 Gram Stain - Final Sputum Sputum Culture - Final 04/27/23 20:53 Blood Culture - Final Blood Assessment and Plan Plan: Acute hypoxic respiratory failure, multifactorial. Patient is lung cancer receiving systemic chemotherapy. The patient also has COVID-19 infection. Procalcitonin level is elevated raising the concern for superinfection with bacteria. The patient is on IV Rocephin. The patient is also on Decadron. Oxygen requirements remain unchanged and the patient is to 40 Suboxone by nasal cannula Lung cancer diagnosed in outside facility and a CAT scan of the chest that showed volume loss in the right lung involving the right upper lobe and the right middle lobe in addition to partial collapse of the left lower lobe paratracheal and subcarinal lymphadenopathy.There is no obvious occlusion of the right mainstem bronchus based on the CAT scan findings causing significant atelectasis and there is lymphadenopathy within the mediastinum as mentioned. Persistent cough secondary to above Shortness of breath secondary to above Chronic debility and generalized weakness and diminished appetite further complicated by Covid 19 infection. Hyperlipidemia Hypothyroidism Remote history of smoking Acute leukocytosis secondary to above Day of CVA and the patient will maintain on anticoagulation with Xarelto. Plan overall condition is stable, yet no major improvement since yesterday. The white cell count remains elevated at 17 Continue IV Rocephin Continue Decadron continue anticoagulation with Xarelto Continue Decadron Prognosis poor based on the presence of metastatic lung cancer with significant mass effect on the right main stem bronchus and multilobar lung collapse. Recommend establishing or status. Prognosis poor based above-mentioned comorbid ities.
[2023-05-04 15:22] VITALS: BMI 19.3
[2023-05-04] MEDS: MAG HYDROX/AL HYDROX/SIMETH 30 ML CUP PO PRN (20:14)
[2023-05-04] MEDS: CHOLECALCIFEROL 25 MCG (1000 IU) TABLET PO SCH (20:14)
[2023-05-04] MEDS: CALCIUM CARBONATE 500 MG CHEWABLE PO SCH (20:14)
[2023-05-04] MEDS: ATORVASTATIN 10 MG TAB PO SCH (20:14)
[2023-05-04] MEDS: ASCORBIC ACID 500 MG TAB PO SCH (20:14)
[2023-05-04] MEDS: FLUTICASONE 50MCG/SPRAY NASAL 16GM EA NOSTRIL SCH (20:15)
[2023-05-05] MEDS: ACETAMINOPHEN TAB 500 MG TAB PO PRN ×2 (06:21→13:04)
[2023-05-05] MEDS: PANTOPRAZOLE 40 MG TABLET PO SCH (06:21)
[2023-05-05] MEDS: LEVOTHYROXINE 75 MCG TAB PO SCH (06:21)
[2023-05-05] MEDS: guaiFENesin SYRUP 100MG/5ML 200 MG/10 ML CUP PO PRN ×2 (08:12→21:20)
[2023-05-05] MEDS: traMADol 50 MG TAB PO PRN (08:12)
[2023-05-05] MEDS: SERTRALINE 50 MG TAB PO SCH (08:13)
[2023-05-05] MEDS: ASPIRIN 81 MG PO SCH (08:13)
[2023-05-05] MEDS: LORATADINE 10 MG TAB PO SCH (08:14)
[2023-05-05] MEDS: polyethylene glycoL 3350 17 GM POWD.PACK PO SCH (08:14)
[2023-05-05] MEDS: MEGESTROL 400 MG/10 ML CUP PO SCH (08:15)
[2023-05-05] MEDS: CARBAMIDE PEROXIDE 6.5% DROPS 15 ML BTL RIGHT EAR SCH ×2 (08:16→21:21)
[2023-05-05] MEDS: RIVAROXABAN 20 MG TAB PO SCH (08:17)
[2023-05-05] MEDS: DEXAMETHASONE SOD PHOSPHATE 10 MG/ML 1 ML VIAL IVP SCH (08:17)
[2023-05-05] MEDS: ZINC OXIDE PASTE (Z-GUARD) 1 APPLIC TOPICAL PRN (08:34)
[2023-05-05 08:39] LABS: HCT 25.4 % (37.2-46.3); HGB 8.3 g/dL (12.0-15.0); MCH 34.2 pg (27.0-32.0); MCHC 32.7 g/dL (32.0-37.0); MCV 104.5 FL (80.0-97.0); Mean Platelet Volume 8.9 FL (9.5-12.2); NRBC Per 100 WBC 0 X 10*3/uL (0.00-0.01); Platelet Count 633 X 10*3/uL (140-440); RBC 2.43 X 10*6/uL (4.10-5.20); RDW 17.3 % (11.5-14.5)
[2023-05-05 09:17] LABS: Blood Urea Nitrogen 14.4 mg/dL (9.0-27.0); Calcium 8.1 mg/dL (8.7-10.3); Carbon Dioxide 20.6 mmol/L (21.6-31.8); Chloride 98 mmol/L (96-109); Glucose 93 mg/dL (70-110); Potassium 3.9 mmol/L (3.5-5.5); Sodium 131 mmol/L (135-145)
[2023-05-05] MEDS: ALBUTEROL HFA INHALER INHALATION PRN ×4 (09:28→21:00)
--- NOTE | 2023-05-05 12:30 | P.PN ---
Subjective Progress Note Date: 05/05/23 82-year-old lady with past medical significant for lung cancer brought to the ER for generalized weakness. Patient stated that she has not been feeling herself in the last few days. Patient has been complaining of generalized weakness and fatigue. Patient did test positive for COVID-19 one week back. Patient has been complaining of cough and shortness of breath. Cough is productive. Denies any chest pain or palpitation. There is orthopnea or pnd. No complete of fever or chills at home. Patient has been complaining of decreased appetite. Because of the symptoms, patient came to the ER Initial lab work done in the ER showed WBC 25.9, hemoglobin 10.8, platelet count 452, sodium 131, potassium 4.1, BUN 14.7, creatinine 0.6, AST 70, ALT 165, CRP 21.6 UA negative for infection Influenza A not detected Influenza B not detected RSV not detected COVID-19 detected Chest x-ray done in the ER showed large pleural fluid election with right lower lobe consolidation CT chest done showed consolidation and mucous plugging throughout the right upper and middle lobes. Mucous plugging and collapse of the right lower lobe Patient admitted to internal medicine service 04/29/2023 Patient is seen in follow up today being followed by pulmonary and infectious disease. Patient with recent covid 19 and concerns for pneumonia and with significant hx of lung Ca. Patient is afebrile and continued on 6L and recommend weaning FI02 as tolerated. Patient with overall weakness and being evaluated by PT/OT with possible ecf being planned. Patient needs encouragement with meals and increased activity as tolerated. IV abx in the form of ceftriaxone and zithromax to continue. 04/30/2023 Patient is seen in follow-up this morning continues to be extremely weak maintained on 6 L reporting shortness of breath. Patient is extremely frail and thin built and appears elderly and ill-appearing. Patient is somewhat eating and needs encouragement. Patient also continued on IV antibiotics with infectious disease following as well as pulmonary. Patient is currently afebrile with no reported chest pain or palpitations. 05/01/2023: Patient seen and evaluated bedside, patient been treated for Covid, patient on 6 L of oxygen, son at bedside as well. Patient states breathing has improved denies fever, chills, chest pain, hemoptysis 05/02/2023: Patient seen and evaluated bedside, family at bedside as well, significant improvement noted patient's her breathing better chest x-ray has improved as well right ear discomfort has improved continue to use eardrops continue with current medical management 05/03/2023: Patient seen and evaluated bedside, patient breathing has improved, white cell count remains elevated likely from steroid. Continue current management including steroids, oxygen supplementation, breathing treatments right ear discomfort has resolved. Grandson at bedside explained K plan. Patient does complain of generalized weakness 05/04/2023: Patient seen and evaluated bedside. During assessment patient is alert and oriented 3, nasal cannula in place, son at bedside. Leukocytosis WBC count 17.2 hemoglobin 8.7 platelet 710. CRP yesterday was 1.1 continued to have ill appearance will need discharge to subacute rehab 05/05/2023: Patient seen and evaluated bedside, patient oxygen requirements remained stable however continues to remain chronically ill will address code" status or family's prognosis remains poor secondary to underlying malignancy. WBC count 15.5, hemoglobin 8.3 sodium 131. CRP within normal limits no PHYSICAL EXAMINATION: GENERAL: The patient is alert and oriented x3, ill appearance, nasal cannula in place, thin built HEENT: Pupils are round and equally reacting to light. EOMI. No scleral icterus. No conjunctival pallor. Normocephalic, atraumatic. No pharyngeal erythema. No thyromegaly. CARDIOVASCULAR: S1 and S2 present. No murmurs, rubs, or gallops. PULMONARY: Decreased breath sounds bilaterally no crackles audible ABDOMEN: Soft, nontender, nondistended, normoactive bowel sounds. No palpable organomegaly. MUSCULOSKELETAL: No joint swelling or deformity. EXTREMITIES: No cyanosis, clubbing, or pedal edema. NEUROLOGICAL: Gross neurological examination did not reveal any focal deficits. Objective - Vital Signs Vital signs: Vital Signs Temp 97.6 F 05/05/23 07:21 Pulse 90 05/05/23 11:28 Resp 20 05/05/23 11:28 BP 122/61 05/05/23 07:21 Pulse Ox 97 05/05/23 07:21 FiO2 Intake & Output 05/04/23 05/05/23 05/05/23 18:59 06:59 18:59 Intake Total 680 100 Output Total 1000 250 Balance -320 -250 100 Weight 61.235 kg Intake: Oral 680 100 Output: Urine 1000 250 Other: Voiding Method External Catheter External Catheter External Catheter # Voids 1 - Labs CBC & Chem 7: 05/05/23 04:23 05/05/23 04:23 Labs: Abnormal Lab Results - Last 24 Hours (Table) 05/05/23 05/05/23 Range/Units 04:23 04:23 WBC 15.50 H (4.50-10.00) X 10*3/uL RBC 2.43 L (4.10-5.20) X 10*6/uL Hgb 8.3 L (12.0-15.0) g/dL Hct 25.4 L (37.2-46.3) % MCV 104.5 H (80.0-97.0) FL MCH 34.2 H (27.0-32.0) pg RDW 17.3 H (11.5-14.5) % Plt Count 633 H (140-440) X 10*3/uL MPV 8.9 L (9.5-12.2) FL Sodium 131 L (135-145) mmol/L Carbon Dioxide 20.6 L (21.6-31.8) mmol/L Anion Gap 12.40 H (4.00-12.00) mmol/L BUN/Creatinine Ratio 24.00 H (12.00-20.00) Ratio Calcium 8.1 L (8.7-10.3) mg/dL Assessment and Plan Assessment: Assessment and plan * Acute hypoxic respiratory failure multifactorial secondary to Covid 19, underlying lung cancer and superimposed bacterial pneumonia * Acute metabolic encephalopathy improved * Protein calorie malnutrition moderate * Hypothyroidism * Sepsis secondary to pneumonia and Covid * In regards to respiratory failure continue patient on oxygen supplementation him , IV antibiotics including Rocephin completed course , continue breathing treatments * In regards to Covid 19 continue supplementation with cirrhosis even dexamethasone, Tessalon Perles, albuterol. Anticoagulated on XARELTO * In regards to hypothyroid continue Synthyroid * In regards to sepsis secondary to underlying pneumonia and Covid blood cultures collected remain negative. Rocephin course completed * Patient will need discharge to subacute rehab Time with Patient: Greater than 30
--- NOTE | 2023-05-05 14:55 | P.PN ---
Subjective Progress Note Date: 05/05/23 05/03/2023, I am seeing the patient in follow-up regarding acute hypoxic respiratory failure. The patient's respiratory failure was secondary to COVID- 19 infection/pneumonia and suspected superimposed bacterial pneumonia in addition to underlying primary lung cancer. The patient has been in the hospital for at least a week and a CAT scan of the chest was done showed volume loss on the right with collapse of the right upper lobe and the middle lobes and minimal aeration in the right lower lobe. There is also some consolidation versus malignancy and a partial collapse of the left lower lobe and evidence of paratracheal and subcarinal lymphadenopathy. Patient has been diagnosed having lung cancer in [place] in [place] under the care of Dr. Mckeon. The patienthan is on Decadron. The patient is on IV Rocephin. Sitting up in a chair. Note that the patient tested positive for COVID-19 prior to her hospital admission and she has been taking systemic chemotherapy regarding her lung cancer. In regards to COVID-19, this is her initial infection and the patient not sure if she has taken any vaccination. Procalcitonin obtained with machine was at 5.58 which raised concern for superinfection. White cell count was also elevated at 25.8. There is no subsequent drop in the white cell count. CRP level is at 1.7. Legionella urine antigen is negative. Electrolytes are stable. Renal function is stable. Blood work from today shows edematous count of 18.2 which is essentially compared to yesterday, with a hemoglobin of 8.8 and a platelet count of 706. Sodium is at 1:30, bicarb is at 21, BUN is a 50 with a creatinine of 0.6. CRP level is down to 1.1. The patient remains on 3 L of oxygen by nasal cannula. The patient is on IV Rocephin still, Decadron 6 in the grams IV every 24 hours and she is also on long-term anticoagulation with Xarelto. Rest of the medication were also reviewed. On today's evaluation of 05/04/2023, seeing the patient for a follow-up. Patient is quite debilitated. Denies having any major improvement since yesterday. She is on oxygen at 4 L. She has metastatic lung cancer as discussed earlier and the patient was given systemic chemotherapy to be followed up by immunotherapy. She got infected with Covid 19 and the patient remains on steroids and the patient is currently on Decadron 6 mg IV every 24 hours. Her appetite is poor. She is weak. She sounds quite debilitated. She is afebrile. She remains on oxygen at 3 L. The echoes at 17, hemoglobin of 8.7, and the patient is a BUN of 12 with a creatinine of 0.6 and the sodium levels of 132. Potassium levels at 4.2. No new complaints. Very much debilitated at this point in time. On 05/05/2023, no major change in the patient's condition. Oral intake is quite diminished. The patient is currently on 3 L of oxygen by nasal cannula with a pulse ox of 95%. She has some limited shortness of breath even at rest. She has a weak cough. The white cycles of 15.5. The lymph node at 8.3, sodium was at 131, BUN is 40 with a creatinine of 0.6. She is obviously quite ill and debilitated related to her cancer and superinfection with Covid 19. I made recommendations to address the patient's CODE STATUS as the patient may further decompensated during this current hospitalization. She remains awake and she continues to communicate. No focal neurological deficit. No nausea or emesis abdominal distention. Objective - Vital Signs Vital signs: Vital Signs Temp 97.6 F 05/05/23 07:21 Pulse 90 05/05/23 07:21 Resp 19 05/05/23 07:21 BP 122/61 05/05/23 07:21 Pulse Ox 97 05/05/23 07:21 FiO2 Intake & Output 05/04/23 05/05/23 05/05/23 18:59 06:59 18:59 Intake Total 680 Output Total 1000 250 Balance -320 -250 Weight 61.235 kg Intake: Oral 680 Output: Urine 1000 250 Other: Voiding Method External Catheter External Catheter # Voids 1 - Exam GENERAL EXAM: Alert, pleasant 82-year-old female, resting in bed, on 3 L nasal cannula, no acute distress. HEAD: Normocephalic and atraumatic EYES: Normal reaction of pupils, equal size. NOSE: Clear with pink turbinates. THROAT: No erythema or exudates. NECK: No masses, no JVD. CHEST: No chest wall deformity. LUNGS: Equal air entry with diminished bibasilar lung sounds few crackles right lung base. No wheezes or rhonchi. CVS: S1 and S2 normal with no audible murmur, regular rhythm. No extra heart sounds ABDOMEN: No hepatosplenomegaly, active bowel sounds, no guarding or rigidity. SPINE: No scoliosis or deformity SKIN: No rashes CENTRAL NERVOUS SYSTEM: No focal deficits, tone is normal in all 4 extremities. EXTREMITIES: There is no peripheral edema, clubbing, or cyanosis. Peripheral pulses are intact. - Labs CBC & Chem 7: 05/05/23 04:23 05/05/23 04:23 Labs: Abnormal Lab Results - Last 24 Hours (Table) 05/04/23 05/05/23 05/05/23 Range/Units 06:10 04:23 04:23 WBC 15.50 H (4.50-10.00) X 10*3/uL RBC 2.43 L (4.10-5.20) X 10*6/uL Hgb 8.3 L (12.0-15.0) g/dL Hct 25.4 L (37.2-46.3) % MCV 104.5 H (80.0-97.0) FL MCH 34.2 H (27.0-32.0) pg RDW 17.3 H (11.5-14.5) % Plt Count 633 H (140-440) X 10*3/uL MPV 8.9 L (9.5-12.2) FL Sodium 132 L 131 L (135-145) mmol/L Carbon Dioxide 21.3 L 20.6 L (21.6-31.8) mmol/L Anion Gap 12.40 H (4.00-12.00) mmol/L BUN/Creatinine Ratio 20.33 H 24.00 H (12.00-20.00) Ratio Calcium 8.4 L 8.1 L (8.7-10.3) mg/dL Assessment and Plan Plan: Acute hypoxic respiratory failure, multifactorial. Patient is lung cancer receiving systemic chemotherapy. The patient also has COVID-19 infection. Procalcitonin level is elevated raising the concern for superinfection with bacteria. The patient is on IV Rocephin. The patient is also on Decadron. Oxygen requirements remain unchanged and the patient is to 3 L of oxygen by nasal cannula. The patient remains quite debilitated. She is weak. Oral intake is quite diminished. Lung cancer diagnosed in outside facility and a CAT scan of the chest that showed volume loss in the right lung involving the right upper lobe and the right middle lobe in addition to partial collapse of the left lower lobe paratracheal and subcarinal lymphadenopathy.There is no obvious occlusion of the right mainstem bronchus based on the CAT scan findings causing significant atelectasis and there is lymphadenopathy within the mediastinum as mentioned. Persistent cough secondary to above Shortness of breath secondary to above Chronic debility and generalized weakness and diminished appetite further complicated by Covid 19 infection. Hyperlipidemia Hypothyroidism Remote history of smoking Acute leukocytosis secondary to above Day of CVA and the patient will maintain on anticoagulation with Xarelto. Plan Repeat chest x-ray in the morning Limited progress overall condition is stable, yet no major improvement since yesterday. The white cell count remains elevated at 15 Continue IV Rocephin Continue Decadron continue anticoagulation with Xarelto Continue Decadron Prognosis poor based on the presence of metastatic lung cancer with significant mass effect on the right main stem bronchus and multilobar lung collapse. The medical team is going to address the advanced directive clinical status as the patient carries a very poor prognosis in general.
[2023-05-05] MEDS: SODIUM CHLORIDE 0.9% 1,000 ML IV SCH ×2 (15:16→16:00)
[2023-05-05] MEDS ORDERED: ALPRAZolam 0.5 MG TAB PO STA (16:06)
--- NOTE | 2023-05-05 17:24 | P.PN ---
Subjective Progress Note Date: 05/05/23 Principal diagnosis: reason for follow-up is COVID-19 and pneumonia Patient is a 82-year-old female with a past medical history significant for lung cancer CVA TIA reflux pneumonia patient was brought into the hospital for evaluation generalized weakness apparently the patient did tested positive at home about a week ago for COVID-19 infection and the patient has been getting sick over the last few days, CT of the chest with consolidation and mucous plugging throughout the right upper and middle lobe concerning for possible pneumonia. On today's evaluation that is 05/05/2023, the patient continues to be afebrile patient is breathing comfortably on 3 L nasal cannula supplemental oxygen, patient denies any chest pain, patient mention resolution of the cough and no sputum, no nausea no vomiting and no diarrhea has been reported Patient did have white count is down to 15.50, creatinine is 0.6, procalcitonin is 5.58 blood cultures so far negative, sputum cultures negative Objective - Vital Signs Vital signs: Vital Signs Temp 97.6 F 05/05/23 07:21 Pulse 90 05/05/23 11:28 Resp 20 05/05/23 11:28 BP 122/61 05/05/23 07:21 Pulse Ox 97 05/05/23 07:21 FiO2 Intake & Output 05/04/23 05/05/23 05/05/23 18:59 06:59 18:59 Intake Total 680 100 Output Total 1000 250 Balance -320 -250 100 Weight 61.235 kg Intake: Oral 680 100 Output: Urine 1000 250 Other: Voiding Method External Catheter External Catheter External Catheter # Voids 1 - Exam GENERAL DESCRIPTION: An elderly female lying in bed in no distress RESPIRATORY SYSTEM: Unlabored breathing , decreased breath sounds at bases HEART: S1 S2 regular rate and rhythm , ABDOMEN: Soft , no tenderness EXTREMITIES: No edema feet - Labs CBC & Chem 7: 05/05/23 04:23 05/05/23 04:23 Labs: Abnormal Lab Results - Last 24 Hours (Table) 05/05/23 05/05/23 Range/Units 04:23 04:23 WBC 15.50 H (4.50-10.00) X 10*3/uL RBC 2.43 L (4.10-5.20) X 10*6/uL Hgb 8.3 L (12.0-15.0) g/dL Hct 25.4 L (37.2-46.3) % MCV 104.5 H (80.0-97.0) FL MCH 34.2 H (27.0-32.0) pg RDW 17.3 H (11.5-14.5) % Plt Count 633 H (140-440) X 10*3/uL MPV 8.9 L (9.5-12.2) FL Sodium 131 L (135-145) mmol/L Carbon Dioxide 20.6 L (21.6-31.8) mmol/L Anion Gap 12.40 H (4.00-12.00) mmol/L BUN/Creatinine Ratio 24.00 H (12.00-20.00) Ratio Calcium 8.1 L (8.7-10.3) mg/dL Assessment and Plan (1) Leukocytosis Current Visit: Yes Status: Acute Code(s): D72.829 - ELEVATED WHITE BLOOD CELL COUNT, UNSPECIFIED SNOMED Code(s): 490703679 (2) Allergy to sulfa drugs Current Visit: Yes Status: Acute Code(s): Z88.2 - ALLERGY STATUS TO SULFONAMIDES SNOMED Code(s): 06557669 (3) COVID-19 Current Visit: Yes Status: Acute Priority: High Code(s): U07.1 - COVID-19 SNOMED Code(s): 906916066 (4) Pneumonia Current Visit: Yes Status: Acute Priority: High Code(s): J18.9 - PNEUMONIA, UNSPECIFIED ORGANISM SNOMED Code(s): 571890869 Plan: 1patient presented to the hospital with increasing weakness and this patient tested positive for COVID-19 about a week ago now presenting to the hospital with increasing weakness cough patient did have elevated white count and CT of the chest that shows consolidation and mucous plugging throughout the right upper and lower lobe concerning for secondary bacterial pneumonia 2patient did have elevated CRP and a procalcitonin, sputum culture obtained currently pending blood culture so far negative 3patient is slowly clinically improving and the patient white count is trending down, patient has received a 7-day course of Rocephin however with white count still elevated we will switch her to oral Augmentin and monitor clinical course closely Thank you for this consultation we will follow the patient along with you Time with Patient: Less than 30
[2023-05-05] MEDS: AMOXIC-POT CLAV 875-125MG 1 EACH TAB PO SCH (21:20)
[2023-05-05] MEDS: ATORVASTATIN 10 MG TAB PO SCH (21:20)
[2023-05-05] MEDS: ASCORBIC ACID 500 MG TAB PO SCH (21:20)
[2023-05-05] MEDS: CHOLECALCIFEROL 25 MCG (1000 IU) TABLET PO SCH (21:20)
[2023-05-05] MEDS: CALCIUM CARBONATE 500 MG CHEWABLE PO SCH (21:20)
[2023-05-05] MEDS: FLUTICASONE 50MCG/SPRAY NASAL 16GM EA NOSTRIL SCH (21:21)
[2023-05-06] MEDS: SODIUM CHLORIDE 0.9% 1,000 ML IV SCH ×4 (01:22→10:41)
[2023-05-06] MEDS: LEVOTHYROXINE 75 MCG TAB PO SCH (06:25)
[2023-05-06] MEDS: PANTOPRAZOLE 40 MG TABLET PO SCH (06:25)
[2023-05-06] MEDS: ACETAMINOPHEN TAB 500 MG TAB PO PRN ×2 (06:38→14:58)
[2023-05-06] MEDS: traMADol 50 MG TAB PO PRN ×2 (07:29→14:05)
[2023-05-06] MEDS: LORATADINE 10 MG TAB PO SCH (07:56)
[2023-05-06] MEDS: AMOXIC-POT CLAV 875-125MG 1 EACH TAB PO SCH (07:56)
[2023-05-06] MEDS: RIVAROXABAN 20 MG TAB PO SCH (07:56)
[2023-05-06] MEDS: SERTRALINE 50 MG TAB PO SCH (07:56)
[2023-05-06] MEDS: MEGESTROL 400 MG/10 ML CUP PO SCH (07:56)
[2023-05-06] MEDS: ASPIRIN 81 MG PO SCH (07:56)
[2023-05-06] MEDS: polyethylene glycoL 3350 17 GM POWD.PACK PO SCH (07:56)
[2023-05-06] MEDS: ALPRAZolam 0.5 MG TAB PO PRN ×2 (08:25→15:00)
[2023-05-06] MEDS: DEXAMETHASONE SOD PHOSPHATE 10 MG/ML 1 ML VIAL IVP SCH (08:25)
[2023-05-06] MEDS: CARBAMIDE PEROXIDE 6.5% DROPS 15 ML BTL RIGHT EAR SCH (08:25)
[2023-05-06] MEDS: guaiFENesin SYRUP 100MG/5ML 200 MG/10 ML CUP PO PRN ×2 (08:34→14:06)
[2023-05-06] MEDS: ALBUTEROL HFA INHALER INHALATION PRN ×2 (08:45→12:30)
--- NOTE | 2023-05-06 09:11 | XR ---
EXAMINATION TYPE: XR chest 1V DATE OF EXAM: 05/06/2023 COMPARISON: 05/04/2023 HISTORY: 82 year-old female lung cancer, COVID 19, pneumonia, sepsis TECHNIQUE: Single frontal view of the chest is obtained. FINDINGS: Volume loss in the right hemithorax with extensive pleural parenchymal opacities. Which appear relati vely similar. Some aerated lung remains at the right base. I'm going patchy medial left basilar opaci ty. IMPRESSION: 1. Ongoing volume loss with extensive pleural-parenchymal opacities throughout the right lung. Some a erated lung remains at the right base. 2. Ongoing patchy medial left basilar opacity.
--- NOTE | 2023-05-06 12:49 | P.DS ---
Providers Date of admission: 04/27/23 22:06 Expected date of discharge: 05/06/23 Attending physician: Rhett Mcclelland Consults: 04/27/23 22:04 Consult Physician Routine Consulting Provider: Abdirahman Frederick Consult Reason/Comments: Oncological care Do you want consulting provider notified?: Yes 04/27/23 22:05 Consult Physician Routine Consulting Provider: Hakan Astudillo Consult Reason/Comments: Lung cancer, evaluate for pneumonia, COVID-19 Do you want consulting provider notified?: Yes 04/28/23 10:00 Consult Physician Urgent Consulting Provider: Silvio Saenz Consult Reason/Comments: covid, pna, elev wbc Do you want consulting provider notified?: Yes Primary care physician: Sophia Samaritan Hospital Course: 82-year-old lady with past medical significant for lung cancer brought to the ER for generalized weakness. Patient stated that she has not been feeling herself in the last few days. Patient has been complaining of generalized weakness and fatigue. Patient did test positive for COVID-19 one week back. Patient has been complaining of cough and shortness of breath. Cough is productive. Denies any chest pain or palpitation. There is orthopnea or pnd. No complete of fever or chills at home. Patient has been complaining of decreased appetite. Because of the symptoms, patient came to the ER Initial lab work done in the ER showed WBC 25.9, hemoglobin 10.8, platelet count 452, sodium 131, potassium 4.1, BUN 14.7, creatinine 0.6, AST 70, ALT 165, CRP 21.6 UA negative for infection Influenza A not detected Influenza B not detected RSV not detected COVID-19 detected Chest x-ray done in the ER showed large pleural fluid election with right lower lobe consolidation CT chest done showed consolidation and mucous plugging throughout the right upper and middle lobes. Mucous plugging and collapse of the right lower lobe Patient admitted to internal medicine service 04/29/2023 Patient is seen in follow up today being followed by pulmonary and infectious disease. Patient with recent covid 19 and concerns for pneumonia and with significant hx of lung Ca. Patient is afebrile and continued on 6L and recommend weaning FI02 as tolerated. Patient with overall weakness and being evaluated by PT/OT with possible ecf being planned. Patient needs encouragement with meals and increased activity as tolerated. IV abx in the form of ceftriaxone and zithromax to continue. 04/30/2023 Patient is seen in follow-up this morning continues to be extremely weak maintained on 6 L reporting shortness of breath. Patient is extremely frail and thin built and appears elderly and ill-appearing. Patient is somewhat eating and needs encouragement. Patient also continued on IV antibiotics with infectious disease following as well as pulmonary. Patient is currently afebrile with no reported chest pain or palpitations. 05/01/2023: Patient seen and evaluated bedside, patient been treated for Covid, patient on 6 L of oxygen, son at bedside as well. Patient states breathing has improved denies fever, chills, chest pain, hemoptysis 05/02/2023: Patient seen and evaluated bedside, family at bedside as well, significant improvement noted patient's her breathing better chest x-ray has improved as well right ear discomfort has improved continue to use eardrops continue with current medical management 05/03/2023: Patient seen and evaluated bedside, patient breathing has improved, white cell count remains elevated likely from steroid. Continue current management including steroids, oxygen supplementation, breathing treatments right ear discomfort has resolved. Grandson at bedside explained K plan. Patient does complain of generalized weakness 05/04/2023: Patient seen and evaluated bedside. During assessment patient is alert and oriented 3, nasal cannula in place, son at bedside. Leukocytosis WBC count 17.2 hemoglobin 8.7 platelet 710. CRP yesterday was 1.1 continued to have ill appearance will need discharge to subacute rehab 05/05/2023: Patient seen and evaluated bedside, patient oxygen requirements remained stable however continues to remain chronically ill will address code" status or family's prognosis remains poor secondary to underlying malignancy. WBC count 15.5, hemoglobin 8.3 sodium 131. CRP within normal limits no > patient seen and evaluated bedside, patient is alert, on 3 L of oxygen, breathing remains at new baseline. Seen by pulmonary medicine, recommend discharge to rehab with outpatient follow-up with oncology PHYSICAL EXAMINATION: GENERAL: The patient is alert and oriented x3, ill appearance, nasal cannula in place, thin built HEENT: Pupils are round and equally reacting to light. EOMI. No scleral icterus. No conjunctival pallor. Normocephalic, atraumatic. No pharyngeal erythema. No thyromegaly. CARDIOVASCULAR: S1 and S2 present. No murmurs, rubs, or gallops. PULMONARY: Decreased breath sounds bilaterally no crackles audible ABDOMEN: Soft, nontender, nondistended, normoactive bowel sounds. No palpable organomegaly. MUSCULOSKELETAL: No joint swelling or deformity. EXTREMITIES: No cyanosis, clubbing, or pedal edema. NEUROLOGICAL: Gross neurological examination did not reveal any focal deficits. Assessment: Assessment and plan * Acute hypoxic respiratory failure multifactorial secondary to Covid 19, underlying lung cancer and superimposed bacterial pneumonia * Acute metabolic encephalopathy improved * History of lung cancer * Protein calorie malnutrition moderate * Hypothyroidism * Sepsis secondary to pneumonia and Covid * In regards to respiratory failure continue patient on oxygen supplementation him , IV antibiotics including Rocephin>> transition to Augmentin for additional 7 days, continue breathing treatments * In regards to Covid 19 Anticoagulated on XARELTO , treated with dexamethasone , steroids, breathing treatment * In regards to hypothyroid continue Synthyroid * In regards to sepsis secondary to underlying pneumonia and Covid blood cultures collected remain negative. Received Rocephin and patient transition to oral Augmentin * Patient will need discharge to subacute rehab * Prognosis remains guarded with high risk for readmission discussed with family on 05/05/23 Plan - Discharge Summary New Discharge Prescriptions: New guaiFENesin SYRUP 100MG/5ML [Robitussin] 200 mg PO Q6HR PRN 5 Days #200 ml PRN Reason: Cough Amoxic-Pot Clav 875-125Mg [Augmentin 875-125] 1 each PO Q12HR 7 Days #14 tab Continue Acetaminophen Tab [Tylenol] 750 mg PO Q4H PRN MDD 10 TABLETS PRN Reason: Pain Or Fever > 100.5 Cholecalciferol [Vitamin D3 (25 Mcg = 1000 Iu)] 25 mcg PO HS Calcium Carbonate [Calcium] 600 mg PO HS Ascorbic Acid [Vitamin C] 500 mg PO HS Sertraline [Zoloft] 50 mg PO DAILY Levothyroxine Sodium [Synthroid] 88 mcg PO TUSA Omeprazole [PriLOSEC] 20 mg PO DAILY Prochlorperazine [Compazine] 10 mg PO Q6H PRN PRN Reason: Nausea Megestrol Acetate 625 mg PO DAILY Benzonatate [Tessalon Perle] 200 mg PO TID PRN PRN Reason: Cough Albuterol Sulfate [Albuterol Sulfate Hfa] 1 puff PO RT-Q4H PRN PRN Reason: Cough ALPRAZolam [Xanax] 0.5 mg PO BID PRN 3 Days #6 tab PRN Reason: Anxiety Loratadine [Claritin] 10 mg PO DAILY Aspirin EC [Ecotrin Low Dose] 81 mg PO DAILY Simvastatin [Zocor] 20 mg PO HS Levothyroxine Sodium [Synthroid] 75 mcg PO SUMOWETHFR Fluticasone Nasal [place] [Flonase Nasal [place]] 1 spray EA NOSTRIL HS Rivaroxaban [Xarelto] 20 mg PO DAILY L.acidoph,Paracasei, B.lactis [Probiotic] 2 cap PO DAILY Changed traMADol HCl [Ultram] 50 mg PO Q6H PRN 3 Days #12 tab PRN Reason: Pain Discharge Medication List Acetaminophen Tab [Tylenol] 750 mg PO Q4H PRN MDD 10 TABLETS 04/27/23 [History] Albuterol Sulfate [Albuterol Sulfate Hfa] 1 puff PO RT-Q4H PRN 04/27/23 [History] Ascorbic Acid [Vitamin C] 500 mg PO HS 04/27/23 [History] Aspirin EC [Ecotrin Low Dose] 81 mg PO DAILY 04/27/23 [History] Benzonatate [Tessalon Perle] 200 mg PO TID PRN 04/27/23 [History] Calcium Carbonate [Calcium] 600 mg PO HS 04/27/23 [History] Cholecalciferol [Vitamin D3 (25 Mcg = 1000 Iu)] 25 mcg PO HS 04/27/23 [History] Fluticasone Nasal [place] [Flonase Nasal [place]] 1 spray EA NOSTRIL HS 04/27/23 [History] L.acidoph,Paracasei, B.lactis [Probiotic] 2 cap PO DAILY 04/27/23 [History] Levothyroxine Sodium [Synthroid] 75 mcg PO SUMOWETHFR 04/27/23 [History] Levothyroxine Sodium [Synthroid] 88 mcg PO TUSA 04/27/23 [History] Loratadine [Claritin] 10 mg PO DAILY 04/27/23 [History] Megestrol Acetate 625 mg PO DAILY 04/27/23 [History] Omeprazole [PriLOSEC] 20 mg PO DAILY 04/27/23 [History] Prochlorperazine [Compazine] 10 mg PO Q6H PRN 04/27/23 [History] Rivaroxaban [Xarelto] 20 mg PO DAILY 04/27/23 [History] Sertraline [Zoloft] 50 mg PO DAILY 04/27/23 [History] Simvastatin [Zocor] 20 mg PO HS 04/27/23 [History] ALPRAZolam [Xanax] 0.5 mg PO BID PRN 3 Days #6 tab 05/06/23 [Rx] Amoxic-Pot Clav 875-125Mg [Augmentin 875-125] 1 each PO Q12HR 7 Days #14 tab 05/06/23 [Rx] guaiFENesin SYRUP 100MG/5ML [Robitussin] 200 mg PO Q6HR PRN 5 Days #200 ml 05/06/23 [Rx] traMADol HCl [Ultram] 50 mg PO Q6H PRN 3 Days #12 tab 05/06/23 [Rx] Follow up Appointment(s)/Referral(s): Sophia Law DO [Primary Care Provider] - 1-2 days Discharge Disposition: TRANSFER TO SNF/ECF
[2023-05-06 15:26] VITALS: BP 125/75; PULSE 89; RESP 19; TEMP 98
--- NOTE | 2023-05-06 15:35 | P.PN ---
Subjective Progress Note Date: 05/06/23 Principal diagnosis: reason for follow-up is COVID-19 and pneumonia Patient is a 82-year-old female with a past medical history significant for lung cancer CVA TIA reflux pneumonia patient was brought into the hospital for evaluation generalized weakness apparently the patient did tested positive at home about a week ago for COVID-19 infection and the patient has been getting sick over the last few days, CT of the chest with consolidation and mucous plugging throughout the right upper and middle lobe concerning for possible pneumonia. On today's evaluation that is 05/06/2023 the patient denies having any fever or any chills, the patient is breathing comfortably on 3 L nasal cannula oxygen, patient denies chest pain the patient cough is decreased intensity mostly dry nature, the patient denies having any abdominal pain no nausea vomiting and no diarrhea Patient did have white count is down to 15.50, creatinine is 0.6 as of yesterday no lab draw today, procalcitonin is 5.58 blood cultures so far negative, sputum cultures negative Objective - Vital Signs Vital signs: Vital Signs Temp 98.5 F 05/06/23 07:17 Pulse 84 05/06/23 07:17 Resp 18 05/06/23 08:53 BP 134/73 05/06/23 07:17 Pulse Ox 97 05/06/23 08:44 FiO2 Intake & Output 05/05/23 05/06/23 05/06/23 18:59 06:59 18:59 Intake Total 300 900 200 Output Total 300 Balance 0 900 200 Intake: Oral 300 900 200 Output: Urine 300 Other: Voiding Method External Catheter External Catheter External Catheter # Voids 2 1 - Exam GENERAL DESCRIPTION: An elderly female lying in bed in no distress RESPIRATORY SYSTEM: Unlabored breathing , decreased breath sounds at bases HEART: S1 S2 regular rate and rhythm , ABDOMEN: Soft , no tenderness EXTREMITIES: No edema feet - Labs CBC & Chem 7: 05/05/23 04:23 05/05/23 04:23 Assessment and Plan (1) Leukocytosis Current Visit: Yes Status: Acute Code(s): D72.829 - ELEVATED WHITE BLOOD CELL COUNT, UNSPECIFIED SNOMED Code(s): 790196567 (2) Allergy to sulfa drugs Current Visit: Yes Status: Acute Code(s): Z88.2 - ALLERGY STATUS TO SULFONAMIDES SNOMED Code(s): 07121408 (3) COVID-19 Current Visit: Yes Status: Acute Priority: High Code(s): U07.1 - COVID-19 SNOMED Code(s): 537682672 (4) Pneumonia Current Visit: Yes Status: Acute Priority: High Code(s): J18.9 - PNEUMONIA, UNSPECIFIED ORGANISM SNOMED Code(s): 492158930 Plan: 1patient presented to the hospital with increasing weakness and this patient tested positive for COVID-19 about a week ago now presenting to the hospital with increasing weakness cough patient did have elevated white count and CT of the chest that shows consolidation and mucous plugging throughout the right upper and lower lobe concerning for secondary bacterial pneumonia 2patient did have elevated CRP and a procalcitonin, sputum culture obtained currently pending blood culture so far negative 3patient has shown clinical improvement plan is to finish therapy short course of oral Augmentin on discharge and close outpatient follow-up Thank you for this consultation we will follow the patient along with you Time with Patient: Less than 30
--- NOTE | 2023-05-06 16:12 | P.PN ---
Subjective Progress Note Date: 05/06/23 05/03/2023, I am seeing the patient in follow-up regarding acute hypoxic respiratory failure. The patient's respiratory failure was secondary to COVID- 19 infection/pneumonia and suspected superimposed bacterial pneumonia in addition to underlying primary lung cancer. The patient has been in the hospital for at least a week and a CAT scan of the chest was done showed volume loss on the right with collapse of the right upper lobe and the middle lobes and minimal aeration in the right lower lobe. There is also some consolidation versus malignancy and a partial collapse of the left lower lobe and evidence of paratracheal and subcarinal lymphadenopathy. Patient has been diagnosed having lung cancer in [place] in [place] under the care of Dr. Mckeon. The patienthan is on Decadron. The patient is on IV Rocephin. Sitting up in a chair. Note that the patient tested positive for COVID-19 prior to her hospital admission and she has been taking systemic chemotherapy regarding her lung cancer. In regards to COVID-19, this is her initial infection and the patient not sure if she has taken any vaccination. Procalcitonin obtained with machine was at 5.58 which raised concern for superinfection. White cell count was also elevated at 25.8. There is no subsequent drop in the white cell count. CRP level is at 1.7. Legionella urine antigen is negative. Electrolytes are stable. Renal function is stable. Blood work from today shows edematous count of 18.2 which is essentially compared to yesterday, with a hemoglobin of 8.8 and a platelet count of 706. Sodium is at 1:30, bicarb is at 21, BUN is a 50 with a creatinine of 0.6. CRP level is down to 1.1. The patient remains on 3 L of oxygen by nasal cannula. The patient is on IV Rocephin still, Decadron 6 in the grams IV every 24 hours and she is also on long-term anticoagulation with Xarelto. Rest of the medication were also reviewed. On today's evaluation of 05/04/2023, seeing the patient for a follow-up. Patient is quite debilitated. Denies having any major improvement since yesterday. She is on oxygen at 4 L. She has metastatic lung cancer as discussed earlier and the patient was given systemic chemotherapy to be followed up by immunotherapy. She got infected with Covid 19 and the patient remains on steroids and the patient is currently on Decadron 6 mg IV every 24 hours. Her appetite is poor. She is weak. She sounds quite debilitated. She is afebrile. She remains on oxygen at 3 L. The echoes at 17, hemoglobin of 8.7, and the patient is a BUN of 12 with a creatinine of 0.6 and the sodium levels of 132. Potassium levels at 4.2. No new complaints. Very much debilitated at this point in time. On 05/05/2023, no major change in the patient's condition. Oral intake is quite diminished. The patient is currently on 3 L of oxygen by nasal cannula with a pulse ox of 95%. She has some limited shortness of breath even at rest. She has a weak cough. The white cycles of 15.5. The lymph node at 8.3, sodium was at 131, BUN is 40 with a creatinine of 0.6. She is obviously quite ill and debilitated related to her cancer and superinfection with Covid 19. I made recommendations to address the patient's CODE STATUS as the patient may further decompensated during this current hospitalization. She remains awake and she continues to communicate. No focal neurological deficit. No nausea or emesis abdominal distention. On today's evaluation of , the patient on 3 L of Oxymizer cannula with a pulse ox of 97% no interval worsening shortness of breath. Chest x-ray shows ongoing volume loss with extensive pleural parenchymal opacity involving the right lung related to underlying malignancy. There is also ongoing patchy medial left basilar opacity. Nevertheless, there is no interval worsening shortness of breath. Oxygen slightly improved compared to yesterday. The patient remains on Augmentin. The patient is also on Decadron. The patient on anticoagulation. IV fluids are running at 100 level normal saline. Blood work shows a WBC count of 15 improved compared to yesterday with a hemoglobin of 8.3 stable. He has a 40 with a creatinine of 0.6 and a sodium level is 131 with a potassium level of 3.9. Objective - Vital Signs Vital signs: Vital Signs Temp 98.5 F 05/06/23 07:17 Pulse 84 05/06/23 07:17 Resp 18 05/06/23 08:53 BP 134/73 05/06/23 07:17 Pulse Ox 97 05/06/23 08:44 FiO2 Intake & Output 05/05/23 05/06/23 05/06/23 18:59 06:59 18:59 Intake Total 300 900 Output Total 300 Balance 0 900 Intake: Oral 300 900 Output: Urine 300 Other: Voiding Method External Catheter External Catheter External Catheter # Voids 2 1 - Exam GENERAL EXAM: Alert, pleasant 82-year-old female, resting in bed, on 3 L nasal cannula, no acute distress. HEAD: Normocephalic and atraumatic EYES: Normal reaction of pupils, equal size. NOSE: Clear with pink turbinates. THROAT: No erythema or exudates. NECK: No masses, no JVD. CHEST: No chest wall deformity. LUNGS: Equal air entry with diminished bibasilar lung sounds few crackles right lung base. No wheezes or rhonchi. CVS: S1 and S2 normal with no audible murmur, regular rhythm. No extra heart sounds ABDOMEN: No hepatosplenomegaly, active bowel sounds, no guarding or rigidity. SPINE: No scoliosis or deformity SKIN: No rashes CENTRAL NERVOUS SYSTEM: No focal deficits, tone is normal in all 4 extremities. EXTREMITIES: There is no peripheral edema, clubbing, or cyanosis. Peripheral pulses are intact. - Labs CBC & Chem 7: 05/05/23 04:23 05/05/23 04:23 Assessment and Plan Plan: Acute hypoxic respiratory failure, multifactorial. Patient is lung cancer receiving systemic chemotherapy. The patient also has COVID-19 infection. Procalcitonin level is elevated raising the concern for superinfection with bacteria. The patient is on IV Rocephin. The patient is also on Decadron. Oxygen requirements remain unchanged and the patient is to 3 L of oxygen by nasal cannula. The patient remains quite debilitated. She is weak. Oral intake is quite diminished. Lung cancer diagnosed in outside facility and a CAT scan of the chest that showed volume loss in the right lung involving the right upper lobe and the right middle lobe in addition to partial collapse of the left lower lobe paratracheal and subcarinal lymphadenopathy.There is no obvious occlusion of the right mainstem bronchus based on the CAT scan findings causing significant atelectasis and there is lymphadenopathy within the mediastinum as mentioned. Persistent cough secondary to above Shortness of breath secondary to above Chronic debility and generalized weakness and diminished appetite further complicated by Covid 19 infection. Hyperlipidemia Hypothyroidism Remote history of smoking Acute leukocytosis secondary to above Day of CVA and the patient will maintain on anticoagulation with Xarelto. Plan Repeat chest x-ray in the morning, findings are consistent with her history of malignancy. Still requiring oxygen at 3 L No interval worsening in his respiratory status patient will be switched to oral Augmentin and the patient will be released with understanding that the patient has very poor prognosis and high risk for readmission. Strongly advised a change in his cor status Complete the course of Decadron for a total of 10 days Continue anticoagulation with Xarelto Prognosis poor based on the presence of metastatic lung cancer with significant mass effect on the right main stem bronchus and multilobar lung collapse. The medical team is going to address the advanced directive clinical status as the patient carries a very poor prognosis in general. Patient is being discharged to subacute rehabilitation
== END 2023-05-06 16:50 | DRG 871 ==
LOC: EC 15:00 → 4SSUR 22:06
PROVIDERS: ADMIT Hospitalist; ATTEND Hospitalist
DX: A41.89 Other specified sepsis (principal); G93.41 Metabolic encephalopathy; U07.1 COVID-19; J15.9 Unspecified bacterial pneumonia; J12.82 Pneumonia due to coronavirus disease 2019; J96.01 Acute respiratory failure with hypoxia; C7A.8 Other malignant neuroendocrine tumors; C79.9 Secondary malignant neoplasm of unspecified site; E44.0 Moderate protein-calorie malnutrition; Z68.1 Body mass index [BMI] 19.9 or less, adult; J90 Pleural effusion, not elsewhere classified; E87.20 Acidosis, unspecified; R54 Age-related physical debility; R59.0 Localized enlarged lymph nodes; K21.9 Gastro-esophageal reflux disease without esophagitis; E86.0 Dehydration; E03.9 Hypothyroidism, unspecified; E78.5 Hyperlipidemia, unspecified; I25.10 Atherosclerotic heart disease of native coronary artery without angina pectoris; Z28.311 Partially vaccinated for COVID-19; Z79.01 Long term (current) use of anticoagulants; Z79.82 Long term (current) use of aspirin; Z79.890 Hormone replacement therapy; Z79.899 Other long term (current) drug therapy; Z86.73 Personal history of transient ischemic attack (TIA), and cerebral infarction without residual deficits; Z88.2 Allergy status to sulfonamides; Z92.21 Personal history of antineoplastic chemotherapy
CPT/HCPCS: 36415; 71045; 71260; 80048; 80053; 81003; 82728; 83605; 83615; 83735; 84145; 85025; 85027; 85610; 85730; 86140; 87040; 87070; 87205; 87449; 87636; 93005; 94640; 94760; 96361; 96365; 96367; 99291